=== PATIENT | female | born 1945 | race Caucasian/White ===

== ENCOUNTER 2019-03-24 16:55 | Emergency (ER) | payer OTHER ==
--- OUTSIDE RECORDS SUMMARY | 2019-03-24 18:20 | XMS REPORT ---
:1945 [facility] Address [address] [place] [address] Dr. Basilio [address] [place] [address] Care Team Providers Name Role Phone Unavailable Unavailable Unavailable Problems This patient has no known problems. Allergies, Adverse Reactions, Alerts This patient has no known allergies or adverse reactions. Medications This patient has no known medications.
[2019-03-24 18:30] LABS: Absolute Lymphocytes (CBC) 3.5 K/uL (0.7-4.9); Eosinophils % 2.6 % (0-4.4); Hematocrit 48.3 % (36.0-45.0); Lymphocytes % 46.2 % (15.3-44.8); MPV 8.8 fL (7.6-11.3); Monocytes % 10.5 % (3.3-12.3)
[2019-03-24 18:32] LABS: Protime INR 0.99
[2019-03-24] MEDS ORDERED: ALBUTEROL 2.5 MG/3 ML NEB SOL ONE (18:39)
[2019-03-24 18:56] LABS: ALT/SGPT 12 U/L (12-78); AST/SGOT 19 U/L (15-37); Albumin 4.1 g/dL (3.4-5.0); Alkaline Phosphatase 77 U/L (45-117); BUN Blood Urea Nitrogen 14 mg/dL (7-18); Bicarbonate 34 mmol/L (21-32); Bilirubin Direct 0.1 mg/dL (0-0.2); Bilirubin Total 0.5 mg/dL (0.2-1.0); Glucose Level 91 mg/dL (74-106); Magnesium 2.7 mg/dL (1.8-2.4); NT PRO-BNP 34 pg/mL (<125); Potassium 4.2 mmol/L (3.5-5.1); Protein, Total 7.6 g/dL (6.4-8.2); Sodium Level 140 mmol/L (136-145); Troponin (Emerg Dept Use Only) < 0.02 ng/mL (0.0-0.045)
--- NOTE | 2019-03-24 18:57 | RAD REPORT ---
EXAM DESCRIPTION: RAD - Chest Single View - 03/24/2019 6:51 pm CLINICAL HISTORY: COPD Chest pain. COMPARISON: Chest Single View dated 01/31/2016; CHEST PA AND LAT 2 VIEW dated 04/14/2015; CHEST PA AND LAT 2 VIEW dated 09/01/2013; CHEST SINGLE VIEW dated 01/08/2006 FINDINGS: Portable technique limits examination quality. The lungs are emphysematous but grossly clear. The heart is normal in size. No displaced fractures. IMPRESSION: No acute intrathoracic process suspected.
--- NOTE | 2019-03-24 19:44 | ER ---
Nurse's Notes [facility] Name: Lidia Wall Age: 73 yrs Sex: Female : 1945 Arrival Date: 03/24/2019 Time: 16:59 Bed 18 Private MD: Diagnosis: visit for abnormal lab (potassium) re-check;generalized weakness Presentation: 03/24 17:12 Presenting complaint: Patient states: SENT FROM PCP FOR K 6.4 ON LABS THIS AM. bp Transition of care: patient was not received from another setting of care. Onset of symptoms is unknown. Risk Assessment: Do you want to hurt yourself or someone else? Patient reports no desire to harm self or others. Initial Sepsis Screen: Does the patient meet any 2 criteria? No. Patient's initial sepsis screen is negative. Does the patient have a suspected source of infection? No. Patient's initial sepsis screen is negative. Care prior to arrival: None. 17:12 Method Of Arrival: Ambulatory bp 17:12 Acuity: EMILY 3 bp Triage Assessment: 18:13 General: Appears in no apparent distress. uncomfortable, Behavior is calm, cooperative, hj appropriate for age. Pain: Denies pain. EENT: No signs and/or symptoms were reported regarding the EENT system. Neuro: Level of Consciousness is awake, alert, obeys commands, Oriented to person, place, time, situation, Appropriate for age. Cardiovascular: Capillary refill < 3 seconds Patient's skin is warm and dry. Respiratory: Airway is patent Respiratory effort is even, unlabored, Respiratory pattern is regular, symmetrical. GI: No signs and/or symptoms were reported involving the gastrointestinal system. : No signs and/or symptoms were reported regarding the genitourinary system. Derm: No signs and/or symptoms reported regarding the dermatologic system. Musculoskeletal: No signs and/or symptoms reported regarding the musculoskeletal system. Historical: - Allergies: 17:17 NKDA; bp - Home Meds: 17:17 Plavix 75 mg Oral tab 1 tab once daily [Active]; Symbicort 160-4.5 mcg/actuation bp inhalation HFAA 2 puffs 2 times per day [Active]; rosuvastatin 10 mg oral tab 1 tab once daily [Active]; Albuterol Inhl [Active]; paroxetine HCl 25 mg oral Tb24 1 tab once daily [Active]; Microzide 12.5 mg oral cap 1 cap once daily [Active]; topiramate 50 mg oral CSpX 1 cap once daily [Active]; Lasix 40 mg Oral tab 1 tab 2 times per day [Active]; - PMHx: 17:17 COPD; CVA; Hyperlipidemia; Hypertension; bp - Immunization history:: Adult Immunizations up to date. - Social history:: Smoking status: Patient uses tobacco products, smokes one pack cigarettes per day. - Ebola Screening: : No symptoms or risks identified at this time. Screenin:13 Abuse screen: Denies threats or abuse. Denies injuries from another. Nutritional hj screening: No deficits noted. Tuberculosis screening: No symptoms or risk factors identified. Fall Risk None identified. Assessment: 18:20 General: Appears in no apparent distress. uncomfortable, Behavior is calm, cooperative, hj appropriate for age. Pain: Denies pain. Neuro: Level of Consciousness is awake, alert, obeys commands, Oriented to person, place, time, situation, Appropriate for age. Cardiovascular: Capillary refill < 3 seconds Patient's skin is warm and dry. Respiratory: Airway is patent Respiratory effort is even, unlabored, Respiratory pattern is regular, symmetrical. GI: No signs and/or symptoms were reported involving the gastrointestinal system. : No signs and/or symptoms were reported regarding the genitourinary system. EENT: No signs and/or symptoms were reported regarding the EENT system. Derm: No signs and/or symptoms reported regarding the dermatologic system. Musculoskeletal: No signs and/or symptoms reported regarding the musculoskeletal system. 19:15 Reassessment: Patient appears in no apparent distress at this time. Patient and/or cc3 family updated on plan of care and expected duration. Pain level reassessed. Patient is alert, oriented x 3, equal unlabored respirations, skin warm/dry/pink. Received this female patient from morning shift REAL Quinn with IV cannula gauge 20 at the right ACV saline locked. Patient denies pain at this time. 20:05 Reassessment: Patient appears in no apparent distress at this time. Patient and/or cc3 family updated on plan of care and expected duration. Pain level reassessed. Patient is alert, oriented x 3, equal unlabored respirations, skin warm/dry/pink. Dr. Palma discharged the patient home, no prescription given. IV cannula removed and patient left ER vitally stable and ambulatory with her daughter. Patient denies pain at this time. Patient states feeling better. Vital Signs: 17:17 BP 137 / 64; Pulse 93; Resp 18; Temp 97.8; Pulse Ox 93% ; Weight 61.23 kg; Height 5 ft. bp 8 in. (172.72 cm); 18:26 BP 122 / 79; Pulse 79; Resp 18; Pulse Ox 93% on R/A; hj 19:45 BP 114 / 76; Pulse 71; Resp 17 S; Temp 98.4(O); Pulse Ox 96% on R/A; cc3 17:17 Body Mass Index 20.53 (61.23 kg, 172.72 cm) bp ED Course: 16:59 Patient arrived in ED. mr 17:14 Triage completed. bp 17:17 Arm band placed on. bp 18:01 Justice Palma MD is Attending Physician. wa 18:09 Kai Rodrigues, REAL is Primary Nurse. hj 18:13 Patient has correct armband on for positive identification. Placed in gown. Bed in low hj position. Call light in reach. Side rails up X 1. Adult w/ patient. 18:20 Initial lab(s) drawn, by in, sent to lab. Inserted saline lock: 20 gauge in right hj antecubital area, using aseptic technique. Blood collected. 18:28 EKG done, by ED staff, reviewed by Justice Palma MD. 3 18:51 XRAY Chest (1 view) In Process Unspecified. EDVA 19:19 Lidia Lee is Primary Nurse. cc3 20:05 No provider procedures requiring assistance completed. IV discontinued, intact, cc3 bleeding controlled, No redness/swelling at site. Pressure dressing applied. Administered Medications: 18:20 Drug: Albuterol 2.5 mg Route: Inhalation; hj Outcome: 19:43 Discharge ordered by . wa 20:05 Discharged to home ambulatory, with family. cc3 20:05 Condition: stable 20:05 Discharge instructions given to patient, family, Instructed on discharge instructions, follow up and referral plans. Demonstrated understanding of instructions, follow-up care. 20:13 Patient left the ED. cc3 Signatures: Dispatcher [employer] [facility] Ronel Clifford mr Kai Rodrigues, RN Marie Escalera [facility] Justice Palma MD MD wa Peltier, Brian, RN RN bp Cordel, Charlene cc3 Corrections: (The following items were deleted from the chart) 21:40 20:05 Reassessment: Patient appears in no apparent distress at this time. Patient cc3 and/or family updated on plan of care and expected duration. Pain level reassessed. Patient is alert, oriented x 3, equal unlabored respirations, skin warm/dry/pink. Dr. Palma discharged the patient home, no prescription given. IV cannula removed and patient left ER vitally stable and ambulatory with her daughter. Patient denies pain at this time. cc3
--- NOTE | 2019-03-24 19:44 | EDPHYS ---
Physician Documentation [facility] Name: Lidia Wall Age: 73 yrs Sex: Female : 1945 Arrival Date: 03/24/2019 Time: 16:59 Bed 18 Private MD: ED Physician Justice Palma Historical: - Allergies: 03/24 17:17 NKDA; bp - Home Meds: 17:17 Plavix 75 mg Oral tab 1 tab once daily [Active]; Symbicort 160-4.5 mcg/actuation bp inhalation HFAA 2 puffs 2 times per day [Active]; rosuvastatin 10 mg oral tab 1 tab once daily [Active]; Albuterol Inhl [Active]; paroxetine HCl 25 mg oral Tb24 1 tab once daily [Active]; Microzide 12.5 mg oral cap 1 cap once daily [Active]; topiramate 50 mg oral CSpX 1 cap once daily [Active]; Lasix 40 mg Oral tab 1 tab 2 times per day [Active]; - PMHx: 17:17 COPD; CVA; Hyperlipidemia; Hypertension; bp - Immunization history:: Adult Immunizations up to date. - Social history:: Smoking status: Patient uses tobacco products, smokes one pack cigarettes per day. - Ebola Screening: : No symptoms or risks identified at this time. Vital Signs: 17:17 BP 137 / 64; Pulse 93; Resp 18; Temp 97.8; Pulse Ox 93% ; Weight 61.23 kg; Height 5 ft. bp 8 in. (172.72 cm); 18:26 BP 122 / 79; Pulse 79; Resp 18; Pulse Ox 93% on R/A; hj 19:45 BP 114 / 76; Pulse 71; Resp 17 S; Temp 98.4(O); Pulse Ox 96% on R/A; cc3 17:17 Body Mass Index 20.53 (61.23 kg, 172.72 cm) bp MDM: 18:01 Patient medically screened. 03/24 18:13 Order name: Basic Metabolic Panel 03/24 18:13 Order name: CBC with Diff; Complete Time: 19:19 03/24 18:13 Order name: LFT's; Complete Time: 19:19 03/24 18:13 Order name: Magnesium; Complete Time: 19:19 03/24 18:13 Order name: NT PRO-BNP; Complete Time: 19:19 in 03/24 18:13 Order name: PT-INR; Complete Time: 19:19 in 03/24 18:13 Order name: Troponin (emerg Dept Use Only); Complete Time: 19:19 in 03/24 18:13 Order name: XRAY Chest (1 view); Complete Time: 19:19 in 03/24 18:13 Order name: EKG; Complete Time: 18:16 in 03/24 18:13 Order name: Cardiac monitoring; Complete Time: 18:20 in 03/24 18:13 Order name: EKG - Nurse/Tech; Complete Time: 18:25 in 03/24 18:13 Order name: IV Saline Lock; Complete Time: 18: in 03/24 18:16 Order name: Basic Metabolic Panel; Complete Time: 19: [facility] 03/24 18:13 Order name: Labs collected and sent; Complete Time: 18:20 in 03/24 18:13 Order name: O2 Per Protocol; Complete Time: 18: in 03/24 18:13 Order name: O2 Sat Monitoring; Complete Time: 18:20 in Administered Medications: 18:20 Drug: Albuterol 2.5 mg Route: Inhalation; hj Disposition: 03/24/19 19:43 Discharged to Home. Impression: visit for abnormal lab (potassium) re-check, generalized weakness. - Condition is Stable. - Discharge Instructions: Weakness, [id number] - Medication Reconciliation Form, Thank You Letter, Antibiotic Education, Prescription Opioid Use form. - Follow up: Private Physician; When: 1 - 2 days; Reason: Recheck today's complaints. - Notes: your potassium is noted within normal limits today. please bring this lab to your doctors office for further evaluation Signatures: Dispatcher [facility] Kai Rodrigues RN RN hj Appiah, William, MD MD wa Peltier, Brian, RN RN Lidia Leach cc3 Corrections: (The following items were deleted from the chart) 20:13 19:43 03/24/2019 19:43 Discharged to Home. Impression: visit for abnormal lab cc3 (potassium) re-check; generalized weakness. Condition is Stable. Forms are Medication Reconciliation Form, Thank You Letter, Antibiotic Education, Prescription Opioid Use. Follow up: Private Physician; When: 1 - 2 days; Reason: Recheck today's complaints. wa
[2019-03-24 21:12] VITALS: TEMP 97.8; O2SAT 93
[2019-03-24 21:13] VITALS: BP 122/79
--- NOTE | 2019-03-24 22:20 | EKG ---
Test Date: 2019-03-24 Test Time: 18:28:34 Bulldogger: DEE MEASUREMENT RESULTS: Intervals: Rate: 73 CT: 162 QRSD: 88 QT: 430 QTc: 473 [place]: P: 76 CT: 162 QRS: 33 T: 42 INTERPRETIVE STATEMENTS: Normal sinus rhythm Biatrial enlargement Septal infarct, age undetermined Abnormal ECG Compared to ECG 03/03/2016 10:19:06 Atrial abnormality now present Myocardial infarct finding now present Sinus bradycardia no longer present Electronically Signed On 03-24-19 22:20:11 CDT by Bird Montoya
== END 2019-03-24 20:13 | disposition home or self-care (01) ==
LOC: ER 16:55
DX: E87.6 Hypokalemia (principal); R53.1 Weakness
CPT/HCPCS: 36415; 71045; 80048; 80076; 83735; 83880; 84484; 85025; 85610; 93005; 99284

== ENCOUNTER 2019-10-27 07:48 | Day surgery (SDC) | payer OTHER ==
--- OUTSIDE RECORDS SUMMARY | 2019-10-27 07:51 | XMS REPORT ---
:1945 Author Organization eClinicalWorks Care Team Providers Name Role Phone Loretta Kumar Provider Role Unavailable Allergies, Adverse Reactions, Alerts Substance Reaction Event Type N.K.D.A. Info Not Available Non Drug Allergy Problems Problem Type Condition Code Onset Dates Condition Status Problem Lumbago with sciatica, left side M54.42 Active Problem History of cerebrovascular accident I69.90 Active with current residual effects Problem Tobacco abuse counseling Z71.6 Active Problem Pure hypercholesterolemia E78.00 Active Problem Migraine, unspecified, not G43.901 Active intractable, with status migrainosus Problem Essential hypertension I10 Active Problem Peripheral vascular disease I73.9 Active Problem Depression with anxiety F41.8 Active Problem Hyperlipidemia E78.5 Active Problem COPD (chronic obstructive pulmonary J44.9 Active disease) Assessment Tobacco abuse counseling Z71.6 Active Assessment Pure hypercholesterolemia E78.00 Active Assessment Lesion of skin of cheek L98.9 Active Assessment Sebaceous cyst L72.3 Active Assessment Benign essential HTN I10 Active Assessment Depression with anxiety F41.8 Active Problem Other chronic pain G89.29 Active Assessment COPD (chronic obstructive pulmonary J44.9 Active disease) Problem Lumbago with sciatica, right side M54.41 Active Medications Medication Code Code Instructions Start End Status Dosage System Date Date ProAir HFA [facility] 10686529173 90MCG Active 2 puffs as Inhalation needed every 6 hrs as needed Simvastatin ND 87634049222 20 MG Orally Active 1 tablet Once a day in the evening PARoxetine HCl [facility] 47875952488 25 MG Orally Active 1 tablet ER Once a day in the morning Lisinopril ND 35865972572 20 MG Orally March Active 1 tablet Once a day 2017 Lasix [facility] 63972772423 40 MG Orally Active 1 tablet Once a day Trelegy Ellipta [facility] 24807983118 100-62.5-25 Active 1 puff MCG/INH Inhalation Once a day BuPROPion HCl [facility] [address]-36 150 MG Orally Active 1 tablet ER (XL) Twice a day in the morning Plavix [facility] 15298255548 75 MG Orally December Active 1 tablet Once a day 2017 Results No Known Results Summary Purpose eClinicalWorks Submission
--- OUTSIDE RECORDS SUMMARY | 2019-10-27 07:51 | XMS REPORT ---
:1945 Author Organization eClinicalWorks Care Team Providers Name Role Phone Loretta Kumar Provider Role Unavailable Allergies, Adverse Reactions, Alerts Substance Reaction Event Type N.K.D.A. Info Not Available Non Drug Allergy Problems Problem Type Condition Code Onset Dates Condition Status Problem History of cerebrovascular I69.90 Active accident with current residual effects Problem Peripheral vascular disease I73.9 Active Problem Depression with anxiety F41.8 Active Problem Puncture wound T14.8XXA Active Problem Essential hypertension I10 Active Problem Positive colorectal cancer R19.5 Active screening using Cologuard test Problem Hyperlipidemia E78.5 Active Problem COPD (chronic obstructive J44.9 Active pulmonary disease) Problem Pure hypercholesterolemia E78.00 Active Problem Migraine, unspecified, not G43.901 Active intractable, with status migrainosus Assessment Essential hypertension I10 Active Assessment Depression with anxiety F41.8 Active Assessment Positive colorectal cancer R19.5 Active screening using Cologuard test Problem Other chronic pain G89.29 Active Problem Lumbago with sciatica, right side M54.41 Active Assessment COPD (chronic obstructive J44.9 Active pulmonary disease) Problem Lumbago with sciatica, left side M54.42 Active Problem Tobacco abuse counseling Z71.6 Active Medications Medication Code Code Instructions Start End Status Dosage System Date Date Lisinopril [facility] 41789245253 20 MG Orally December Active 1 tablet Once a day 2017 PARoxetine HCl [facility] 50860327096 25 MG Orally Active 1 tablet ER Once a day in the morning BuPROPion HCl [facility] 05006050985 150 MG Orally Active 1 tablet ER (XL) Twice a day in the morning Simvastatin ND 65786633020 20 MG Orally Active 1 tablet Once a day in the evening Lasix ND 21574818025 40 MG Orally Active 1 tablet Once a day Trelegy Ellipta [facility] 45225021171 100-62.5-25 Active 1 puff MCG/INH Inhalation Once a day Plavix [facility] 64312445258 75 MG Orally December Active 1 tablet Once a day 2017 ProAir HFA [facility] 84145337798 90MCG Inhalation Active 2 puffs as every 6 hrs as needed needed Results No Known Results Summary Purpose eClinicalWorks Submission
--- OUTSIDE RECORDS SUMMARY | 2019-10-27 07:51 | XMS REPORT ---
:1945 Author Organization eClinicalWorks Care Team Providers Name Role Phone Loretta Kumar Provider Role Unavailable Allergies, Adverse Reactions, Alerts Substance Reaction Event Type N.K.D.A. Info Not Available Non Drug Allergy Problems Problem Type Condition Code Onset Dates Condition Status Problem Tobacco abuse counseling Z71.6 Active Problem Depression with anxiety F41.8 Active Problem History of cerebrovascular I69.90 Active accident with current residual effects Problem Essential hypertension I10 Active Problem Pure hypercholesterolemia E78.00 Active Problem Puncture wound T14.8XXA Active Problem COPD (chronic obstructive J44.9 Active pulmonary disease) Problem Peripheral vascular disease I73.9 Active Problem Migraine, unspecified, not G43.901 Active intractable, with status migrainosus Problem Hyperlipidemia E78.5 Active Problem Other chronic pain G89.29 Active Assessment Puncture wound T14.8XXA Active Problem Lumbago with sciatica, right side M54.41 Active Assessment Encounter for immunization Z23 Active Problem Lumbago with sciatica, left side M54.42 Active Medications Medication Code Code Instructions Start End Status Dosage System Date Date Lasix [facility] 78922999432 40 MG Orally Active 1 tablet Once a day BuPROPion HCl [facility] [address]-04 150 MG Orally Active 1 tablet ER (XL) Twice a day in the morning Plavix [facility] 69369629517 75 MG Orally December Active 1 tablet Once a day 2017 Simvastatin [facility] 28147586203 20 MG Orally Active 1 tablet Once a day in the evening PARoxetine HCl [facility] 19799091152 25 MG Orally Active 1 tablet ER Once a day in the morning Lisinopril [facility] 62796562051 20 MG Orally December Active 1 tablet Once a day 2017 ProAir HFA [facility] 45802998962 90MCG Active 2 puffs as Inhalation needed every 6 hrs as needed Trelegy Ellipta [facility] 66059791740 100-62.5-25 Active 1 puff MCG/INH Inhalation Once a day Results No Known Results Immunizations Vaccine Administration Date FLUZONE HIGH DOSE OVER 65 Sep 08, 2019 Prevnar 13 -Pneumonia Vaccine Sep 08, 2019 Td Sep 08, 2019 Summary Purpose eClinicalWorks Submission
--- OUTSIDE RECORDS SUMMARY | 2019-10-27 07:51 | XMS REPORT ---
:1945 Author Organization [facility] Address [address] [place] [address] Dr. Basilio [address] [place] [address] Care Team Providers Name Role Phone Unavailable Unavailable Unavailable Problems This patient has no known problems. Allergies, Adverse Reactions, Alerts This patient has no known allergies or adverse reactions. Medications This patient has no known medications.
[2019-10-27] MEDS ORDERED: Ringers Lactate 1,000 ML IV ONE (08:18)
[2019-10-27 08:32] VITALS: BP 143/62; TEMP 98.7; O2SAT 99
== END 2019-10-27 10:21 | disposition home or self-care (01) ==
LOC: OR 07:48
PROVIDERS: ATTEND Surgery
DX: R19.5 Other fecal abnormalities (principal); Z53.8 Procedure and treatment not carried out for other reasons; J44.9 Chronic obstructive pulmonary disease, unspecified; F17.200 Nicotine dependence, unspecified, uncomplicated; Z79.02 Long term (current) use of antithrombotics/antiplatelets; Z86.73 Personal history of transient ischemic attack (TIA), and cerebral infarction without residual deficits
CPT/HCPCS: J7120

== ENCOUNTER 2019-11-05 07:27 | Day surgery (SDC) | payer OTHER ==
--- OUTSIDE RECORDS SUMMARY | 2019-11-05 07:29 | XMS REPORT ---
:1945 Author [facility] Address [address] [place] [address] Dr. Basilio [address] [place] [address] Care Team Providers Name Role Phone Unavailable Unavailable Unavailable Problems This patient has no known problems. Allergies, Adverse Reactions, Alerts This patient has no known allergies or adverse reactions. Medications This patient has no known medications.
--- OUTSIDE RECORDS SUMMARY | 2019-11-05 07:29 | XMS REPORT ---
[...] Status Dosage System Date Date ProAir HFA [facility] 10559222620 90MCG Active 2 puffs as Inhalation needed every 6 hrs as needed Simvastatin ND 11960296295 20 MG Orally Active 1 tablet Once a day in the evening PARoxetine HCl [facility] 15240719030 25 MG Orally Active 1 tablet ER Once a day in the morning Lisinopril ND 75798272622 20 MG Orally March Active 1 tablet Once a day 2017 Lasix [facility] 72359889512 40 MG Orally Active 1 tablet Once a day Trelegy Ellipta [facility] 76393890077 100-62.5-25 Active 1 puff MCG/INH Inhalation Once a day BuPROPion HCl [facility] [address]-72 150 MG Orally Active 1 tablet ER (XL) Twice a day in the morning Plavix [facility] 71560666548 75 MG Orally December Active 1 tablet Once a day 2017 Results No Known Results Summary Purpose eClinicalWorks Submission
--- OUTSIDE RECORDS SUMMARY | 2019-11-05 07:29 | XMS REPORT ---
[...] End Status Dosage System Date Date Lasix [facility] 69532357898 40 MG Orally Active 1 tablet Once a day BuPROPion HCl [facility] [address]-06 150 MG Orally Active 1 tablet ER (XL) Twice a day in the morning Plavix [facility] 36395411894 75 MG Orally December Active 1 tablet Once a day [address] [facility] 25650040196 20 MG Orally Active 1 tablet Once a day in the evening PARoxetine HCl [facility] 65761805396 25 MG Orally Active 1 tablet ER Once a day in the morning Lisinopril [facility] 69320897557 20 MG Orally December Active 1 tablet Once a day 2017 ProAir HFA [facility] 26583031627 90MCG Active 2 puffs as Inhalation needed every 6 hrs as needed Trelegy Ellipta [facility] 43781898223 100-62.5-25 Active 1 puff MCG/INH Inhalation Once a day Results No Known Results Immunizations Vaccine Administration Date FLUZONE HIGH DOSE OVER 65 Sep 08, 2019 Prevnar 13 -Pneumonia Vaccine Sep 08, 2019 Td Sep 08, 2019 Summary Purpose eClinicalWorks Submission
--- OUTSIDE RECORDS SUMMARY | 2019-11-05 07:30 | XMS REPORT ---
[...] End Status Dosage System Date Date Lisinopril [facility] 46383816379 20 MG Orally December Active 1 tablet Once a day 2017 PARoxetine HCl [facility] 36214679263 25 MG Orally Active 1 tablet ER Once a day in the morning BuPROPion HCl [facility] 10901478893 150 MG Orally Active 1 tablet ER (XL) Twice a day in the morning Simvastatin ND 80305842392 20 MG Orally Active 1 tablet Once a day in the evening Lasix ND 72211422615 40 MG Orally Active 1 tablet Once a day Trelegy Ellipta [facility] 26742871092 100-62.5-25 Active 1 puff MCG/INH Inhalation Once a day Plavix [facility] 70876040780 75 MG Orally December Active 1 tablet Once a day 2017 ProAir HFA [facility] 56120931525 90MCG Inhalation Active 2 puffs as every 6 hrs as needed needed Results No Known Results Summary Purpose eClinicalWorks Submission
[2019-11-05] MEDS ORDERED: Ringers Lactate 1,000 ML IV ONE (07:47)
[2019-11-05] MEDS ORDERED: propofoL 200 MG/20 ML VIAL IV ONE (08:15)
[2019-11-05] MEDS ORDERED: LIDOCAINE 1% MPF 5 ML VIAL ONE (08:15)
[2019-11-05] MEDS ORDERED: EPINEPHRINE/PF 1 MG/ML AMP ONE (08:16)
[2019-11-05 08:53] VITALS: TEMP 98
--- NOTE | 2019-11-05 09:20 | ENDO RPT ---
[address], [address] COLONOSCOPY PROCEDURE REPORT EXAM DATE: 11/05/2019 PATIENT NAME: Lidia Wall MR #: [id number] BIRTHDATE: 1945 ATTENDING: Dario Velasquez DR STATUS: outpatient PUBLISHING EDITOR: Marybeth Vela RN and Quinn Bennett [facility] INDICATIONS: The patient is a 73 yr old Female here for a colonoscopy due to Positive Cologuard (Fecal FIT) Test PROCEDURE PERFORMED: Colonoscopy with biopsy - cold polypectomy and Colonoscopy with directed submucosal injection(s) any substance MEDICATIONS: Per Anesthesia. ESTIMATED BLOOD LOSS: None CONSENT: The patient understands the risks and benefits of the procedure and understands that these risks include, but are not limited to: sedation, allergic reaction, infection, perforation and/or bleeding. Alternative means of evaluation and treatment include, among others: physical exam, x-rays, and/or surgical intervention. The patient elects to proceed with this endoscopic procedure. DESCRIPTION OF PROCEDURE: During intra-op preparation period all mechanical medical equipment was checked for proper function. Hand hygiene and appropriate measures for infection prevention was taken. Procedure, possible complications, alternatives including, but not limited to possibility of bleeding, perforation, tear, infection, sepsis, need for surgery, need for blood transfusion, were explained to the patient. After the risks, benefits and alternatives of the procedure were thoroughly explained, Informed consent was verified, confirmed and timeout was successfully executed by the treatment team. The patient was placed in the left lateral position. A digital rectal exam was performed and revealed internal hemorrhoids. After appropriate level of anesthesia, the scope was passed. The Pentax EC-[id number] ([id number]) endoscope was introduced through the anus and advanced to the cecum, which was identified by both the appendix and ileocecal valve. The quality of the prep was poor. The instrument was then slowly withdrawn as the colon was fully examined. Scope withdrawal time was 15 minutes. COLON FINDINGS: Multiple small and medium sized polypoid shaped and smooth sessile polyps with mucous caps were found throughout the entire examined colon. The largest was in the LEFT colon, it was polypoid on a stalk, and was removed with hot snare and an additional margin was snared and removed as well. A polypectomy was performed using snare cautery on most of the polyps, with a cold snare and with cold forceps. The resection was complete, the polyp tissue was partially retrieved and sent to histology.All polyps were removed completely, howvever one polyp from the RIGHT colon which was small, and suctioned into the scope channel was not found in the trap. All other polyps were removed in entirety and sent for pathology. Retroflexed views revealed small hemorrhoids. The scope was then completely withdrawn from the patient and the procedure terminated. ADVERSE EVENTS: There were no complications. IMPRESSIONS: Multiple small medium sized sessile polyps were found throughout the entire examined colon; polypectomy was performed using snare cautery, with a cold snare and with cold forceps RECOMMENDATIONS: 1. await biopsy results 2. avoid NSAIDS for 2 weeks 3. fiber rich diet 4. follow-up: office 2 week(s) 5. Monitor for any evidence of rectal bleeding. 6. yearly hemoquant 7. hemorrhoidal hygiene 8. continue surveillance RECALL: Return in 1 year(s) for Colonoscopy, pending biopsy results. Dario Velasquez DR eSigned: Dario Velasquez DR 11/05/2019 9:20 AM cc: CPT CODES: ICD9 CODES: PATIENT NAME: Lidia Wall MR#: [id number]
[2019-11-05 09:56] VITALS: BP 118/73; O2SAT 98
== END 2019-11-05 09:53 | disposition home or self-care (01) ==
LOC: OR 07:27
PROVIDERS: ATTEND Surgery
PROC: 0DBF8ZX Excision of Right Large Intestine, Via Natural or Artificial Opening Endoscopic, Diagnostic (ICD-10-PCS; 2019-11-05)
PROC: 0DBP8ZX Excision of Rectum, Via Natural or Artificial Opening Endoscopic, Diagnostic (ICD-10-PCS; 2019-11-05)
PROC: 0DBG8ZX Excision of Left Large Intestine, Via Natural or Artificial Opening Endoscopic, Diagnostic (ICD-10-PCS; principal; 2019-11-05 08:30)
DX: D12.4 Benign neoplasm of descending colon (principal); D12.2 Benign neoplasm of ascending colon; K62.1 Rectal polyp; K64.8 Other hemorrhoids; J44.9 Chronic obstructive pulmonary disease, unspecified; I10 Essential (primary) hypertension; F17.200 Nicotine dependence, unspecified, uncomplicated
CPT/HCPCS: 88305; 45385; J2704; J0171; J7120

== ENCOUNTER 2019-11-24 09:16 | Day surgery (SDC) | payer OTHER ==
[2019-11-21 13:25] LABS: Absolute Lymphocytes (CBC) 2.2 K/uL (0.7-4.9); Basophils % 0.8 % (0-1.3); Hematocrit 49.6 % (36.0-45.0); Lymphocytes % 37.1 % (15.3-44.8); RBC Red Blood Cell Count 5.15 M/uL (3.86-4.86)
[2019-11-21 13:42] LABS: BUN Blood Urea Nitrogen 5 mg/dL (7-18); Bicarbonate 30 mmol/L (21-32); Glucose Level 86 mg/dL (74-106); Sodium Level 139 mmol/L (136-145)
--- OUTSIDE RECORDS SUMMARY | 2019-11-24 09:37 | XMS REPORT ---
[...] Status Dosage System Date Date ProAir HFA [facility] 45037893064 90MCG Active 2 puffs as Inhalation needed every 6 hrs as needed Simvastatin ND 43016386486 20 MG Orally Active 1 tablet Once a day in the evening PARoxetine HCl [facility] 01713106296 25 MG Orally Active 1 tablet ER Once a day in the morning Lisinopril ND 88797561833 20 MG Orally March Active 1 tablet Once a day 2017 Lasix [facility] 72954627147 40 MG Orally Active 1 tablet Once a day Trelegy Ellipta [facility] 18371509680 100-62.5-25 Active 1 puff MCG/INH Inhalation Once a day BuPROPion HCl [facility] [address]-54 150 MG Orally Active 1 tablet ER (XL) Twice a day in the morning Plavix [facility] 40735967346 75 MG Orally December Active 1 tablet Once a day 2017 Results No Known Results Summary Purpose eClinicalWorks Submission
--- OUTSIDE RECORDS SUMMARY | 2019-11-24 09:37 | XMS REPORT ---
:1945 [facility] Organization [facility] Address [address] [place] [address] [place] [id number] Care Team Providers Name Role Phone Unavailable Unavailable Unavailable Problems This patient has no known problems. Allergies, Adverse Reactions, Alerts This patient has no known allergies or adverse reactions. Medications This patient has no known medications.
--- OUTSIDE RECORDS SUMMARY | 2019-11-24 09:37 | XMS REPORT ---
[...] End Status Dosage System Date Date Lisinopril [facility] 20980821204 20 MG Orally December Active 1 tablet Once a day 2017 PARoxetine HCl [facility] 71808473040 25 MG Orally Active 1 tablet ER Once a day in the morning BuPROPion HCl [facility] 01265528243 150 MG Orally Active 1 tablet ER (XL) Twice a day in the morning Simvastatin ND 80716884777 20 MG Orally Active 1 tablet Once a day in the evening Lasix ND 74257708112 40 MG Orally Active 1 tablet Once a day Trelegy Ellipta [facility] 31091000277 100-62.5-25 Active 1 puff MCG/INH Inhalation Once a day Plavix [facility] 12618481037 75 MG Orally December Active 1 tablet Once a day 2017 ProAir HFA [facility] [place] 92532332046 90MCG Inhalation Active 2 puffs as every 6 hrs as needed needed Results No Known Results Summary Purpose eClinicalWorks Submission
--- OUTSIDE RECORDS SUMMARY | 2019-11-24 09:37 | XMS REPORT ---
[...] End Status Dosage System Date Date Lasix [facility] 26873983729 40 MG Orally Active 1 tablet Once a day BuPROPion HCl [facility] [address]-10 150 MG Orally Active 1 tablet ER (XL) Twice a day in the morning Plavix [facility] 01908640809 75 MG Orally December Active 1 tablet Once a day [address] [facility] 56649424704 20 MG Orally Active 1 tablet Once a day in the evening PARoxetine HCl [facility] 02811720309 25 MG Orally Active 1 tablet ER Once a day in the morning Lisinopril [facility] 28083496836 20 MG Orally December Active 1 tablet Once a day 2017 ProAir HFA [facility] 58763175098 90MCG Active 2 puffs as Inhalation needed every 6 hrs as needed Trelegy Ellipta [facility] 64135321764 100-62.5-25 Active 1 puff MCG/INH Inhalation Once a day Results No Known Results Immunizations Vaccine Administration Date FLUZONE HIGH DOSE OVER 65 Sep 08, 2019 Prevnar 13 -Pneumonia Vaccine Sep 08, 2019 Td Sep 08, 2019 Summary Purpose eClinicalWorks Submission
[2019-11-24] MEDS ORDERED: Ringers Lactate 1,000 ML IV ONE (09:38)
[2019-11-24] MEDS ORDERED: CEFAZOLIN/SWI 1gm 1 GM/10 ML SYR ONE (09:39)
[2019-11-24] MEDS ORDERED: propofoL 200 MG/20 ML VIAL IV ONE (10:52)
[2019-11-24] MEDS ORDERED: FENTANYL CITR 100 MCG/2 ML ONE (10:52)
[2019-11-24] MEDS ORDERED: MIDAZOLAM HCL 2 MG/2 ML INJ ONE (10:53)
[2019-11-24] MEDS ORDERED: LIDOCAINE 2% MPF 5 ML VIAL ONE (10:53)
[2019-11-24] MEDS ORDERED: ONDANSETRON 4 MG/2 ML VIAL ONE (10:53)
[2019-11-24] MEDS ORDERED: EPHEDRINE SULF 50 MG/ML VIAL ONE (11:08)
--- NOTE | 2019-11-24 11:52 | P.BOP ---
Preoperative diagnosis: four tender ulcerated back subq masses Postoperative diagnosis: same Primary procedure: Excisional biopsy of four ulcerated back subq masses Secondary procedure: 1. upper mid back, 2. Upper right lateral back Other procedure(s): 3. Mid back, 4. Left lower back Washer Carcass: Terri Bennett) Estimated blood loss: <10cc Specimen: masses Findings: as above Anesthesia: General Complications: None Transferred to: Recovery Room Condition: Good
[2019-11-24] MEDS: MORPHINE 4 MG/ML SYR ONE ×2 (12:22→12:29)
[2019-11-24 13:22] VITALS: BP 112/42; TEMP 96.8; O2SAT 94
[2019-11-24] MEDS ORDERED: CODEINE 30MG/APAP 300MG TAB ONE (13:31)
--- NOTE | 2019-11-25 00:50 | DS ---
Date of Discharge: 11/24/2019 Diagnosis: Four tender back subcutaneous masses. Disposition: Home. Activity: As tolerated. No heavy lifting. Followup: Follow up in my office in 1 week. Call for appointment at [phone]. Keep areas dry for 4 8 hours, then may shower. Medications: See orders. FARAZ/ZACK Voice ID: [id number] Report ID: [id number]
--- NOTE | 2019-11-25 00:56 | OP ---
Date of Procedure: 11/24/2019 Surgeon: Kai Jaffe MD Preoperative Diagnosis: Four tender ulcerated back subcutaneous masses. Postoperative Diagnosis: Four tender ulcerated back subcutaneous masses. Procedure: 1.Excisional biopsy of upper mid back sewer ulcerated subcutaneous mass. 2.Excisional biopsy of upper right lateral back, ulcerated back subcutaneous mass. 3.Excisional biopsy of 4 ulcerated back subcutaneous masses, midback. 4.Excisional biopsy of left lower back ulcerated back subcutaneous mass. Disposition: Home. Activity: As tolerated. No heavy lifting. Followup: Follow up in my office in 1 week. Call for appointment [phone]. Specimen: Masses. Anesthesia: General plus local. Indications: This is the case of a female, who comes to us with a few masses on the back, some of th em have some change in color, they have ulceration and she wants them excised. Initially, she saw 3, today she noticed another one that she wants excised since over the weekend, it gave her some troubl e. She wants that included, so we included in the consent. The locations as described above. Each 1 was done using same technique individually to avoid cross contamination. They were done using same technique, which consisted of wedge incision on the skin to include the ulceration, skin opened. Th is incision taken all the way down to subcutaneous tissue. The mass completely excised and then this was closed with a combination of 3-0 chromic subcutaneous, 3-0 chromic mid subcutaneous and then the skin with 3-0 nylon. Each procedure was done individually. Each procedure was closed after injecti ng local anesthetic irrigation and checking for hemostasis. Patient tolerated each procedure well. Patient was sent to recovery in stable condition. Sponge count and instrument counts were correct. FARAZ/ZACK Voice ID: [id number] Report ID: [id number]
== END 2019-11-24 13:55 | disposition home or self-care (01) ==
LOC: OR 09:16
PROVIDERS: ATTEND Surgery
PROC: 0JB70ZZ Excision of Back Subcutaneous Tissue and Fascia, Open Approach (ICD-10-PCS; 2019-11-24)
PROC: 0JB70ZZ Excision of Back Subcutaneous Tissue and Fascia, Open Approach (ICD-10-PCS; 2019-11-24)
PROC: 0JB70ZZ Excision of Back Subcutaneous Tissue and Fascia, Open Approach (ICD-10-PCS; 2019-11-24)
PROC: 0JB70ZZ Excision of Back Subcutaneous Tissue and Fascia, Open Approach (ICD-10-PCS; principal; 2019-11-24 10:30)
DX: L72.0 Epidermal cyst (principal); J44.9 Chronic obstructive pulmonary disease, unspecified; I11.0 Hypertensive heart disease with heart failure; I50.9 Heart failure, unspecified; Z79.02 Long term (current) use of antithrombotics/antiplatelets; F17.210 Nicotine dependence, cigarettes, uncomplicated; Z86.73 Personal history of transient ischemic attack (TIA), and cerebral infarction without residual deficits
CPT/HCPCS: 85025; 80048; 36415; 88304; 11403 ×3; 11404; J2704; J2250; J3010; J0690; J7120; J2405; 88305

== ENCOUNTER 2021-01-19 07:51 | Day surgery (SDC) | payer OTHER ==
[2021-01-19] MEDS ORDERED: Ringers Lactate 1,000 ML IV ONE (08:42)
[2021-01-19] MEDS ORDERED: LIDOCAINE 1% MPF 5 ML VIAL ONE (11:03)
[2021-01-19] MEDS ORDERED: propofoL 200 MG/20 ML VIAL IV ONE ×2 (11:03)
--- NOTE | 2021-01-19 11:52 | ENDO RPT ---
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 ESTIMATED BLOOD LOSS: None CONSENT: The patient understands the risks and benefits of the procedure and understands that these risks include, but are not limited to: sedation, allergic reaction, infection, perforation and/or bleeding. Alternative means of evaluation and treatment include, among others: physical exam, x-rays, and/or surgical intervention. The patient elects to proceed with this endoscopic procedure. DESCRIPTION OF PROCEDURE: During intra-op preparation period all mechanical medical equipment was checked for proper function. Hand hygiene and appropriate measures for infection prevention was taken. Procedure, possible complications, alternatives including, but not limited to possibility of bleeding, perforation, tear, infection, sepsis, need for surgery, need for blood transfusion, were explained to the patient. After the risks, benefits and alternatives of the procedure were thoroughly explained, Informed consent was verified, confirmed and timeout was successfully executed by the treatment team. The patient was placed in the left lateral position. A digital rectal exam was performed and revealed internal hemorrhoids. After appropriate level of anesthesia, the scope was passed. The EC-3890Li ([id number]) and EC-[id number] ([id number]) endoscope was introduced through the anus and advanced to the ascending colon. The quality of the prep was inadequate. The instrument was then slowly withdrawn as the colon was fully examined. Scope withdrawal time was 25 minutes. COLON FINDINGS: Redundant tortuous colon, inadequate prep. Retroflexed views revealed no abnormalities. The scope was then completely withdrawn from the patient and the procedure terminated. ADVERSE EVENTS: There were no complications. IMPRESSIONS: Redundant tortuous colon, inadequate prep RECOMMENDATIONS: 1. avoid NSAIDS for 2 weeks 2. follow-up: office 1 week(s) RECALL: Return in 1 week(s) for Colonoscopy. inadequate prep Dario Velasquez DR eSigned: Dario Velasquez DR 01/19/2021 11:51 AM cc: CPT CODES: ICD9 CODES:
[2021-01-19 13:55] VITALS: TEMP 97.6; O2SAT 100
[2021-01-19 13:58] VITALS: BP 126/66
== END 2021-01-19 12:29 | disposition home or self-care (01) ==
LOC: OR 07:51
PROVIDERS: ATTEND Surgery
PROC: 0DJD8ZZ Inspection of Lower Intestinal Tract, Via Natural or Artificial Opening Endoscopic (ICD-10-PCS; principal; 2021-01-19 10:15)
DX: Z12.11 Encounter for screening for malignant neoplasm of colon (principal); Z20.822 Contact with and (suspected) exposure to COVID-19
CPT/HCPCS: 45378; U0002; J2704 ×2; J7120

== ENCOUNTER 2021-02-01 08:55 | Day surgery (SDC) | payer OTHER ==
[2021-02-01] MEDS ORDERED: Ringers Lactate 1,000 ML IV ONE (09:32)
[2021-02-01] MEDS ORDERED: ALBUTEROL 2.5 MG/3 ML NEB SOL ONE (09:38)
[2021-02-01 10:06] LABS: BUN Blood Urea Nitrogen 5 mg/dL (7-18); Bicarbonate 29 mmol/L (21-32); Glucose Level 105 mg/dL (74-106); Potassium 3.5 mmol/L (3.5-5.1); Sodium Level 143 mmol/L (136-145)
[2021-02-01] MEDS ORDERED: NS 0.9% VIAL 10 ML ONE (11:03)
[2021-02-01] MEDS ORDERED: propofoL 200 MG/20 ML VIAL IV ONE ×2 (11:03→11:33)
[2021-02-01] MEDS ORDERED: LIDOCAINE 1% MPF 5 ML VIAL ONE (11:03)
[2021-02-01] MEDS ORDERED: Phenylephrine HCl 10 MG/ML 1 ML VIAL ONE (11:03)
--- NOTE | 2021-02-01 11:42 | ENDO RPT ---
[address], [address] COLONOSCOPY PROCEDURE REPORT EXAM DATE: 02/01/2021 PATIENT NAME: Lidia Wall MR #: [id number] BIRTHDATE: 1945 ATTENDING: Dario Velasquez DR STATUS: outpatient STENCIL CUTTER: Adriana Chakraborty and Mattie Ferrell RN INDICATIONS: The patient is a 75 yr old Female here for a colonoscopy due to colon cancer screening PROCEDURE PERFORMED: Colonoscopy with biopsy - cold polypectomy MEDICATIONS: Per Anesthesia. ESTIMATED BLOOD LOSS: None CONSENT: The patient understands the risks and benefits of the procedure and understands that these risks include, but are not limited to: sedation, allergic reaction, infection, perforation and/or bleeding. Alternative means of evaluation and treatment include, among others: physical exam, x-rays, and/or surgical intervention. The patient elects to proceed with this endoscopic procedure. DESCRIPTION OF PROCEDURE: During intra-op preparation period all mechanical medical equipment was checked for proper function. Hand hygiene and appropriate measures for infection prevention was taken. Procedure, possible complications, alternatives including, but not limited to possibility of bleeding, perforation, tear, infection, sepsis, need for surgery, need for blood transfusion, were explained to the patient. After the risks, benefits and alternatives of the procedure were thoroughly explained, Informed consent was verified, confirmed and timeout was successfully executed by the treatment team. The patient was placed in the left lateral position. A digital rectal exam was performed and revealed a palpable rectal mass and A digital rectal exam was performed and revealed internal hemorrhoids. After appropriate level of anesthesia, the scope was passed. The EC-3890Li ([id number]) endoscope was introduced through the anus and advanced to the cecum, which was identified by the ileocecal valve. The quality of the prep was poor. The colon was somewhat redundant and spastic. The instrument was then slowly withdrawn as the colon was fully examined. Scope withdrawal time was 15 minutes. COLON FINDINGS: Small internal hemorrhoids were found. Six smooth and polypoid shaped semi-pedunculated polyps ranging between 3-7mm in size were found in the right colon. A polypectomy was performed with a cold snare. The resection was complete, the polyp tissue was completely retrieved and sent to histology. A few smooth sessile polyps ranging between 3-5mm in size were found in the left colon. A polypectomy was performed with cold forceps. The resection was complete, the polyp tissue was completely retrieved and sent to histology. Multiple small polypoid shaped and smooth semi-pedunculated polyps were found in the rectosigmoid colon. A polypectomy was performed with cold forceps. The resection was complete, the polyp tissue was partially retrieved and sent to histology. A firm mass measuring 1 X 2cm in size was found in the rectum. A biopsy of the lesion was performed using cold forceps. Retroflexed views revealed no abnormalities. The scope was then completely withdrawn from the patient and the procedure terminated. ADVERSE EVENTS: There were no complications. IMPRESSIONS: 1. Small internal hemorrhoids 2. Six semi-pedunculated polyps ranging between 3-7mm in size were found in the right colon; polypectomy was performed with a cold snare 3. Few sessile polyps ranging between 3-5mm in size were found in the left colon; polypectomy was performed with cold forceps 4. Multiple small semi-pedunculated polyps were found in the rectosigmoid colon; polypectomy was performed with cold forceps 5. Mass measuring 1 X 2cm in size was found in the rectum; biopsy of the lesion was performed using cold forceps RECOMMENDATIONS: 1. await biopsy results 2. fiber rich diet 3. avoid NSAIDS for 2 weeks 4. follow-up: office 2 week(s) 5. Monitor for any evidence of rectal bleeding. 6. surgery - transanal excision of mass 7. hemorrhoidal hygiene 8. increase dietary water RECALL: Return in 1 year(s) for Colonoscopy, pending biopsy results. Pending Biopsy Dario Velasquez DR eSigned: Dario Velasquez DR 02/01/2021 11:42 AM cc: CPT CODES: ICD9 CODES: PATIENT NAME: Lidia Wall MR#: [id number]
[2021-02-01 12:52] VITALS: TEMP 97; O2SAT 100
[2021-02-01 12:54] VITALS: BP 129/55
--- NOTE | 2021-02-02 07:38 | EKG ---
Test Date: 2021-02-01 Test Time: 08:34:32 Shake Packer: CAMILA MEASUREMENT RESULTS: Intervals: Rate: 66 OH: 170 QRSD: 90 QT: 458 QTc: 480 Solomon: P: 72 OH: 170 QRS: 17 T: 46 INTERPRETIVE STATEMENTS: Normal sinus rhythm Normal ECG Compared to ECG 03/24/2019 18:28:34 Atrial abnormality no longer present Myocardial infarct finding no longer present Electronically Signed On 02-02-21 07:35:26 CDT by Raulito Laird
== END 2021-02-01 12:05 | disposition home or self-care (01) ==
LOC: PRE 08:55
PROVIDERS: ATTEND Surgery
PROC: 0DBG8ZX Excision of Left Large Intestine, Via Natural or Artificial Opening Endoscopic, Diagnostic (ICD-10-PCS; 2021-02-01)
PROC: 0DBP8ZX Excision of Rectum, Via Natural or Artificial Opening Endoscopic, Diagnostic (ICD-10-PCS; 2021-02-01)
PROC: 0DBN8ZX Excision of Sigmoid Colon, Via Natural or Artificial Opening Endoscopic, Diagnostic (ICD-10-PCS; 2021-02-01)
PROC: 0DBF8ZX Excision of Right Large Intestine, Via Natural or Artificial Opening Endoscopic, Diagnostic (ICD-10-PCS; principal; 2021-02-01 10:45)
DX: Z12.11 Encounter for screening for malignant neoplasm of colon (principal); K63.5 Polyp of colon; K64.8 Other hemorrhoids; D12.7 Benign neoplasm of rectosigmoid junction; D12.4 Benign neoplasm of descending colon; D12.2 Benign neoplasm of ascending colon; Z20.822 Contact with and (suspected) exposure to COVID-19
CPT/HCPCS: 93005; 80048; 36415; 88305; 45385; 45380; U0003; J2704 ×2; J2370; J7120

== ENCOUNTER → 2021-02-23 | Day surgery (SDC) | payer OTHER ==
[~2021-02-23] MED LIST: BUPIVACAINE 0.25% PF 30 ML VIAL ONE; CEFAZOLIN SODIUM 1 GM/VIAL ONE; FENTANYL CITR 100 MCG/2 ML ONE; GLYCOPYRROLATE 0.2 MG/ML SYR ONE; LIDOCAINE 2% MPF 5 ML VIAL ONE; MIDAZOLAM HCL 2 MG/2 ML INJ ONE; dexAMETHasone 10 MG/ML VIAL ONE; propofoL 200 MG/20 ML VIAL IV ONE
--- NOTE | 2021-02-23 16:36 | RAD REPORT ---
EXAM DESCRIPTION: US - Breast Core BX w/US Guidance - 02/23/2021 10:56 amComing back to later CLINICAL HISTORY: N63.10 COMPARISON: Mammogram and ultrasound studies Feb 09 2021 TECHNIQUE: The patient presents for ultrasound-guided biopsy of a previously detailed right breast m ass. The ultrasound-guided core biopsy procedure, risks and alternatives were discussed with the patient i n detail. After answering all questions, both oral and written consent were obtained. Time out proced ure was performed. The patient had no contraindicated allergy or medication history. Preliminary imaging identified the right breast mass within the left thin layer of tissue between ski n and implant. The right breast was prepped and draped in the usual sterile fashion. From an inferior approach, skin and deeper tissues were anesthetized with 1% lidocaine. Under direct sonographic visu alization a 17 gauge introducer delete select needle was advanced and placed at the margin of the mas s. An 18 gauge Bard biopsy needle was advanced through the introducer needle. There were a total of 5 core biopsies obtained under direct sonographic guidance. The mass did appear to have distortion in contour supporting transit of the biopsy needle through the small mass. At the conclusion of the procedure a localization clip was placed under sonographic guidance. Post biopsy imaging showed no hematoma or measurable bleeding within the breast. Hemostasis was obtai jared at the skin site with a sterile bandage placed. Post procedure care and precaution instructions were given to the patient. IMPRESSION: 1. Ultrasound-guided core biopsy was performed of the 8 mm right breast mass. All obtain ed material was given to pathology for histologic assessment. 2. Post biopsy localization clip was placed under ultrasound guidance.
== END ==
LOC: DS 09:58
PROVIDERS: ATTEND Nurse Practitioner Family
DX: N63.10 Unspecified lump in the right breast, unspecified quadrant (principal)
CPT/HCPCS: 19083; 88305

== ENCOUNTER 2021-02-25 08:41 | Day surgery (SDC) | payer OTHER ==
[2021-02-25] MEDS ORDERED: Ringers Lactate 1,000 ML IV ONE (09:09)
--- NOTE | 2021-02-25 10:13 | P.OP ---
Preoperative diagnosis: Anal Mass noted on colonoscopy Postoperative diagnosis: Anal Mass noted on colonoscopy Primary procedure: Exam under anesthesia Anesthesia: GETA Estimated blood loss: none Specimen: none Findings: no anal mass noted, mild inflammation to anus Complications: None Transferred to: Recovery Room Condition: Good
[2021-02-25] MEDS ORDERED: KETOROLAC 30 MG/ML INJ ONE (10:37)
[2021-02-25 12:37] VITALS: BP 139/74; TEMP 97.8; O2SAT 96
--- NOTE | 2021-02-25 20:26 | OP ---
Date of Procedure: 02/25/2021 Surgeon: Dario Velasquez MD, Preoperative Diagnosis: Anal mass noted on colonoscopy. Postoperative Diagnosis: Anal mass noted on colonoscopy. Procedure Performed: Exam under anesthesia. Anesthesia: General endotracheal. Estimated Blood Loss: None. Complications: None. Specimen: None. Findings: No anal mass noted. There was simple mild inflammatory change to the perianal mucosa. Complications: None. Disposition: The patient transferred to recovery room in good condition. Procedure In Detail: After informed consent was obtained, the patient was brought to the operating r oom, prepped and draped in the usual sterile fashion. The patient was placed in the lithotomy positi on. A digital rectal examination was performed. Only small internal hemorrhoids were palpated. At this point, I sequentially dilated the anus using progressively larger anoscopes and performed an ano scopy of the area. There was only mild inflammatory change to the 5 o'clock position where the previ ous anal mass was noted. I did not notice any anal masses at this point and went well beyond into e rectal mucosa without any evidence of anal mass at this point. As such, I suspect she probably del ivered this polyp at some point between the colonoscopy and today. As there was no evidence of a darryl yp at this area, I palpated the area and found no thickening, no concerning findings. The mucosa onl y had a mild inflammatory appearance. There was no adenomatous change obvious to the area. As such, I suspect this was a benign hamartomatous lesion. At this point, the area was irrigated and inspect ed one last time. No hemostatic maneuvers required. I discontinued the procedure at this point. Th e patient tolerated the procedure well without evidence of complication and transferred to PACU in go od condition. All counts were correct at the end of the case. VALENCIA/MODL Voice ID: [id number] Report ID: [id number]
== END 2021-02-25 11:38 | disposition home or self-care (01) ==
LOC: OR 08:41
PROVIDERS: ATTEND Surgery
PROC: 0DJD8ZZ Inspection of Lower Intestinal Tract, Via Natural or Artificial Opening Endoscopic (ICD-10-PCS; principal; 2021-02-25 10:00)
DX: K62.9 Disease of anus and rectum, unspecified (principal); K64.8 Other hemorrhoids; Z20.822 Contact with and (suspected) exposure to COVID-19
CPT/HCPCS: 46600; U0003; J7120

== ENCOUNTER 2021-03-25 06:50 | Day surgery (SDC) | payer OTHER ==
[2021-03-23 09:30] LABS: Absolute Lymphocytes (CBC) 2.1 K/uL (0.7-4.9); Hematocrit 44.2 % (36.0-45.0); Lymphocytes % 33.6 % (15.3-44.8); RBC Red Blood Cell Count 4.63 M/uL (3.86-4.86)
[2021-03-23 09:47] LABS: Potassium 5.3 mmol/L (3.5-5.1)
[2021-03-25] MEDS ORDERED: CEFAZOLIN/SWI 1gm 1 GM/10 ML SYR ONE (07:29)
[2021-03-25] MEDS ORDERED: Ringers Lactate 1,000 ML IV ONE (07:29)
[2021-03-25] MEDS ORDERED: ACETAMINOPHEN 500 MG TAB PO ONE (08:50)
[2021-03-25] MEDS ORDERED: CELECOXIB 100 MG CAPSULE PO ONE (08:50)
[2021-03-25] MEDS ORDERED: MIDAZOLAM HCL 2 MG/2 ML INJ ONE (09:03)
[2021-03-25] MEDS ORDERED: propofoL 200 MG/20 ML VIAL IV ONE (09:03)
[2021-03-25] MEDS ORDERED: LIDOCAINE 1% MPF 5 ML VIAL ONE (09:04)
[2021-03-25] MEDS ORDERED: FENTANYL CITR 100 MCG/2 ML ONE (09:04)
[2021-03-25] MEDS ORDERED: CELECOXIB 100 MG CAPSULE ONE (09:12)
[2021-03-25] MEDS ORDERED: ACETAMINOPHEN 500 MG TAB ONE (09:12)
[2021-03-25] MEDS ORDERED: BUPIVACAINE 0.25% PF 30 ML VIAL ONE (09:14)
--- NOTE | 2021-03-25 09:31 | RAD REPORT ---
EXAM DESCRIPTION: US - Brst,Preop NL Wire Init w/Guid - 03/25/2021 8:36 am CLINICAL HISTORY: NDL LOC Right breast mass. COMPARISON: Breast Core BX w/US Guidance dated 02/23/2021 FINDINGS: Preoperative diagnosis: Right breast mass. Post operative diagnosis: Same. Conscious Sedation: None Fluoroscopy time: None Contrast used: None Estimated blood loss: Minimal The right breast was prepped and draped in the usual sterile fashion. 1% lidocaine was infiltrated in to the subcutaneous tissues for local anesthesia. Real time ultrasound scanning of the right breast a bart of interest demonstrated 9 mm hypoechoic lesion. Under ultrasound guidance, a Kopan's hookwire wa s placed into lesion. There were no complications. IMPRESSION: Successful ultrasound-guided right preoperative breast wire localization.
[2021-03-25] MEDS ORDERED: dexAMETHasone 10 MG/ML VIAL ONE (09:41)
[2021-03-25] MEDS ORDERED: KETOROLAC 30 MG/ML INJ ONE (09:42)
[2021-03-25] MEDS ORDERED: NS 0.9% VIAL 10 ML ONE (09:47)
[2021-03-25] MEDS ORDERED: EPHEDRINE SULF 50 MG/ML VIAL ONE (09:47)
[2021-03-25] MEDS ORDERED: ONDANSETRON 4 MG/2 ML VIAL ONE (09:47)
--- NOTE | 2021-03-25 09:47 | P.OP ---
Preoperative diagnosis: RIGHT Breast Mass Postoperative diagnosis: RIGHT Breast Mass Primary procedure: Excision of RIGHT Breast Mass / Lumpectomy Anesthesia: GETA + Local Estimated blood loss: <2cc Specimen: RIGHT Breast mass Findings: needle localized breast mass Complications: None Transferred to: Recovery Room Condition: Good
--- NOTE | 2021-03-25 10:17 | RAD REPORT ---
EXAM DESCRIPTION: US - Surgical Specimen - 03/25/2021 9:46 am CLINICAL HISTORY: SPEC Surgical specimen ultrasound COMPARISON: Brst,Preop NL Wire Init w/Guid dated 03/25/2021 FINDINGS: Surgical specimen was retrieved and underwent ultrasound assessment. The 9 mm hypoechoic m ass and yr are both seen within the specimen.
[2021-03-25 10:37] VITALS: BP 113/58; TEMP 98; O2SAT 95
--- NOTE | 2021-03-25 21:02 | OP ---
Date of Procedure: 03/25/2021 Surgeon: Dario Velasquez MD, Preoperative Diagnosis: Right breast mass. Postoperative Diagnosis: Right breast mass. Procedure Performed: An excision of right breast mass/lumpectomy. Anesthesia: General endotracheal plus local with 0.25% Marcaine. Estimated Blood Loss: Less than 2 cc. Specimen: Right breast mass. Findings: Needle localized right breast mass verified by ultrasound after removal. Complication: None. Disposition: The patient was transferred to recovery room in good condition. Procedure In Detail: After informed consent was obtained, patient was brought to needle localization this morning with the radiology department and was sent over for surgery. Just prior to surgery, I examined the needle into the right breast mass prior to induction of anesthesia and found it to be wi thin the specimen as well. At this point, the patient was prepped and draped in the usual sterile fa shion. After adequate anesthesia was achieved, I made a linear incision overlying the area where the right breast mass was needle localized at this point after appropriately anesthetizing the skin with 0.25% Marcaine. The 15 blade was used to cut through the skin quite easily. Dissection continued d own circumferentially using a combination of electrocautery and blunt dissection circumferentially ar ound the mass taking a rim of normal tissue. This was then sent off on the back table after being re moved. Marking sutures were placed short superior long lateral and the specimen passed off for patho logic examination. At this point, the wound was copiously irrigated and the specimen was verified to be intact via the ultrasound department with a needle in place. At this point, I irrigated the inci aravind once again and closed the deep dermal plane using interrupted 3-0 Vicryl suture and the skin was closed with 4-0 Monocryl in a running fashion Dermabond placed over top. The patient tolerated the procedure without complication and transferred to PACU in good condition. All counts were correct at the end of the case. TK/MODL Voice ID: [id number] Report ID: [id number]
== END 2021-03-25 11:05 | disposition home or self-care (01) ==
LOC: OR 06:50
PROVIDERS: ATTEND Surgery
PROC: 0HBT0ZX Excision of Right Breast, Open Approach, Diagnostic (ICD-10-PCS; 2021-03-25)
PROC: 0HBT0ZZ Excision of Right Breast, Open Approach (ICD-10-PCS; principal; 2021-03-25 09:30)
DX: N63.10 Unspecified lump in the right breast, unspecified quadrant (principal); K52.9 Noninfective gastroenteritis and colitis, unspecified; F17.200 Nicotine dependence, unspecified, uncomplicated
CPT/HCPCS: 85025; 80048; 36415; 88305; 76098; 19285; 19301; J2704; J3010; J1100; J0690; J7120; J2405; J2250

== ENCOUNTER 2022-01-03 06:30 | Day surgery (SDC) | payer OTHER ==
--- NOTE | 2021-12-30 10:32 | RAD REPORT ---
EXAM DESCRIPTION: Elissa Cardenas And Juan J (2 Views)12/30/2021 10:12 am CLINICAL HISTORY: Preop/hypertension COMPARISON: 2019 FINDINGS: The lungs are hyperaerated. Breast implants. Neurostimulator device is in place The lungs appear clear of acute infiltrate. The heart is normal size Cement has been placed into vertebral fractures IMPRESSION: COPD without visualization of an acute abnormality
[2021-12-30 11:03] LABS: Absolute Lymphocytes (CBC) 1.8 K/uL (0.7-4.9); Hematocrit 43.3 % (36.0-45.0); Lymphocytes % 33.5 % (15.3-44.8); RBC Red Blood Cell Count 4.64 M/uL (3.86-4.86)
[2021-12-30 11:08] LABS: Protime INR 1.02
[2021-12-30 11:22] LABS: Potassium 4.4 mmol/L (3.5-5.1)
[2022-01-03] MEDS ORDERED: HEPA 1000U/500MLS 2,000 UNIT/1,000 ML BAG IV ONE (06:33)
[2022-01-03] MEDS ORDERED: LIDOCAINE 1% 20 ML MDV ONE (06:33)
[2022-01-03] MEDS ORDERED: NA CHLORIDE 0.9% 500 ML ONE (06:42)
[2022-01-03] MEDS ORDERED: FENTANYL CITR 100 MCG/2 ML ONE (07:05)
[2022-01-03] MEDS ORDERED: MIDAZOLAM HCL 2 MG/2 ML INJ ONE ×2 (07:05→07:25)
[2022-01-03] MEDS ORDERED: ATROPINE SULF 1 MG/10 ML SYR IV ONE (07:06)
[2022-01-03] MEDS ORDERED: HEPARIN 5000 UNIT/ML 1 ML VIAL ONE (07:25)
[2022-01-03 09:11] VITALS: O2SAT 98
[2022-01-03 09:43] VITALS: BP 164/59
--- NOTE | 2022-01-03 19:13 | OP ---
Surgeon: Raulito Laird MD Driver: Ms. Lanny Lee. Admitted as an outpatient today for abdominal angiogram with runoff. Procedure In Detail: The patient was brought in as an outpatient to the microbiology laboratory manager. She is 76, has a history of right SFA stent claudication, abnormal arterial Doppler. In the microbiology laboratory manager, she was prepped and draped in the routine sterile fashion. Given Versed and fentanyl for sedation. A 6-Divehi carrington th introduced in the left common femoral artery using the Seldinger technique and 10 cc Xylocaine. A pigtail catheter was advanced above the renals. Abdominal angiogram with runoff showed a normal jefferson al, normal aorta, normal common iliac, normal common femoral artery. The SFA on the left was right. SFA on the right had a patent stent. She had diffuse disease below the knee bilaterally. There wer e no complications. Blood Loss: 5 mL. Anesthesia: Total conscious sedation was 30 minutes. Postoperative Diagnosis: Mild to moderate peripheral arterial disease, mostly below the knee, patent stent in the right SFA. Plan: Plan is for medical therapy. ELBERT/ZACK Voice ID: [id number] Report ID: [id number]
== END 2022-01-03 09:55 | disposition home or self-care (01) ==
LOC: CCL 06:30
DX: I70.213 Atherosclerosis of native arteries of extremities with intermittent claudication, bilateral legs (principal); I65.22 Occlusion and stenosis of left carotid artery; I10 Essential (primary) hypertension; E78.2 Mixed hyperlipidemia; I47.2 Ventricular tachycardia; J44.1 Chronic obstructive pulmonary disease with (acute) exacerbation; F41.1 Generalized anxiety disorder; G43.909 Migraine, unspecified, not intractable, without status migrainosus; Z95.820 Peripheral vascular angioplasty status with implants and grafts; Z87.891 Personal history of nicotine dependence; Z20.822 Contact with and (suspected) exposure to COVID-19
CPT/HCPCS: 93005; 85025; 80048; 36415; 85610; 85730; 71046; 36200; 75630; U0003; C1893; J2250 ×2; J3010; J7040; J1644

== ENCOUNTER 2022-09-01 10:45 | Emergency (ER) | payer OTHER ==
--- OUTSIDE RECORDS SUMMARY | 2022-09-01 10:50 | XMS REPORT | Continuity of Care Document ---
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 mg Lasix 40 mg No 1{table QD Lasix 40 t} mg ProAir HFA ProAir HFA No ProAir HFA 108 (90 108 (90 108 (90 Base) Base) Base) MCG/ACT MCG/ACT MCG/ACT Trelegy Trelegy 2021- No 1{puff} QD Trelegy Ellipta Ellipta 06-19 Ellipta 100-62.5-25 100-62.5-25 00:00 100-62.5-2 MCG/INH MCG/INH :00 5 MCG/INH Trelegy Trelegy 2021- No 1{puff} QD Trelegy Ellipta Ellipta 06-19 Ellipta 100-62.5-25 100-62.5-25 00:00 100-62.5-2 MCG/INH MCG/INH :00 5 MCG/INH Trelegy Trelegy 2- No 1{puff} QD Trelegy Ellipta Ellipta 06-19 Ellipta 100-62.5-25 100-62.5-25 00:00 100-62.5-2 MCG/INH MCG/INH :00 5 MCG/INH Trelegy Trelegy 2021- No 1{puff} QD Trelegy Ellipta Ellipta 06-19 Ellipta 100-62.5-25 100-62.5-25 00:00 100-62.5-2 MCG/INH MCG/INH :00 5 MCG/INH Trelegy Trelegy 2- No 1{puff} QD Trelegy Ellipta Ellipta 06-19 Ellipta 100-62.5-25 100-62.5-25 00:00 100-62.5-2 MCG/INH MCG/INH :00 5 MCG/INH Trelegy Trelegy 2021- No 1{puff} QD Trelegy Ellipta Ellipta 05-04 Ellipta 100-62.5-25 100-62.5-25 00:00 100-62.5-2 MCG/INH MCG/INH :00 5 MCG/INH Immunizations Ordered Immunization Filled Immunization Date Status Commen ts Source Name Name FLUZONE HIGH DOSE FLUZONE HIGH DOSE 2021-06-29 [facility] 09:[facility] FLUZONE HIGH DOSE FLUZONE HIGH DOSE 2021-06-29 [facility]pleted [facility] OVER 65 09:42:00 - [facility] FLUZONE HIGH DOSE FLUZONE HIGH DOSE 2021-06-29 [facility]pleted [facility] OVER 65 09:42:00 - [facility] FLUZONE HIGH DOSE FLUZONE HIGH DOSE 2021-06-29 [facility]pleted [facility] OVER 65 09:42:00 - [facility] FLUZONE HIGH DOSE FLUZONE HIGH DOSE 2021-06-29 [facility]pleted [facility] OVER [facility] OVER 65 09:42:00 - [facility] FLUZONE HIGH DOSE FLUZONE HIGH DOSE 2021-06-29 [facility]pleted [facility] OVER [facility] OVER 65 09:42:00 - [facility] FLUZONE HIGH DOSE FLUZONE HIGH DOSE 2021-06-29 [facility]pleted [facility] OVER [facility] OVER 65 09:42:00 - [facility] FLUZONE HIGH DOSE FLUZONE HIGH DOSE 2021-06-29 [facility]pleted [facility] OVER [facility] OVER 65 09:42:00 - [facility] FLUZONE HIGH DOSE FLUZONE HIGH DOSE 2021-06-29 Completed [facility] OVER [facility] OVER 65 09:42:00 - [facility] FLUZONE HIGH DOSE FLUZONE HIGH DOSE 2021-06-29 [facility]pleted [facility] OVER [facility] OVER 65 09:42:00 - [facility] FLUZONE HIGH DOSE FLUZONE HIGH DOSE 2021-06-29 Completed [facility] OVER [facility] OVER 65 09:42:00 - [facility] FLUZONE HIGH DOSE FLUZONE HIGH DOSE 2021-06-29 [facility]pleted [facility] OVER [facility] OVER 65 09:42:00 - [facility] FLUZONE HIGH DOSE FLUZONE HIGH DOSE 2021-06-29 [facility]pleted [facility] OVER [facility] OVER 65 09:42:00 - [facility] FLUZONE HIGH DOSE FLUZONE HIGH DOSE 2021-06-29 [facility]pleted [facility] OVER [facility] OVER 65 09:42:00 - [facility] COVID-19 Vaccine COVID-19 Vaccine 2020-12-23 [facility] 11:01:00 - [facility] COVID-19 Vaccine COVID-19 Vaccine 2020-12-23 [facility] 11:01:00 [facility] COVID-19 Vaccine COVID-19 Vaccine 2020-12-23 [facility] 11:01: [facility] COVID-19 Vaccine COVID-19 Vaccine 2020-12-23 [facility] 11:01:00 - [facility] COVID-19 Vaccine COVID-19 Vaccine 2020-12-23 [facility] ([place] 11:01:00 [facility] COVID-19 Vaccine COVID-19 Vaccine 2020-12-23 [facility] ([place] 11:01:00 - [facility] COVID-19 Vaccine COVID-19 Vaccine 2020-12-23 [facility] 11:01:00 [facility] COVID-19 Vaccine COVID-19 Vaccine 2020-12-23 [facility] 11:01:00 [facility] COVID-19 Vaccine COVID-19 Vaccine 2020-12-23 [facility] ([place] 11:01:00 [facility] COVID-19 Vaccine COVID-19 Vaccine 2020-12-23 [facility] ([place] 11:01:00 [facility] COVID-19 Vaccine COVID-19 Vaccine 2020-12-23 [facility] ([place] 11:01: [facility] COVID-19 Vaccine COVID-19 Vaccine 2020-12-23 [facility] ([place] 11:01:00 - [facility] COVID-19 Vaccine COVID-19 Vaccine 2020-12-23 [facility] ([place] 11:01:00 - [facility] COVID-19 Vaccine COVID-19 Vaccine 2020-12-23 [facility] ([place] 11:01:00 - [facility] COVID-19 Vaccine COVID-19 Vaccine 2020-12-23 [facility] 11:01:00 - [facility] FLUZONE HIGH DOSE FLUZONE HIGH DOSE 2020-06-30 [facility]pleted [facility] OVER 65 OVER 65 19:14:00 [facility] FLUZONE HIGH DOSE FLUZONE HIGH DOSE 2020-06-30 [facility]pleted [facility] OVER 65 OVER 65 19:14:00 [facility] FLUZONE HIGH DOSE FLUZONE HIGH DOSE 2020-06-30 [facility]pleted [facility] OVER 65 OVER 65 19:14:00 - [facility] FLUZONE HIGH DOSE FLUZONE HIGH DOSE 2020-06-30 [facility]pleted [facility] OVER 65 OVER 65 19:14:00 [facility] FLUZONE HIGH DOSE FLUZONE HIGH DOSE 2020-06-30 [facility]pleted [facility] OVER [facility] OVER 65 19:14:00 [facility] FLUZONE HIGH DOSE FLUZONE HIGH DOSE 2020-06-30 [facility]pleted [facility] OVER [facility] OVER 65 19:14:00 - [facility] FLUZONE HIGH DOSE FLUZONE HIGH DOSE 2020-06-30 [facility]pleted [facility] OVER 65 OVER 65 19:14:00 - [facility] FLUZONE HIGH DOSE FLUZONE HIGH DOSE 2020-06-30 [facility]pleted [facility] OVER 65 OVER 65 19:14:00 [facility] FLUZONE HIGH DOSE FLUZONE HIGH DOSE 2020-06-30 [facility]pleted [facility] OVER 65 19:14:00 [facility] FLUZONE HIGH DOSE FLUZONE HIGH DOSE 2020-06-30 [facility]pleted [facility] OVER 65 OVER 65 19:14:00 [facility] FLUZONE HIGH DOSE FLUZONE HIGH DOSE 2020-06-30 [facility]pleted [facility] OVER 65 OVER 65 19:14:00 - [facility] FLUZONE HIGH DOSE FLUZONE HIGH DOSE 2020-06-30 [facility]pleted [facility] OVER 65 OVER 65 19:14:00 - [facility] FLUZONE HIGH DOSE FLUZONE HIGH DOSE 2020-06-30 [facility]pleted [facility] OVER 65 OVER 65 19:14:00 [facility] FLUZONE HIGH DOSE FLUZONE HIGH DOSE 2020-06-30 [facility]pleted [facility] OVER 65 OVER 65 19:14:00 - [facility] FLUZONE HIGH DOSE FLUZONE HIGH DOSE 2020-06-30 [facility]pleted [facility] OVER 65 OVER 65 19:14:00 [facility] Td Td 2019-09-08 [facility]pleted [facility] 11:28:00 - [facility] Prevnar 13 Prevnar 13 2019-09-08 [facility]pleted [facility] -Pneumonia Vaccine -Pneumonia Vaccine 11:28:00 - [facility] Td Td 2019-09-08 [facility]pleted [facility] 11:28:00 - [facility] Prevnar 13 Prevnar 13 2019-09-08 [facility]pleted [facility] -Pneumonia Vaccine -Pneumonia Vaccine 11:28:00 - [facility] Td Td 2019-09-08 [facility]pleted [facility] 11:28:00 - [facility] Prevnar 13 Prevnar 13 2019-09-08 [facility]pleted [facility] -Pneumonia Vaccine -Pneumonia Vaccine 11:28:00 - [facility] Td Td 2019-09-08 [facility] 11:28:00 - [facility] Prevnar 13 Prevnar 13 2019-09-08 [facility]pleted [facility] -Pneumonia Vaccine -Pneumonia Vaccine 11:28:00 - [facility] Td Td 2019-09-08 [facility] 11:28:00 - [facility] Prevnar 13 Prevnar 13 2019-09-08 [facility]pleted [facility] -Pneumonia Vaccine -Pneumonia Vaccine 11:28:00 - [facility] Td Td 2019-09-08 [facility] 11:28:00 - [facility] Prevnar 13 Prevnar 13 2019-09-08 [facility]pleted [facility] -Pneumonia Vaccine -Pneumonia Vaccine 11:28:00 - [facility] Td Td 2019-09-08 [facility] 11:28:00 - [facility] Prevnar 13 Prevnar 13 2019-09-08 [facility]pleted [facility] -Pneumonia Vaccine -Pneumonia Vaccine 11:28:00 - [facility] Td Td 2019-09-08 [facility] 11:28:00 - [facility] Prevnar 13 Prevnar 13 2019-09-08 [facility]pleted [facility] -Pneumonia Vaccine -Pneumonia Vaccine 11:28:00 - [facility] Td Td 2019-09-08 [facility] 11:28:00 [facility] Prevnar 13 Prevnar 13 2019-09-08 [facility] -Pneumonia Vaccine -Pneumonia Vaccine 11:28:00 - [facility] Td Td 2019-09-08 [facility] 11:28:00 - [facility] Prevnar 13 Prevnar 13 2019-09-08 [facility]pleted [facility] -Pneumonia Vaccine -Pneumonia Vaccine 11:28:00 [facility] Td Td 2019-09-08 [facility] 11:28:00 - [facility] Prevnar 13 Prevnar 13 2019-09-08 [facility]pleted [facility] -Pneumonia Vaccine -Pneumonia Vaccine 11:28:00 - [facility] Td Td 2019-09-08 [facility] 11:28:00 - [facility] Prevnar 13 Prevnar 13 2019-09-08 [facility]pleted [facility] -Pneumonia Vaccine -Pneumonia Vaccine 11:28:00 - [facility] Td Td 2019-09-08 [facility] 11:28:00 - [facility] Prevnar 13 Prevnar 13 2019-09-08 [facility]pleted [facility] -Pneumonia Vaccine -Pneumonia Vaccine 11:28:00 - [facility] Td Td 2019-09-08 [facility] 11:28:00 - [facility] Prevnar 13 Prevnar 13 2019-09-08 [facility]pleted [facility] -Pneumonia Vaccine -Pneumonia Vaccine 11:28:00 [facility] Td Td 2019-09-08 [facility] 11:28:00 [facility] Prevnar 13 Prevnar 13 2019-09-08 [facility]pleted [facility] -Pneumonia Vaccine -Pneumonia Vaccine 11:28:00 [facility] FLUZONE HIGH DOSE FLUZONE HIGH DOSE 2019-09-08 Completed [facility] OVER 65 OVER 65 11:08:00 [facility] FLUZONE HIGH DOSE FLUZONE HIGH DOSE 2019-09-08 Completed [facility] OVER 65 OVER 65 11:08:00 - [facility] FLUZONE HIGH DOSE FLUZONE HIGH DOSE 2019-09-08 Completed [facility] OVER 65 OVER 65 11:08:00 - [facility] FLUZONE HIGH DOSE FLUZONE HIGH DOSE 2019-09-08 Completed [facility] OVER 65 OVER 65 11:08:00 - [facility] FLUZONE HIGH DOSE FLUZONE HIGH DOSE 2019-09-08 Completed [facility] OVER 65 OVER 65 11:08:00 - [facility] FLUZONE HIGH DOSE FLUZONE HIGH DOSE 2019-09-08 Completed [facility] OVER 65 OVER 65 11:08:00 - [facility] FLUZONE HIGH DOSE FLUZONE HIGH DOSE 2019-09-08 Completed [facility] OVER 65 OVER 65 11:08:00 - [facility] FLUZONE HIGH DOSE FLUZONE HIGH DOSE 2019-09-08 Completed [facility] OVER 65 OVER 65 11:08:00 - [facility] FLUZONE HIGH DOSE FLUZONE HIGH DOSE 2019-09-08 Completed [facility] OVER 65 OVER 65 11:08:00 - [facility] FLUZONE HIGH DOSE FLUZONE HIGH DOSE 2019-09-08 Completed [facility] OVER 65 OVER 65 11:08:00 - [facility] FLUZONE HIGH DOSE FLUZONE HIGH DOSE 2019-09-08 Completed [facility] OVER 65 OVER 65 11:08:00 - [facility] FLUZONE HIGH DOSE FLUZONE HIGH DOSE 2019-09-08 Completed [facility] OVER 65 OVER 65 11:08:00 - [facility] FLUZONE HIGH DOSE FLUZONE HIGH DOSE 2019-09-08 Completed [facility] OVER 65 OVER 65 11:08:00 - [facility] FLUZONE HIGH DOSE FLUZONE HIGH DOSE 2019-09-08 Completed [facility] OVER 65 OVER 65 11:08:00 - [facility] FLUZONE HIGH DOSE FLUZONE HIGH DOSE 2019-09-08 Completed [facility] OVER 65 OVER 65 11:08:00 - [facility] FLUZONE HIGH DOSE FLUZONE HIGH DOSE 2019-09-08 Completed [facility] OVER 65 OVER 65 00:00:00 - [facility] Prevnar 13 Prevnar 13 2019-09-08 Completed [facility] -Pneumonia Vaccine -Pneumonia Vaccine 00:00:00 [facility] Td Td 2019-09-08 [facility] 00:00:00 [facility] Pneumovax (PPSV23) Pneumovax (PPSV23) 2016-02-07 Completed [facility] 11:39:00 - [facility] Pneumovax (PPSV23) Pneumovax (PPSV23) 2016-02-07 [facility]pleted [facility] 11:39:00 [facility] Pneumovax (PPSV23) Pneumovax (PPSV23) 2016-02-07 [facility]pleted [facility] 11:39:00 [facility] Pneumovax (PPSV23) Pneumovax (PPSV23) 2016-02-07 [facility]pleted [facility] 11:39:00 - [facility] Pneumovax (PPSV23) Pneumovax (PPSV23) 2016-02-07 [facility]pleted [facility] 11:39:00 - [facility] Pneumovax (PPSV23) Pneumovax (PPSV23) 2016-02-07 [facility]pleted [facility] 11:39:00 [facility] Pneumovax (PPSV23) Pneumovax (PPSV23) 2016-02-07 [facility]pleted [facility] 11:39:00 - [facility] Pneumovax (PPSV23) Pneumovax (PPSV23) 2016-02-07 [facility]pleted [facility] 11:39:00 - [facility] Pneumovax (PPSV23) Pneumovax (PPSV23) 2016-02-07 [facility]pleted [facility] 11:39:00 [facility] Pneumovax (PPSV23) Pneumovax (PPSV23) 2016-02-07 [facility]pleted [facility] 11:39:00 [facility] Pneumovax (PPSV23) Pneumovax (PPSV23) 2016-02-07 [facility]pleted [facility] 11:39:00 [facility] Pneumovax (PPSV23) Pneumovax (PPSV23) 2016-02-07 [facility]pleted [facility] 11:39:00 [facility] Pneumovax (PPSV23) Pneumovax (PPSV23) 2016-02-07 [facility]pleted [facility] 11:39:00 - [facility] Pneumovax (PPSV23) Pneumovax (PPSV23) 2016-02-07 [facility]pleted [facility] 11:39:00 [facility] Pneumovax (PPSV23) Pneumovax (PPSV23) 2016-02-07 [facility]pleted [facility] 11:39:00 [facility] Vital Signs Vital Name Observation Time Observation Value Comments Source height 2022-05-09 11:40:00 66 [in_i] [facility] weight 2022-05-09 11:40:00 148.8 [lb_av] [facility] temperature 2022-05-09 11:40:00 97.8 [degF] [facility] bmi 2022-05-09 11:40:00 24.01 kg/m2 [facility] oximetry 2022-05-09 11:40:00 94 % [facility] respiratory rate 2022-05-09 11:40:00 16 /min [facility] blood pressure 2022-05-09 11:40:00 136 mm[Hg] [facility] systolic [facility] blood pressure 2022-05-09 11:40:00 72 mm[Hg] [facility] diastolic [facility] height 2022-04-17 08:20:00 66 [in_i] [facility] weight 2022-04-17 08:20:00 145 [lb_av] [facility] temperature 2022-04-17 08:20:00 97.8 [degF] [facility] bmi 2022-04-17 08:20:00 23.4 kg/m2 [facility] oximetry 2022-04-17 08:20:00 96 % [facility] respiratory rate 2022-04-17 08:20:00 18 /min [facility] blood pressure 2022-04-17 08:20:00 138 mm[Hg] [facility] - systolic [facility] blood pressure 2022-04-17 08:20:00 88 mm[Hg] [facility] - diastolic [facility] height 2022-04-03 10:00:00 66.5 [in_i] [facility] weight 2022-04-03 10:00:00 144.2 [lb_av] [facility] temperature 2022-04-03 10:00:00 97.4 [degF] [facility] bmi 2022-04-03 10:00:00 22.92 kg/m2 [facility] oximetry 2022-04-03 10:00:00 95 % [facility] respiratory rate 2022-04-03 10:00:00 18 /min [facility] blood pressure 2022-04-03 10:00:00 139 mm[Hg] [facility] - systolic [facility] blood pressure 2022-04-03 10:00:00 77 mm[Hg] [facility] - diastolic [facility] height 2022-03-24 10:20:00 66.5 [in_i] [facility] weight 2022-03-24 10:20:00 143.6 [lb_av] Common [facility] temperature 2022-03-24 10:20:00 97.3 [degF] [facility] bmi 2022-03-24 10:20:00 22.83 kg/m2 [facility] oximetry 2022-03-24 10:20:00 99 % [facility] respiratory rate 2022-03-24 10:20:00 18 /min [facility] blood pressure 2022-03-24 10:20:00 136 mm[Hg] [facility] - systolic [facility] blood pressure 2022-03-24 10:20:00 64 mm[Hg] [facility] height 2021-12-06 10:40:00 66.5 [in_i] [facility] weight 2021-12-06 10:40:00 139 [lb_av] [facility] temperature 2021-12-06 10:40:00 98.0 [degF] [facility] bmi 2021-12-06 10:40:00 22.1 kg/m2 [facility] oximetry 2021-12-06 10:40:00 94 % [facility] respiratory rate 2021-12-06 10:40:00 18 /min [facility] blood pressure 2021-12-06 10:40:00 136 mm[Hg] [facility] - systolic [facility] blood pressure 2021-12-06 10:40:00 88 mm[Hg] [facility] - diastolic [facility] height 2021-10-05 08:00:00 66.5 [in_i] [facility] 2021-10-05 08:00:00 141.0 [lb_av] [facility] temperature 2021-10-05 08:00:00 97.0 [degF] [facility] bmi 2021-10-05 08:00:00 22.41 kg/m2 [facility] oximetry 2021-10-05 08:00:00 90 % [facility] 2021-10-05 08:00:00 18 /min [facility] blood pressure 2021-10-05 08:00:00 110 mm[Hg] [facility] - systolic [facility] blood pressure 2021-10-05 08:00:00 68 mm[Hg] [facility] - diastolic [facility] height 2021-09-27 09:40:00 66.5 [in_i] [facility] weight 2021-09-27 09:40:00 141 [lb_av] [facility] temperature 2021-09-27 09:40:00 97.2 [degF] [facility] bmi 2021-09-27 09:40:00 22.41 kg/m2 [facility] oximetry 2021-09-27 09:40:00 95 % [facility] respiratory rate 2021-09-27 09:40:00 20 /min [facility] blood pressure 2021-09-27 09:40:00 132 mm[Hg] [facility] - systolic [facility] blood pressure 2021-09-27 09:40:00 86 mm[Hg] [facility] diastolic [facility] Systolic blood 2021-07-04 18:48:00 142 mm[Hg] [facility] Diastolic blood 2021-07-04 18:48:00 68 mm[Hg] [facility] Heart rate 2021-07-04 18:48:00 98 /min [facility] Body height 2021-07-04 18:48:00 172.7 cm [facility] Body weight 2021-07-04 18:48:00 65.772 kg [facility] BMI 2021-07-04 18:48:00 22.05 kg/m2 [facility] height 2021-06-29 08:40:00 66.5 [in_i] [facility] weight 2021-06-29 08:40:00 142 [lb_av] [facility] temperature 2021-06-29 08:40:00 98.4 [degF] [facility] bmi 2021-06-29 08:40:00 22.57 kg/m2 [facility] oximetry 2021-06-29 08:40:00 96 % [facility] respiratory rate 2021-06-29 08:40:00 20 /min [facility] blood pressure 2021-06-29 08:40:00 130 mm[Hg] [facility] - systolic [facility] blood pressure 2021-06-29 08:40:00 82 mm[Hg] [facility] - diastolic [facility] Procedures This patient has no known procedures. Encounters Start End Encounter Admission Attending Care Care Encounter Source Date/Time Date/Time Type Type Clinicians Facility Department ID 2022-04-13 Outpatient Stacy, STDOMINGOLC STLMLC [id number] Common 08:34:00 Loretta [facility] 2022-03-30 Outpatient Stacy, STDOMINGOLC STLMLC [id number] Common 08:14:01 Loretta [facility] 2021-11-02 Outpatient Telf[place], STDOMINGOLC STLMLC [id number] Common 14:26:11 Loretta [address] [facility] 2021-11-02 Outpatient [place], STLMLC STLMLC [id number] Common 13:50:55 Loretta [address] [facility] 2021-11-02 Outpatient [place], STDOMINGOLC STLMLC [id number] Common 12:42:21 Loretta [address] [facility] 2021-11-02 Outpatient [place], STLMLC STLMLC [id number] Common 12:41:41 Loretta [address] [facility] 2021-11-02 Outpatient [place], STLMLC STLMLC [id number] Common 12:15:05 Loretta [address] [facility] 2021-11-02 Outpatient [place], STDOMINGOLC STLMLC [id number] Common 10:59:19 Loretta [address] [facility] 2022-05-11 2022-05-11 (TEL) STLMLC STLMLC [id number] [facility] 00:00:00 00:00:00 [facility] 2022-05-09 2022-05-09 OFFICE STLC STLC [id number] [facility] 00:00:00 00:00:00 VISIT EST Spir it PT LEVEL 3 [facility] 2022-04-17 2022-04-17 OFFICE STLMLC STLMLC [id number] [facility]mon 00:00:00 00:00:00 VISIT [facility] PT LEVEL 3 [facility] 2022-04-03 2022-04-03 OFFICE STLMLC STLMLC [id number] [facility] 00:00:00 00:00:00 VISIT [facility] PT LEVEL 3 [facility] 2022-03-24 2022-03-24 OFFICE STLMLC STLMLC [id number] [facility] 00:00:00 00:00:00 VISIT EST Spir it PT LEVEL 3 [facility] 2022-02-03 2022-02-03 (TEL) STLMLC STLMLC [id number] [facility] 00:00:00 00:00:00 [facility] 2022-02-02 2022-02-02 (TEL) STLMLC STLMLC [id number] [facility] 00:00:00 00:00:00 [facility] 2022-01-09 2022-01-09 (TEL) STLMLC STLMLC [id number] [facility] 00:00:00 00:00:00 [facility] 2022-01-05 2022-01-05 (TEL) STLMLC STLMLC [id number] [facility] 00:00:00 00:00:00 [facility] 2021-12-06 2021-12-06 OFFICE STLMLC STLMLC [id number] [facility] 00:00:00 00:00:00 VISIT EST Spir it PT LEVEL 3 [facility] 2021-10-18 2021-10-18 (TEL) STLMLC STLMLC [id number] [facility] 00:00:00 00:00:00 [facility] 2021-10-05 2021-10-05 SUB ANNUAL STLMLC STLMLC [id number] Common 00:00:00 00:00:00 MCR [facility] VISIT [facility] 2021-09-27 2021-09-27 OFFICE STLMLC STLMLC [id number] Co mmon 00:00:00 00:00:00 VISIT [facility] ESTAB PT - CHI LEVEL 4 [facility] 2021-07-04 2021-07-04 [facility] [id number] [facility] 14:00:00 14:00:00 KATIE [facility] 2021-07-04 2021-07-04 Office LeonaRUST [id number] Univers 13:45:30 13:58:15 Visit [facility] [id number] [facility] [place] [id number] Serafin as Denis?Blea [phone] Me dical janine [address] [facility] 2021-06-29 2021-06-29 [facility] [id number] [facility]mon 00:00:00 00:00:00 VISIT David [place] PT - CHI LEVEL 4 [facility] 2021-06-23 2021-06-23 [facility] [id number] Univers 09:43:49 23:59:00 [facility]counter [facility] [id number] [facility] [place] [id number] Serafin as Denis?Blea [phone] Ar dical janine 808 [facility] Office [facility] 2021-06-23 2021-06-23 [facility] [id number] Univers 09:43:48 23:59:00 [facility]counter [facility] [id number] [facility] of [place] [id number] Serafin as Denis?Blea [id number] Me dical veenaey [address] [facility] 2021-06-23 2021-06[facility]23 [facility] [id number] Univers 09:28:00 10:30:45 Care Parminder, [facility] [id number] [facility]y of [place] [id number] Serafin as Denis?Blea [phone] Me dical janine [address] [facility] 2021-06-23 2021-06-23 Outpatient R [facility] [id number] Univers 09:20:00 09:20:00 ity of [facility] 2021-06-23 2021-06-23 Orders Doctor RICARDO [id number] Univers 00:00:00 00:00:00 Only Unassigned, ZINA [id number] [facility] [id number] Serafin as [id number] [address] 2021-05-27 2021-05-27 (TEL) STLMLC STLMLC [id number] Co mmon 00:00:00 00:00:00 [facility] 2021-03-30 2021-03-30 Outpatient STLMLC STLMLC [id number] Common 00:00:00 00:00:00 [facility] 2021-03-29 2021-03-29 Outpatient STLMLC STLMLC [id number] Common 00:00:00 00:00:00 [facility] 2021-03-09 2021-03-09 Outpatient STLMLC STLMLC [id number] Common 00:00:00 00:00:00 [facility] 2021-02-10 2021-02-10 Outpatient STLMLC STLMLC [id number] Common 00:00:00 00:00:00 [facility] 2021-01-20 2021-01-20 Outpatient STLMLC STLMLC [id number] Common 00:00:00 00:00:00 [facility] 2020-12-28 2020-12-28 Outpatient STLMLC STLMLC [id number] Common 00:00:00 00:00:00 [facility] 2020-12-23 2020-12-23 Outpatient STLMLC STLMLC [id number] Common 00:00:00 00:00:00 [facility] 2020-11-04 2020-11-04 Outpatient STLMLC STLMLC [id number] Common 00:00:00 00:00:00 [facility] 2020-10-11 2020-10-11 Outpatient STLMLC STLMLC [id number] Common 00:00:00 00:00:00 [facility] 2020-09-29 2020-09-29 Outpatient STLMLC STLMLC [id number] Common 00:00:00 00:00:00 [facility] 2020-08-12 2020-08-12 Outpatient STLMLC STLMLC [id number] Common 00:00:00 00:00:00 [facility] 2020-06-29 2020-06-29 Outpatient STLMLC STLMLC [id number] Common 00:00:00 00:00:00 [facility] 2020-06-15 2020-06-15 [facility] [id number] Common 10:20:00 10:20:00 [facility] [address] [facility] 2020-06-15 2020-06-15 [facility] [id number] Common 09:40:00 09:40:00 [facility] [address] [facility] 2020-04-29 2020-04-29 Outpatient Yoly WILDER [facility] [id number] Univers 09:45:00 09:45:00 [facility] 2020-04-22 2020-04-22 Outpatient Yoly WILDER [facility] [id number] Univers 08:30:00 08:30:00 [facility] 2020-04-12 2020-04-12 [facility] [id number] Common 08:40:00 08:40:00 t [facility] [address] [facility] 2020-01-15 2020-01-15 [facility] [id number] Common 10:00:00 10:00:00 [facility] [address] [facility] 2019-10-16 2019-10-16 [facility] [id number] Common 08:00:00 08:00:00 t [facility] [address] [facility] 2019-09-08 2019-09-08 [facility] [id number] Common 10:40:00 10:40:00 t [facility] 2019-07-01 2019-07-01 Outpatient Rox Valadez [id number] Common 09:00:00 09:00:00 t [facility] Results This patient has no known results.
[2022-09-01] MEDS ORDERED: HYDROCODONE/APAP 7.5/325 MG TAB ONE (12:27)
--- NOTE | 2022-09-01 13:02 | RAD REPORT ---
EXAM DESCRIPTION: RAD - Knee Left 3 View - 09/01/2022 12:42 pm CLINICAL HISTORY: Left knee pain FINDINGS: No fracture or dislocation is seen. The bones are osteoporotic. Small joint effusion If the patient continues to have symptoms to suggest an occult fracture/ligamentous or meniscal injur y then MRI would be recommended.
--- NOTE | 2022-09-01 13:30 | ER ---
Nurse's Notes [facility] Name: Lidia Wall Age: 76 yrs Sex: Female : 1945 Arrival Date: 09/01/2022 Time: 10:51 Bed DIS5 Private MD: Diagnosis: Contusion of left knee;Effusion of joint Presentation: 09/01 12:19 Chief complaint: tripped over the dog and landed directly on left knee 2 days ago, c/o hb sever left knee pain. Unable to bear weight. Denies other injuries. Coronavirus screen: At this time, the client does not indicate any symptoms associated with coronavirus-19. Ebola Screen: No symptoms or risks identified at this time. Initial Sepsis Screen: Does the patient meet any 2 criteria? No. Patient's initial sepsis screen is negative. Does the patient have a suspected source of infection? No. Patient's initial sepsis screen is negative. Risk Assessment: Do you want to hurt yourself or someone else? Patient reports no desire to harm self or others. Onset of symptoms was August 30, 2022. 12:19 Method Of Arrival: Wheelchair hb 12:19 Acuity: EMILY 4 hb Historical: - Allergies: 12:22 NKDA; hb - PMHx: 12:22 COPD; CVA; Hyperlipidemia; Hypertension; hb - Immunization history:: Adult Immunizations up to date. - Social history:: Smoking status: Patient reports the use of cigarette tobacco products. Vital Signs: 12:19 BP 145 / 76; Pulse 67; Resp 20; Temp 98(TE); Pulse Ox 98% on R/A; Weight 65.77 kg; hb Height 5 ft. 8 in. (172.72 cm); Pain 10/10; 12:19 Body Mass Index 22.05 (65.77 kg, 172.72 cm) hb ED Course: 10:51 Patient arrived in ED. [email or web address] 11:00 Tanja Pryor FNP-C is PHCP. snw 11:00 Brennon Phillips MD is Attending Physician. snw 12:22 Triage completed. hb 12:23 Arm band placed on. hb 12:43 Knee Left 3 View XRAY In Process Unspecified. EDMS 14:59 Knee immobilizer applied on left knee. mm9 Administered Medications: 12:28 Drug: [place] (HYDROcodone-acetaminophen) (7.5 mg-325 mg) 1 tabs Route: PO; hb Outcome: 13:30 Discharge ordered by MD. elizondo 15:08 Patient left the ED. hb Signatures: Dispatcher [employer] EDTanja Houston FNP-C RAZOR SHARPENER-Csnw Brittanie Arnold RN RN Sushma Abdi6 Elissa Jaffe mm9 Corrections: (The following items were deleted from the chart) 12:23 12:19 Pulse Ox 98% RA; Temp 98F Temporal; 65.77 kg; Height 5 ft. 8 in.; BMI: 22.0; Pain hb 10/10; hb 12:23 12:19 Social history: Smoking status: Patient denies any tobacco usage or history of. hbhb
--- NOTE | 2022-09-01 13:30 | EDPHYS ---
Physician Documentation [facility] Name: Lidia Wall Age: 76 yrs Sex: Female : 1945 Arrival Date: 09/01/2022 Time: 10:51 Bed DIS5 Private MD: ED Physician Brennon Phillips HPI: 09/01 12:28 This 76 yrs old Female presents to ER via Wheelchair with complaints of Fall Injury, snw Knee Pain. 12:28 Details of fall: The patient fell from an upright position, while walking. Onset: The snw symptoms/episode began/occurred suddenly, 2 day(s) ago, and became persistent. Associated injuries: The patient sustained left knee, contusion, decreased range of motion, painful injury, swelling. Severity of symptoms: At their worst the symptoms were moderate, in the emergency department the symptoms are unchanged. The patient has not experienced similar symptoms in the past. It is unknown whether or not the patient has recently seen a physician. pt tripped onto dog, no loc, no injury except to left knee. Historical: - Allergies: 12:22 NKDA; hb - PMHx: 12:22 COPD; CVA; Hyperlipidemia; Hypertension; hb - Immunization history:: Adult Immunizations up to date. - Social history:: Smoking status: Patient reports the use of cigarette tobacco products. ROS: 12:27 Constitutional: Negative for fever, chills, and weight loss, Eyes: Negative for injury, snw pain, redness, and discharge, ENT: Negative for injury, pain, and discharge, Neck: Negative for injury, pain, and swelling, Cardiovascular: Negative for chest pain, palpitations, and edema, Respiratory: Negative for shortness of breath, cough, wheezing, and pleuritic chest pain, Abdomen/GI: Negative for abdominal pain, nausea, vomiting, diarrhea, and constipation, Back: Negative for injury and pain, : Negative for injury, bleeding, discharge, and swelling, Skin: Negative for injury, rash, and discoloration, Neuro: Negative for headache, weakness, numbness, tingling, and seizure, Psych: Negative for depression, anxiety, suicide ideation, homicidal ideation, and hallucinations. 12:27 MS/extremity: Positive for injury or acute deformity, decreased range of motion, pain, swelling, tenderness, of the left knee. Exam: 12:25 Constitutional: This is a well developed, well nourished patient who is awake, alert, snw and in no acute distress. Head/Face: Normocephalic, atraumatic. Eyes: Pupils equal round and reactive to light, extra-ocular motions intact. Lids and lashes normal. Conjunctiva and sclera are non-icteric and not injected. Cornea within normal limits. Periorbital areas with no swelling, redness, or edema. ENT: Nares patent. No nasal discharge, no septal abnormalities noted. Tympanic membranes are normal and external auditory canals are clear. Oropharynx with no redness, swelling, or masses, exudates, or evidence of obstruction, uvula midline. Mucous membranes moist. Neck: Trachea midline, no thyromegaly or masses palpated, and no cervical lymphadenopathy. Supple, full range of motion without nuchal rigidity, or vertebral point tenderness. No Meningismus. Chest/axilla: Normal chest wall appearance and motion. Nontender with no deformity. No lesions are appreciated. Cardiovascular: Regular rate and rhythm with a normal S1 and S2. No gallops, murmurs, or rubs. Normal PMI, no JVD. No pulse deficits. 12:25 Abdomen/GI: Soft, non-tender, with normal bowel sounds. No distension or tympany. No guarding or rebound. No evidence of tenderness throughout. Back: No spinal tenderness. No costovertebral tenderness. Full range of motion. 12:25 Respiratory: the patient does not display signs of respiratory distress, Respirations: normal, Breath sounds: rhonchi, that are moderate, are heard diffusely. 12:25 Musculoskeletal/extremity: ROM: no acute changes, Circulation is intact in all extremities. Sensation intact. Joints: the left knee displays effusion, pain at rest, painful range of motion, swelling, tenderness, s/p fall 2 days ago. 12:25 Skin: Appearance: Color: dusky, injury, contusion(s), that are deep, of the left knee, edema, warmth, PAD, chronic wound to left lower leg, covered, no changes. Vital Signs: 12:19 BP 145 / 76; Pulse 67; Resp 20; Temp 98(TE); Pulse Ox 98% on R/A; Weight 65.77 kg; hb Height 5 ft. 8 in. (172.72 cm); Pain 10/10; 12:19 Body Mass Index 22.05 (65.77 kg, 172.72 cm) hb MDM: 12:21 Patient medically screened. snw 13:41 Data reviewed: vital signs, nurses notes. Data interpreted: Pulse oximetry: on room air snw is 98 %. Interpretation: normal. Counseling: I had a detailed discussion with the patient and/or guardian regarding: the historical points, exam findings, and any diagnostic results supporting the discharge/admit diagnosis, the presence of at least one elevated blood pressure reading (>120/80) during this emergency department visit, radiology results, the need for outpatient follow up, to return to the emergency department if symptoms worsen or persist or if there are any questions or concerns that arise at home. Special discussion: I have referred the patient to see his PCP for further evaluation of high blood pressure. Based on the history and exam findings, there is no indication for further emergent testing or inpatient evaluation. I discussed with the patient/guardian the need to see the orthopedic surgeon for further evaluation of the symptoms. I discussed with the patient/guardian the need to see the primary care provider for further evaluation of the symptoms. 09/01 12:25 Order name: Knee Left 3 View XRAY; Complete Time: 13:19 snw 09/01 13:20 Order name: Knee Immobilizer; Complete Time: 14:59 snw Administered Medications: 12:28 Drug: [place] (HYDROcodone-acetaminophen) (7.5 mg-325 mg) 1 tabs Route: PO; hb Disposition Summary: 09/01/22 13:30 Discharge Ordered Location: Home snw Condition: Stable snw Diagnosis - Contusion of left knee snw - Effusion of joint snw Followup: snw - With: Emergency Department - When: As needed - Reason: Worsening of condition Followup: snw - With: Private Physician - When: 2 - 3 days - Reason: Recheck today's complaints, Continuance of care, Re-evaluation by your physician Discharge Instructions: - Discharge Summary Sheet snw - Knee Effusion snw - How to Use a Knee Immobilizer snw - Acute Knee Pain, Adult snw Forms: - Medication Reconciliation Form snw - Thank You Letter snw - Antibiotic Education snw - Prescription Opioid Use snw Prescriptions: - Tramadol 50 mg Oral Tablet - take 1 tablet by ORAL route every 8 hours as needed; 12 tablet; Refills: 0, snw Product Selection Permitted Signatures: Dispatcher [employer] EDTanja Houston, FICTION WRITER-C FICTION WRITER-Csnw Brittanie Arnold, RN RN hb Corrections: (The following items were deleted from the chart) 12:23 12:19 Social history: Smoking status: Patient denies any tobacco usage or history of. hbhb 12:28 12:25 Skin: Appearance: Color: dusky, injury, contusion(s), that are deep, of the left snw knee, edema, warmth, PAD, snw
[2022-09-01 15:39] VITALS: BP 145/76; TEMP 98; O2SAT 98
== END 2022-09-01 15:08 | disposition home or self-care (01) ==
LOC: ER 10:45
DX: M25.462 Effusion, left knee (principal); I10 Essential (primary) hypertension; Z72.0 Tobacco use
CPT/HCPCS: 99283

== ENCOUNTER 2023-11-12 11:18 | Observation (INO) | payer OTHER ==
--- OUTSIDE RECORDS SUMMARY | 2023-11-12 11:25 | XMS REPORT | Continuity of Care Document ---
Author Name Unknown Address [address] [facility] [address] [place] [address] [facility] thconnect Address [address] [facility] [address] [place] [address] Support Name Relationship Address Phone Heather Mendez Child Unknown [phone] Jaycob Roy Personal Relationship [address] [place] [phone] Jaycob Roy Personal Relationship [address] [place] [phone] Care Team Providers Care Fur Stretcher Name Role Phone Pcp, Patient Does Not Have A Primary Care Physic casimiro Loretta Kumar Attending Clinician Unavailable Doctor Unassigned, [place] Attending Clinician U DONNA Gaytan Attending Clinician Unavailable Donna Feldman Attending Clinician [phone] Katie Delgadillo MD Attending Clinician [phone] KATIE DELGADILLO Attending Clinician UnavailMelissa Rojas Attending Clinician [phone] Nicole Salazar Attending Clinician [phone] Payers Payer Name Policy Type Policy Number Effective Date Expirati on Date Source FOR LIFE C1 [id number] 2004 00:00:00 [facility] MEDICARE NOV[place] [id number] 2012 00:00:00 [facility] FOR LIFE C1 [id number] 2004 00:00:00 [facility] MEDICARE NOV[place]AS MB [id number] 2012 00:00:00 [facility] FOR LIFE [id number] 2016 00:00:00 Problems Condition Name Condition Details Condition Category Status Onset Date Resolution Date Last Treatment Date Treating Clinician Comments Source No known active problems No known active problems Disease [facility] [id number] Non-healin g wound of left lower extremity Problem [facility] [id number] Pain in left lower leg Problem [facility] [id number] Internal derangemen t of left knee Problem [facility] [id number] Lumbago with sciatica, right side Problem [facility] [id number] Other chronic pain Problem [facility] [id number] Tobacco abuse counseling Problem [facility] [id number] Lumbago with sciatica, left side Problem [facility] Mixed anxiety and depressive disorder Depression with anxiety Problem [facility] 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 Problem [facility] Hyperlipid emia Hyperlipid emia Problem [facility] Status migrainosu s Migraine, unspecifie d, not intractabl e, with status migrainosu s Problem [facility] [id number] Intermitte nt urinary incontinen ce Problem [facility] [id number] Pure hyperchole sterolemia Problem [facility] History of breast implant History of breast implant Problem [facility] COPD - Chronic obstructiv e pulmonary disease COPD (chronic obstructiv e pulmonary disease) Problem [facility] [id number] Mixed stress and urge urinary incontinen ce Problem [facility] Peripheral vascular disease Peripheral vascular disease Problem [facility] [id number] Essential hypertensi on Problem [facility] [id number] Positive colorectal cancer screening using Cologuard test Problem Common [facility] [id number] Strain of right ring finger, initial encounter Problem [facility] [id number] Trigger finger, right ring finger Problem [facility] [id number] Irregular heart beat Problem [facility] Allergies, Adverse Reactions, Alerts Allergy Name Allergy Type Status Severity Reaction(s) Onset Date Inactive Date Treating Clinician Comments Source NO KNOWN ALLERGIE S Drug Class Active [facility] Social History Social Habit Start Date Stop Date Quantity Comments Source History SDOH Alcohol Frequency [facility] History SDOH [facility] SDOH Alcohol Binge [facility] Gender identity [facility] Sexual orientation U [facility] Sex Assigned At [facility] Exposure to SARS-CoV-2 (event) 2022-10-02 00:00:00 2022-10-12 08:31:00 Not sure [facility] Alcohol intake 2022-10-12 00:00:00 2022-10-12 00:00:00 0 /d [facility] Cigarettes smoked current (pack per day) - Reported 2022-09-27 00:00:00 2022-09-27 00:00:00 [facility] Tobacco use and exposure 2022-09-27 00:00:00 2022-09-27 00:00:00 Former smokeless tobacco user [facility] History of Social function 2022-09-27 00:00:00 2022-09-27 00:00:00 [facility] Alcohol Comment 2017-09-28 00:00:00 2017-09-28 00:00:00 Social Drinker - Approx. 5-6 beers weekly [facility] History of tobacco use 2016-01-29 00:00:00 User of smokeless tobacco [facility] Smoking Status Start Date Stop Date Source Smokes tobacco daily 2022-09-27 00:00:00 [facility] Medications Ordered Medication Name Filled Medication Name Start Date Stop Date Current Medication? Ordering Clinician Indication Dosage Frequency Signature (SIG) Comments Components Source Rosuvastati n Calcium 20 MG Rosuvastati n Calcium 20 MG 1-15 00:00: 00 No 1{table t} QD Rosuvastat in Calcium 20 MG Rosuvastati n Calcium 20 MG Rosuvastati n Calcium 20 MG 4-0 1-15 00:00: 00 No 1{table t} QD Rosuvastat in Calcium 20 MG Mupirocin 2 % Mupirocin 2 % 2021-0 04-03 00:00: 00 05-03 00:00 :00 No 1{appli cation_ to_affe cted_ar ea} BID Mupirocin 2 % Mupirocin 2 % Mupirocin 2 % 2021-0 04-03 00:00: 00 05-03 00:00 :00 No 1{appli cation_ to_affe cted_ar ea} BID Mupirocin 2 % Amoxicillin -Pot Clavulanate 875-125 MG Amoxicillin -Pot Clavulanate 875-125 MG 2-0 6-17 00:00: 00 No 1{table t} BID Amoxicilli n-Pot Clavulanat e 875-125 MG Amoxicillin -Pot Clavulanate 875-125 MG Amoxicillin -Pot Clavulanate 875-125 MG 2-0 6-17 00:00: 00 No 1{table t} BID Amoxicilli n-Pot Clavulanat e 875-125 MG Amoxicillin -Pot Clavulanate 875-125 MG Amoxicillin -Pot Clavulanate 875-125 MG 2-0 6-17 00:00: 00 No 1{table t} BID Amoxicilli n-Pot Clavulanat e 875-125 MG Oxybutynin Chloride 5 MG Oxybutynin Chloride 5 MG 1-0 8-20 00:00: 00 05-22 00:00 :00 No 1{table t} BID Oxybutynin Chloride 5 MG Oxybutynin Chloride 5 MG Oxybutynin Chloride 5 MG 1-0 8-20 00:00: 00 05-22 00:00 :00 No 1{table t} BID Oxybutynin Chloride 5 MG Oxybutynin Chloride 5 MG Oxybutynin Chloride 5 MG 1-0 8-20 00:00: 00 05-22 00:00 :00 No 1{table t} BID Oxybutynin Chloride 5 MG Oxybutynin Chloride 5 MG Oxybutynin Chloride 5 MG 1-0 8-20 00:00: 00 05-22 00:00 :00 No 1{table t} BID Oxybutynin Chloride 5 MG Oxybutynin Chloride 5 MG Oxybutynin Chloride 5 MG 1-0 8-20 00:00: 00 15 00:00 :00 No 1{table t} BID Oxybutynin Chloride 5 MG Oxybutynin Chloride 5 MG Oxybutynin Chloride 5 MG 1-0 8-20 00:00: 00 15 00:00 :00 No 1{table t} BID Oxybutynin Chloride 5 MG Oxybutynin Chloride 5 MG Oxybutynin Chloride 5 MG 1-0 8-20 00:00: 00 05-22 00:00 :00 No 1{table t} BID Oxybutynin Chloride 5 MG Oxybutynin Chloride 5 MG Oxybutynin Chloride 5 MG 1-0 8-20 00:00: 00 05-22 00:00 :00 No 1{table t} BID Oxybutynin Chloride 5 MG Oxybutynin Chloride 5 MG Oxybutynin Chloride 5 MG 1-0 8-20 00:00: 00 05-22 00:00 :00 No 1{table t} BID Oxybutynin Chloride 5 MG Oxybutynin Chloride 5 MG Oxybutynin Chloride 5 MG 1-0 8-20 00:00: 00 05-22 00:00 :00 No 1{table t} BID Oxybutynin Chloride 5 MG Oxybutynin Chloride 5 MG Oxybutynin Chloride 5 MG 1-0 8-20 00:00: 00 15 00:00 :00 No 1{table t} BID Oxybutynin Chloride 5 MG Oxybutynin Chloride 5 MG Oxybutynin Chloride 5 MG 1-0 8-20 00:00: 00 15 00:00 :00 No 1{table t} BID Oxybutynin Chloride 5 MG Oxybutynin Chloride 5 MG Oxybutynin Chloride 5 MG 1-0 8-20 00:00: 00 05-22 00:00 :00 No 1{table t} BID Oxybutynin Chloride 5 MG methylPREDN ISolone (MEDROL, [place],) 4 mg tablets 0 -16 00:00: 00 Yes [id number] 84mg Take 21 tablets by mouth SEE-INSTRU CTIONS. follow package directions [facility] methylPREDN ISolone (MEDROL, [place],) 4 mg tablets 0 -16 00:00: 00 Yes [id number] 84mg Take 21 tablets by mouth SEE-INSTRU CTIONS. follow package directions [facility] methylPREDN ISolone (MEDROL, [place],) 4 mg tablets 0 -16 00:00: 00 Yes [id number] 84mg Take 21 tablets by mouth SEE-INSTRU CTIONS. follow package directions [facility] methylPREDN ISolone (MEDROL, [place],) 4 mg tablets 0 -16 00:00: 00 Yes [id number] 84mg Take 21 tablets by mouth SEE-INSTRU CTIONS. follow package directions [facility] methylPREDN ISolone (MEDROL, [place],) 4 mg tablets 0 -16 00:00: 00 Yes [id number] 84mg Take 21 tablets by mouth SEE-INSTRU CTIONS. follow package directions [facility] methylPREDN ISolone (MEDROL, [place],) 4 mg tablets 0 -16 00:00: 00 Yes [id number] 84mg Take 21 tablets by mouth SEE-INSTRU CTIONS. follow package directions [facility] methylPREDN ISolone (MEDROL, [place],) 4 mg tablets 0 -16 00:00: 00 Yes [id number] 84mg Take 21 tablets by mouth SEE-INSTRU CTIONS. follow package directions [facility] methylPREDN ISolone (MEDROL, [place],) 4 mg tablets 0 -16 00:00: 00 Yes [id number] 84mg Take 21 tablets by mouth SEE-INSTRU CTIONS. follow package directions [facility] methylPREDN ISolone (MEDROL, [place],) 4 mg tablets 0 7-16 00:00: 00 Yes [id number] 84mg Take 21 tablets by mouth SEE-INSTRU CTIONS. follow package directions [facility] TRELEGY ELLIPTA 100-62.5-25 mcg DsDv 2020-0 04-14 00:00: 00 Yes [facility] simvastatin 20 mg tablet 2020-0 04-14 00:00: 00 Yes [facility] TRELEGY ELLIPTA 100-62.5-25 mcg DsDv 2020-0 04-14 00:00: 00 Yes [facility] simvastatin 20 mg tablet 2020-0 04-14 00:00: 00 Yes [facility] TRELEGY ELLIPTA 100-62.5-25 mcg DsDv 2020-0 04-14 00:00: 00 Yes [facility] simvastatin 20 mg tablet 2020-0 08 00:00: 00 Yes [facility] TRELEGY ELLIPTA 100-62.5-25 mcg DsDv 2020-0 04-14 00:00: 00 Yes [facility] simvastatin 20 mg tablet 2020-0 04-14 00:00: 00 Yes [facility] TRELEGY ELLIPTA 100-62.5-25 mcg DsDv 2020-0 04-14 00:00: 00 Yes [facility] simvastatin 20 mg tablet 2019-0 04-14 00:00: 00 Yes [facility] TRELEGY ELLIPTA 100-62.5-25 mcg DsDv 2020-0 04-14 00:00: 00 Yes [facility] simvastatin 20 mg tablet 2020-0 04-14 00:00: 00 Yes [facility] TRELEGY ELLIPTA 100-62.5-25 mcg DsDv 2020-0 04-14 00:00: 00 Yes [facility] simvastatin 20 mg tablet 2020-0 08 00:00: 00 Yes [facility] TRELEGY ELLIPTA 100-62.5-25 mcg DsDv 2020-0 04-14 00:00: 00 Yes [facility] simvastatin 20 mg tablet 2020-0 04-14 00:00: 00 Yes [facility] TRELEGY ELLIPTA 100-62.5-25 mcg DsDv 2020-0 04-14 00:00: 00 Yes [facility] simvastatin 20 mg tablet 08 00:00: 00 Yes [facility] hydroCHLORO thiazide (MICROZIDE) 12.5 mg capsule 04-02 14:24: 40 Yes 12.5mg Take 12.5 mg by mouth daily. [facility] topiramate 50 mg tablet 04-02 14:24: 40 Yes 50mg Take 50 mg by mouth 2 (two) times daily. [facility] lisinopril 20 mg tablet 04-02 14:24: 40 Yes 20mg Take 20 mg by mouth daily. [facility] albuterol 0.63 mg/3 mL nebulizer solution 04-02 14:24: 40 Yes 1{ampul e} Use 1 Ampule as directed every 6 (six) hours as needed for Wheezing. [facility] hydroCHLORO thiazide (MICROZIDE) 12.5 mg capsule 04-02 14:24: 40 Yes 12.5mg Take 12.5 mg by mouth daily. [facility] topiramate 50 mg tablet 04-02 14:24: 40 Yes 50mg Take 50 mg by mouth 2 (two) times daily. [facility] lisinopril 20 mg tablet 04-02 14:24: 40 Yes 20mg Take 20 mg by mouth daily. [facility] albuterol 0.63 mg/3 mL nebulizer solution 04-02 14:24: 40 Yes 1{ampul e} Use 1 Ampule as directed every 6 (six) hours as needed for Wheezing. [facility] hydroCHLORO thiazide (MICROZIDE) 12.5 mg capsule 04-02 14:24: 40 Yes 12.5mg Take 12.5 mg by mouth daily. [facility] topiramate 50 mg tablet 04-02 14:24: 40 Yes 50mg Take 50 mg by mouth 2 (two) times daily. [facility] lisinopril 20 mg tablet 04-02 14:24: 40 Yes 20mg Take 20 mg by mouth daily. [facility] albuterol 0.63 mg/3 mL nebulizer solution 04-02 14:24: 40 Yes 1{ampul e} Use 1 Ampule as directed every 6 (six) hours as needed for Wheezing. [facility] hydroCHLORO thiazide (MICROZIDE) 12.5 mg capsule 04-02 14:24: 40 Yes 12.5mg Take 12.5 mg by mouth daily. [facility] topiramate 50 mg tablet 04-02 14:24: 40 Yes 50mg Take 50 mg by mouth 2 (two) times daily. [facility] lisinopril 20 mg tablet 04-02 14:24: 40 Yes 20mg Take 20 mg by mouth daily. [facility] albuterol 0.63 mg/3 mL nebulizer solution 04-02 14:24: 40 Yes 1{ampul e} Use 1 Ampule as directed every 6 (six) hours as needed for Wheezing. [facility] hydroCHLORO thiazide (MICROZIDE) 12.5 mg capsule 04-02 14:24: 40 Yes 12.5mg Take 12.5 mg by mouth daily. [facility] topiramate 50 mg tablet 04-02 14:24: 40 Yes 50mg Take 50 mg by mouth 2 (two) times daily. [facility] lisinopril 20 mg tablet 04-02 14:24: 40 Yes 20mg Take 20 mg by mouth daily. [facility] albuterol 0.63 mg/3 mL nebulizer solution 04-02 14:24: 40 Yes 1{ampul e} Use 1 Ampule as directed every 6 (six) hours as needed for Wheezing. [facility] hydroCHLORO thiazide (MICROZIDE) 12.5 mg capsule 04-02 14:24: 40 Yes 12.5mg Take 12.5 mg by mouth daily. [facility] topiramate 50 mg tablet 04-02 14:24: 40 Yes 50mg Take 50 mg by mouth 2 (two) times daily. [facility] lisinopril 20 mg tablet 04-02 14:24: 40 Yes 20mg Take 20 mg by mouth daily. [facility] albuterol 0.63 mg/3 mL nebulizer solution 04-02 14:24: 40 Yes 1{ampul e} Use 1 Ampule as directed every 6 (six) hours as needed for Wheezing. [facility] hydroCHLORO thiazide (MICROZIDE) 12.5 mg capsule 04-02 14:24: 40 Yes 12.5mg Take 12.5 mg by mouth daily. [facility] topiramate 50 mg tablet 04-02 14:24: 40 Yes 50mg Take 50 mg by mouth 2 (two) times daily. [facility] lisinopril 20 mg tablet 04-02 14:24: 40 Yes 20mg Take 20 mg by mouth daily. [facility] albuterol 0.63 mg/3 mL nebulizer solution 04-02 14:24: 40 Yes 1{ampul e} Use 1 Ampule as directed every 6 (six) hours as needed for Wheezing. [facility] hydroCHLORO thiazide (MICROZIDE) 12.5 mg capsule 04-02 14:24: 40 Yes 12.5mg Take 12.5 mg by mouth daily. [facility] topiramate 50 mg tablet 04-02 14:24: 40 Yes 50mg Take 50 mg by mouth 2 (two) times daily. [facility] lisinopril 20 mg tablet 04-02 14:24: 40 Yes 20mg Take 20 mg by mouth daily. [facility] albuterol 0.63 mg/3 mL nebulizer solution 04-02 14:24: 40 Yes 1{ampul e} Use 1 Ampule as directed every 6 (six) hours as needed for Wheezing. [facility] hydroCHLORO thiazide (MICROZIDE) 12.5 mg capsule 04-02 14:24: 40 Yes 12.5mg Take 12.5 mg by mouth daily. [facility] topiramate 50 mg tablet 04-02 14:24: 40 Yes 50mg Take 50 mg by mouth 2 (two) times daily. [facility] lisinopril 20 mg tablet 04-02 14:24: 40 Yes 20mg Take 20 mg by mouth daily. [facility] albuterol 0.63 mg/3 mL nebulizer solution 04-02 14:24: 40 Yes 1{ampul e} Use 1 Ampule as directed every 6 (six) hours as needed for Wheezing. [facility] Lisinopril Lisinopril 01-03 00:00: 00 Yes Loretta Kumar 1 tablet [facility] Lisinopril 20 MG Lisinopril 20 MG 01-03 00:00: 00 No 1{table t} QD Lisinopril 20 MG Lisinopril 20 MG Lisinopril 20 MG 01-03 00:00: 00 No 1{table t} QD Lisinopril 20 MG Lisinopril 20 MG Lisinopril 20 MG 01-03 00:00: 00 No 1{table t} QD Lisinopril 20 MG Lisinopril 20 MG Lisinopril 20 MG 01-03 00:00: 00 No 1{table t} QD Lisinopril 20 MG Lisinopril 20 MG Lisinopril 20 MG 01-03 00:00: 00 No 1{table t} QD Lisinopril 20 MG Lisinopril 20 MG Lisinopril 20 MG 01-03 00:00: 00 No 1{table t} QD Lisinopril 20 MG Lisinopril 20 MG Lisinopril 20 MG 01-03 00:00: 00 No 1{table t} QD Lisinopril 20 MG Lisinopril 20 MG Lisinopril 20 MG 01-03 00:00: 00 No 1{table t} QD Lisinopril 20 MG Lisinopril 20 MG Lisinopril 20 MG 01-03 00:00: 00 No 1{table t} QD Lisinopril 20 MG Lisinopril 20 MG Lisinopril 20 MG 01-03 00:00: 00 No 1{table t} QD Lisinopril 20 MG Lisinopril 20 MG Lisinopril 20 MG 01-03 00:00: 00 No 1{table t} QD Lisinopril 20 MG Lisinopril 20 MG Lisinopril 20 MG 01-03 00:00: 00 No 1{table t} QD Lisinopril 20 MG Lisinopril 20 MG Lisinopril 20 MG 01-03 00:00: 00 No 1{table t} QD Lisinopril 20 MG Plavix Plavix 12-20 00:00: 00 Yes Loretta Kumar 1 tablet [facility] Plavix 75 MG Plavix 75 MG 12-20 00:00: 00 No 1{table t} QD Plavix 75 MG Plavix 75 MG Plavix 75 MG 12-20 00:00: 00 No 1{table t} QD Plavix 75 MG Plavix 75 MG Plavix 75 MG 12-20 00:00: 00 No 1{table t} QD Plavix 75 MG Plavix 75 MG Plavix 75 MG 12-20 00:00: 00 No 1{table t} QD Plavix 75 MG Plavix 75 MG Plavix 75 MG 12-20 00:00: 00 No 1{table t} QD Plavix 75 MG Plavix 75 MG Plavix 75 MG 12-20 00:00: 00 No 1{table t} QD Plavix 75 MG Plavix 75 MG Plavix 75 MG 12-20 00:00: 00 No 1{table t} QD Plavix 75 MG Plavix 75 MG Plavix 75 MG 12-20 00:00: 00 No 1{table t} QD Plavix 75 MG Plavix 75 MG Plavix 75 MG 12-20 00:00: 00 No 1{table t} QD Plavix 75 MG Plavix 75 MG Plavix 75 MG 12-20 00:00: 00 No 1{table t} QD Plavix 75 MG Plavix 75 MG Plavix 75 MG 12-20 00:00: 00 No 1{table t} QD Plavix 75 MG Plavix 75 MG Plavix 75 MG 12-20 00:00: 00 No 1{table t} QD Plavix 75 MG Plavix 75 MG Plavix 75 MG 3-15 00:00: 00 No 1{table t} QD Plavix 75 MG CRESTOR 10 mg tablet 05-31 00:00: 00 Yes 10mg Take 10 mg by mouth at bedtime. [facility] CRESTOR 10 mg tablet 05-31 00:00: 00 Yes 10mg Take 10 mg by mouth at bedtime. [facility] CRESTOR 10 mg tablet 05-31 00:00: 00 Yes 10mg Take 10 mg by mouth at bedtime. [facility] CRESTOR 10 mg tablet 05-31 00:00: 00 Yes 10mg Take 10 mg by mouth at bedtime. [facility] CRESTOR 10 mg tablet 05-31 00:00: 00 Yes 10mg Take 10 mg by mouth at bedtime. [facility] CRESTOR 10 mg tablet 05-31 00:00: 00 Yes 10mg Take 10 mg by mouth at bedtime. [facility] CRESTOR 10 mg tablet 05-31 00:00: 00 Yes 10mg Take 10 mg by mouth at bedtime. [facility] CRESTOR 10 mg tablet 05-31 00:00: 00 Yes 10mg Take 10 mg by mouth at bedtime. [facility] CRESTOR 10 mg tablet 05-31 00:00: 00 Yes 10mg Take 10 mg by mouth at bedtime. [facility] paroxetine CR (PAXIL CR) 25 mg 24 hr tablet 04-29 00:00: 00 Yes 25mg Take 25 mg by mouth daily. [facility] clopidogrel (PLAVIX) 75 mg tablet 04-29 00:00: 00 Yes 75mg Take 75 mg by mouth daily. [facility] SYMBICORT 160-4.5 mcg/actuati on inhaler 04-29 00:00: 00 Yes 2{puff} Inhale 2 Puffs daily. [facility] paroxetine CR (PAXIL CR) 25 mg 24 hr tablet 04-29 00:00: 00 Yes 25mg Take 25 mg by mouth daily. [facility] clopidogrel (PLAVIX) 75 mg tablet 04-29 00:00: 00 Yes 75mg Take 75 mg by mouth daily. [facility] SYMBICORT 160-4.5 mcg/actuati on inhaler 04-29 00:00: 00 Yes 2{puff} Inhale 2 Puffs daily. [facility] paroxetine CR (PAXIL CR) 25 mg 24 hr tablet 04-29 00:00: 00 Yes 25mg Take 25 mg by mouth daily. [facility] clopidogrel (PLAVIX) 75 mg tablet 04-29 00:00: 00 Yes 75mg Take 75 mg by mouth daily. [facility] SYMBICORT 160-4.5 mcg/actuati on inhaler 04-29 00:00: 00 Yes 2{puff} Inhale 2 Puffs daily. [facility] paroxetine CR (PAXIL CR) 25 mg 24 hr tablet 04-29 00:00: 00 Yes 25mg Take 25 mg by mouth daily. [facility] clopidogrel (PLAVIX) 75 mg tablet 04-29 00:00: 00 Yes 75mg Take 75 mg by mouth daily. [facility] SYMBICORT 160-4.5 mcg/actuati on inhaler 04-29 00:00: 00 Yes 2{puff} Inhale 2 Puffs daily. [facility] paroxetine CR (PAXIL CR) 25 mg 24 hr tablet 04-29 00:00: 00 Yes 25mg Take 25 mg by mouth daily. [facility] clopidogrel (PLAVIX) 75 mg tablet 04-29 00:00: 00 Yes 75mg Take 75 mg by mouth daily. [facility] SYMBICORT 160-4.5 mcg/actuati on inhaler 04-29 00:00: 00 Yes 2{puff} Inhale 2 Puffs daily. [facility] paroxetine CR (PAXIL CR) 25 mg 24 hr tablet 04-29 00:00: 00 Yes 25mg Take 25 mg by mouth daily. [facility] clopidogrel (PLAVIX) 75 mg tablet 04-29 00:00: 00 Yes 75mg Take 75 mg by mouth daily. [facility] SYMBICORT 160-4.5 mcg/actuati on inhaler 04-29 00:00: 00 Yes 2{puff} Inhale 2 Puffs daily. [facility] paroxetine CR (PAXIL CR) 25 mg 24 hr tablet 04-29 00:00: 00 Yes 25mg Take 25 mg by mouth daily. [facility] clopidogrel (PLAVIX) 75 mg tablet 04-29 00:00: 00 Yes 75mg Take 75 mg by mouth daily. [facility] SYMBICORT 160-4.5 mcg/actuati on inhaler 04-29 00:00: 00 Yes 2{puff} Inhale 2 Puffs daily. [facility] paroxetine CR (PAXIL CR) 25 mg 24 hr tablet 04-29 00:00: 00 Yes 25mg Take 25 mg by mouth daily. [facility] clopidogrel (PLAVIX) 75 mg tablet 04-29 00:00: 00 Yes 75mg Take 75 mg by mouth daily. [facility] SYMBICORT 160-4.5 mcg/actuati on inhaler 04-29 00:00: 00 Yes 2{puff} Inhale 2 Puffs daily. [facility] paroxetine CR (PAXIL CR) 25 mg 24 hr tablet 04-29 00:00: 00 Yes 25mg Take 25 mg by mouth daily. [facility] clopidogrel (PLAVIX) 75 mg tablet 04-29 00:00: 00 Yes 75mg Take 75 mg by mouth daily. [facility] SYMBICORT 160-4.5 mcg/actuati on inhaler 04-29 00:00: 00 Yes 2{puff} Inhale 2 Puffs daily. [facility] ProAir HFA ProAir HFA Yes Loretta Fillmore 2 puffs as needed [facility] Simvastatin Simvastatin Yes Loretta Fillmore 1 tablet in the evening [facility] PARoxetine HCl ER PARoxetine HCl ER Yes Loretta Fillmore 1 tablet in the morning [facility] Lasix Lasix Yes Loretta Fillmore 1 tablet [facility] Trelegy Ellipta Trelegy Ellipta Yes Loretta Fillmore 1 puff [facility] BuPROPion HCl ER (XL) BuPROPion HCl ER (XL) Yes Loretta Fillmore 1 tab [facility] Fluticasone Propionate Fluticasone Propionate Yes Loretta Fillmore 1 spray in each nostril [facility] PARoxetine HCl ER 25 MG PARoxetine HCl ER 25 MG No PARoxetine HCl ER 25 MG Simvastatin 20 mg Simvastatin 20 mg No 1{table t_in e_eveni ng} QD Simvastati n 20 mg ProAir HFA 90MCG ProAir HFA 90MCG No 2{puffs _as_nee ded} ProAir HFA 90MCG Trelegy Ellipta 100-62.5-25 MCG/INH Trelegy Ellipta 100-62.5-25 MCG/INH No 1{puff} QD Trelegy Ellipta 100-62.5-2 5 MCG/INH Vitamin C Vitamin C No Vitamin C Lasix 40 mg Lasix 40 mg No 1{table t} QD Lasix 40 mg Fluticasone Propionate 50 MCG/ACT Fluticasone Propionate 50 MCG/ACT No 1{spray _in_eac h_nostr il} QD Fluticason e Propionate 50 MCG/ACT PARoxetine HCl ER 25 MG PARoxetine HCl ER 25 MG No PARoxetine HCl ER 25 MG Lasix 40 mg Lasix 40 mg No 1{table t} QD Lasix 40 mg Metoprolol Tartrate 50 MG Metoprolol Tartrate 50 MG No 1{table t_with_ food} BID Metoprolol Tartrate 50 MG Vitamin C Vitamin C No Vitamin C ProAir HFA 90MCG ProAir HFA 90MCG No 2{puffs _as_nee ded} ProAir HFA 90MCG Simvastatin 20 mg Simvastatin 20 mg No 1{table t_in_ e_eveni ng} QD Simvastati n 20 mg Fluticasone Propionate 50 MCG/ACT Fluticasone Propionate 50 MCG/ACT No 1{spray _in_eac h_nostr il} QD Fluticason e Propionate 50 MCG/ACT buPROPion HCl ER (XL) 150 MG buPROPion HCl ER (XL) 150 MG No buPROPion HCl ER (XL) 150 MG ProAir HFA 108 (90 Base) MCG/ACT ProAir HFA 108 (90 Base) MCG/ACT No ProAir HFA 108 (90 Base) MCG/ACT Simvastatin 20 mg Simvastatin 20 mg No 1{table t_in_th e_eveni ng} QD Simvastati n 20 mg Fluticasone Propionate 50 MCG/ACT Fluticasone Propionate 50 MCG/ACT No 1{spray _in_eac h_nostr il} QD Fluticason e Propionate 50 MCG/ACT PARoxetine HCl ER 25 MG PARoxetine HCl ER 25 MG No PARoxetine HCl ER 25 MG ProAir HFA 90MCG ProAir HFA 90MCG No 2{puffs _as_nee ded} ProAir HFA 90MCG Vitamin C Vitamin C No Vitamin C Lasix 40 mg Lasix 40 mg No 1{table t} QD Lasix 40 mg Metoprolol Tartrate 50 MG Metoprolol Tartrate 50 MG No 1{table t_with_ food} BID Metoprolol Tartrate 50 MG ProAir HFA 108 (90 Base) MCG/ACT ProAir HFA 108 (90 Base) MCG/ACT No ProAir HFA 108 (90 Base) MCG/ACT buPROPion HCl ER (XL) 150 MG buPROPion HCl ER (XL) 150 MG No buPROPion HCl ER (XL) 150 MG Simvastatin 20 mg Simvastatin 20 mg No 1{table t_in e_eveni ng} QD Simvastati n 20 mg Fluticasone Propionate 50 MCG/ACT Fluticasone Propionate 50 MCG/ACT No 1{spray _in_eac h_nostr il} QD Fluticason e Propionate 50 MCG/ACT PARoxetine HCl ER 25 MG PARoxetine HCl ER 25 MG No PARoxetine HCl ER 25 MG ProAir HFA 90MCG ProAir HFA 90MCG No 2{puffs _as_nee ded} ProAir HFA 90MCG Vitamin C Vitamin C No Vitamin C buPROPion HCl ER (XL) 150 MG buPROPion HCl ER (XL) 150 MG No buPROPion HCl ER (XL) 150 MG Lasix 40 mg Lasix 40 mg No 1{table t} QD Lasix 40 mg ProAir HFA 108 (90 Base) MCG/ACT ProAir HFA 108 (90 Base) MCG/ACT No ProAir HFA 108 (90 Base) MCG/ACT Metoprolol Tartrate 50 MG Metoprolol Tartrate 50 MG No 1{table t_with_ food} BID Metoprolol Tartrate 50 MG Metoprolol Tartrate 50 MG Metoprolol Tartrate 50 MG No 1{table t_with_ food} BID Metoprolol Tartrate 50 MG Simvastatin 20 mg Simvastatin 20 mg No 1{table t_in e_eveni ng} QD Simvastati n 20 mg buPROPion HCl ER (XL) 150 MG buPROPion HCl ER (XL) 150 MG No buPROPion HCl ER (XL) 150 MG Vitamin C Vitamin C No Vitamin C ProAir HFA 108 (90 Base) MCG/ACT ProAir HFA 108 (90 Base) MCG/ACT No ProAir HFA 108 (90 Base) MCG/ACT Fluticasone Propionate 50 MCG/ACT Fluticasone Propionate 50 MCG/ACT No 1{spray _in_eac h_nostr il} QD Fluticason e Propionate 50 MCG/ACT PARoxetine HCl ER 25 MG PARoxetine HCl ER 25 MG No PARoxetine HCl ER 25 MG ProAir HFA 90MCG ProAir HFA 90MCG No 2{puffs _as_nee ded} ProAir HFA 90MCG Lasix 40 mg Lasix 40 mg No 1{table t} QD Lasix 40 mg Metoprolol Tartrate 50 MG Metoprolol Tartrate 50 MG No 1{table t_with_ food} BID Metoprolol Tartrate 50 MG Simvastatin 20 mg Simvastatin 20 mg No 1{table t_in e_eveni ng} QD Simvastati n 20 mg buPROPion HCl ER (XL) 150 MG buPROPion HCl ER (XL) 150 MG No buPROPion HCl ER (XL) 150 MG Vitamin C Vitamin C No Vitamin C ProAir HFA 108 (90 Base) MCG/ACT ProAir HFA 108 (90 Base) MCG/ACT No ProAir HFA 108 (90 Base) MCG/ACT Fluticasone Propionate 50 MCG/ACT Fluticasone Propionate 50 MCG/ACT No 1{spray _in_eac h_nostr il} QD Fluticason e Propionate 50 MCG/ACT PARoxetine HCl ER 25 MG PARoxetine HCl ER 25 MG No PARoxetine HCl ER 25 MG ProAir HFA 90MCG ProAir HFA 90MCG No 2{puffs _as_nee ded} ProAir HFA 90MCG Lasix 40 mg Lasix 40 mg No 1{table t} QD Lasix 40 mg buPROPion HCl ER (XL) 150 MG buPROPion HCl ER (XL) 150 MG No buPROPion HCl ER (XL) 150 MG Vitamin C Vitamin C No Vitamin C ProAir HFA 108 (90 Base) MCG/ACT ProAir HFA 108 (90 Base) MCG/ACT No ProAir HFA 108 (90 Base) MCG/ACT Fluticasone Propionate 50 MCG/ACT Fluticasone Propionate 50 MCG/ACT No 1{spray _in_eac h_nostr il} QD Fluticason e Propionate 50 MCG/ACT Metoprolol Tartrate 50 MG Metoprolol Tartrate 50 MG No 1{table t_with_ food} BID Metoprolol Tartrate 50 MG PARoxetine HCl ER 25 MG PARoxetine HCl ER 25 MG No PARoxetine HCl ER 25 MG ProAir HFA 90MCG ProAir HFA 90MCG No 2{puffs _as_nee ded} ProAir HFA 90MCG Lasix 40 mg Lasix 40 mg No 1{table t} QD Lasix 40 mg Simvastatin 20 mg Simvastatin 20 mg No 1{table t_in_ e_eveni ng} QD Simvastati n 20 mg Simvastatin 20 mg Simvastatin 20 mg No 1{table t_in_ e_eveni ng} QD Simvastati n 20 mg buPROPion HCl ER (XL) 150 MG buPROPion HCl ER (XL) 150 MG No buPROPion HCl ER (XL) 150 MG Vitamin C Vitamin C No Vitamin C ProAir HFA 108 (90 Base) MCG/ACT ProAir HFA 108 (90 Base) MCG/ACT No ProAir HFA 108 (90 Base) MCG/ACT Metoprolol Tartrate 50 MG Metoprolol Tartrate 50 MG No 1{table t_with_ food} BID Metoprolol Tartrate 50 MG PARoxetine HCl ER 25 MG PARoxetine HCl ER 25 MG No PARoxetine HCl ER 25 MG ProAir HFA 90MCG ProAir HFA 90MCG No 2{puffs _as_nee ded} ProAir HFA 90MCG Fluticasone Propionate 50 MCG/ACT Fluticasone Propionate 50 MCG/ACT No 1{spray _in_eac h_nostr il} QD Fluticason e Propionate 50 MCG/ACT Lasix 40 mg Lasix 40 mg No 1{table t} QD Lasix 40 mg Trelegy Ellipta 100-62.5-25 MCG/INH Trelegy Ellipta 100-62.5-25 MCG/INH No 1{puff} QD Trelegy Ellipta 100-62.5-2 5 MCG/INH Simvastatin 20 mg Simvastatin 20 mg No 1{table t_in e_eveni ng} QD Simvastati n 20 mg buPROPion HCl ER (XL) 150 MG buPROPion HCl ER (XL) 150 MG No buPROPion HCl ER (XL) 150 MG Vitamin C Vitamin C No Vitamin C ProAir HFA 108 (90 Base) MCG/ACT ProAir HFA 108 (90 Base) MCG/ACT No ProAir HFA 108 (90 Base) MCG/ACT Metoprolol Tartrate 50 MG Metoprolol Tartrate 50 MG No 1{table t_with_ food} BID Metoprolol Tartrate 50 MG PARoxetine HCl ER 25 MG PARoxetine HCl ER 25 MG No PARoxetine HCl ER 25 MG ProAir HFA 90MCG ProAir HFA 90MCG No 2{puffs _as_nee ded} ProAir HFA 90MCG Fluticasone Propionate 50 MCG/ACT Fluticasone Propionate 50 MCG/ACT No 1{spray _in_eac h_nostr il} QD Fluticason e Propionate 50 MCG/ACT Lasix 40 mg Lasix 40 mg No 1{table t} QD Lasix 40 mg Trelegy Ellipta 100-62.5-25 MCG/INH Trelegy Ellipta 100-62.5-25 MCG/INH No 1{puff} QD Trelegy Ellipta 100-62.5-2 5 MCG/INH Metoprolol Tartrate 50 MG Metoprolol Tartrate 50 MG No 1{table t_with_ food} BID Metoprolol Tartrate 50 MG Simvastatin 20 mg Simvastatin 20 mg No 1{table t_in e_eveni ng} QD Simvastati n 20 mg Vitamin C Vitamin C No Vitamin C PARoxetine HCl ER 25 MG PARoxetine HCl ER 25 MG No PARoxetine HCl ER 25 MG Lasix 40 mg Lasix 40 mg No 1{table t} QD Lasix 40 mg buPROPion HCl ER (XL) 150 MG buPROPion HCl ER (XL) 150 MG No buPROPion HCl ER (XL) 150 MG Fluticasone Propionate 50 MCG/ACT Fluticasone Propionate 50 MCG/ACT No 1{spray _in_eac h_nostr il} QD Fluticason e Propionate 50 MCG/ACT Trelegy Ellipta 100-62.5-25 MCG/INH Trelegy Ellipta 100-62.5-25 MCG/INH No 1{puff} QD Trelegy Ellipta 100-62.5-2 5 MCG/INH ProAir HFA 108 (90 Base) MCG/ACT ProAir HFA 108 (90 Base) MCG/ACT No ProAir HFA 108 (90 Base) MCG/ACT ProAir HFA 90MCG ProAir HFA 90MCG No 2{puffs _as_nee ded} ProAir HFA 90MCG Lasix 40 mg Lasix 40 mg No 1{table t} QD Lasix 40 mg PARoxetine HCl ER 25 MG PARoxetine HCl ER 25 MG No PARoxetine HCl ER 25 MG Simvastatin 20 mg Simvastatin 20 mg No 1{table t_in_ e_eveni ng} QD Simvastati n 20 mg Metoprolol Tartrate 50 MG Metoprolol Tartrate 50 MG No 1{table t_with_ food} BID Metoprolol Tartrate 50 MG Vitamin C Vitamin C No Vitamin C ProAir HFA 108 (90 Base) MCG/ACT ProAir HFA 108 (90 Base) MCG/ACT No ProAir HFA 108 (90 Base) MCG/ACT Fluticasone Propionate 50 MCG/ACT Fluticasone Propionate 50 MCG/ACT No 1{spray _in_eac h_nostr il} QD Fluticason e Propionate 50 MCG/ACT Trelegy Ellipta 100-62.5-25 MCG/INH Trelegy Ellipta 100-62.5-25 MCG/INH No 1{puff} QD Trelegy Ellipta 100-62.5-2 5 MCG/INH buPROPion HCl ER (XL) 150 MG buPROPion HCl ER (XL) 150 MG No buPROPion HCl ER (XL) 150 MG ProAir HFA 90MCG ProAir HFA 90MCG No 2{puffs _as_nee ded} ProAir HFA 90MCG Metoprolol Tartrate 50 MG Metoprolol Tartrate 50 MG No 1{table t_with_ food} BID Metoprolol Tartrate 50 MG Vitamin C Vitamin C No Vitamin C Lasix 40 mg Lasix 40 mg No 1{table t} QD Lasix 40 mg ProAir HFA 108 (90 Base) MCG/ACT ProAir HFA 108 (90 Base) MCG/ACT No ProAir HFA 108 (90 Base) MCG/ACT Simvastatin 20 mg Simvastatin 20 mg No 1{table t_in_ e_eveni ng} QD Simvastati n 20 mg buPROPion HCl ER (XL) 150 MG buPROPion HCl ER (XL) 150 MG No buPROPion HCl ER (XL) 150 MG ProAir HFA 90MCG ProAir HFA 90MCG No 2{puffs _as_nee ded} ProAir HFA 90MCG Fluticasone Propionate 50 MCG/ACT Fluticasone Propionate 50 MCG/ACT No 1{spray _in_eac h_nostr il} QD Fluticason e Propionate 50 MCG/ACT Trelegy Ellipta 100-62.5-25 MCG/INH Trelegy Ellipta 100-62.5-25 MCG/INH No 1{puff} QD Trelegy Ellipta 100-62.5-2 5 MCG/INH PARoxetine HCl ER 25 MG PARoxetine HCl ER 25 MG No PARoxetine HCl ER 25 MG ProAir HFA 90MCG ProAir HFA 90MCG No 2{puffs _as_nee ded} ProAir HFA 90MCG Clopidogrel Bisulfate 75 mg Clopidogrel Bisulfate 75 mg No Clopidogre l Bisulfate 75 mg PARoxetine HCl ER 25 MG PARoxetine HCl ER 25 MG No PARoxetine HCl ER 25 MG Oxybutynin Chloride 5 MG Oxybutynin Chloride 5 MG No 1{table t} BID Oxybutynin Chloride 5 MG Simvastatin 20 mg Simvastatin 20 mg No 1{table t_in_ e_eveni ng} QD Simvastati n 20 mg Lisinopril 20 mg Lisinopril 20 mg No Lisinopril 20 mg Trelegy Ellipta 100-62.5-25 MCG/INH Trelegy Ellipta 100-62.5-25 MCG/INH No Trelegy Ellipta 100-62.5-2 5 MCG/INH buPROPion HCl ER (XL) 150 MG buPROPion HCl ER (XL) 150 MG No buPROPion HCl ER (XL) 150 MG Metoprolol Tartrate 50 MG Metoprolol Tartrate 50 MG No 1{table t_with_ food} BID Metoprolol Tartrate 50 MG Fluticasone Propionate 50 MCG/ACT Fluticasone Propionate 50 MCG/ACT No 1{spray _in_eac h_nostr il} QD Fluticason e Propionate 50 MCG/ACT ProAir HFA 108 (90 Base) MCG/ACT ProAir HFA 108 (90 Base) MCG/ACT No ProAir HFA 108 (90 Base) MCG/ACT Vitamin C Vitamin C No Vitamin C Lasix 40 mg Lasix 40 mg No 1{table t} QD Lasix 40 mg ProAir HFA 90MCG ProAir HFA 90MCG No 2{puffs _as_nee ded} ProAir HFA 90MCG Clopidogrel Bisulfate 75 mg Clopidogrel Bisulfate 75 mg No Clopidogre l Bisulfate 75 mg PARoxetine HCl ER 25 MG PARoxetine HCl ER 25 MG No PARoxetine HCl ER 25 MG Oxybutynin Chloride 5 MG Oxybutynin Chloride 5 MG No 1{table t} BID Oxybutynin Chloride 5 MG Simvastatin 20 mg Simvastatin 20 mg No 1{table t_in_th e_eveni ng} QD Simvastati n 20 mg Lisinopril 20 mg Lisinopril 20 mg No Lisinopril 20 mg Trelegy Ellipta 100-62.5-25 MCG/INH Trelegy Ellipta 100-62.5-25 MCG/INH No Trelegy Ellipta 100-62.5-2 5 MCG/INH buPROPion HCl ER (XL) 150 MG buPROPion HCl ER (XL) 150 MG No buPROPion HCl ER (XL) 150 MG Metoprolol Tartrate 50 MG Metoprolol Tartrate 50 MG No 1{table t_with_ food} BID Metoprolol Tartrate 50 MG Fluticasone Propionate 50 MCG/ACT Fluticasone Propionate 50 MCG/ACT No 1{spray _in_eac h_nostr il} QD Fluticason e Propionate 50 MCG/ACT ProAir HFA 108 (90 Base) MCG/ACT ProAir HFA 108 (90 Base) MCG/ACT No ProAir HFA 108 (90 Base) MCG/ACT Vitamin C Vitamin C No Vitamin C Lasix 40 mg Lasix 40 mg No 1{table t} QD Lasix 40 mg Trelegy Ellipta 100-62.5-25 MCG/INH Trelegy Ellipta 100-62.5-25 MCG/INH No Trelegy Ellipta 100-62.5-2 5 MCG/INH Metoprolol Tartrate 50 MG Metoprolol Tartrate 50 MG No 1{table t_with_ food} BID Metoprolol Tartrate 50 MG ProAir HFA 90MCG ProAir HFA 90MCG No 2{puffs _as_nee ded} ProAir HFA 90MCG Lasix 40 mg Lasix 40 mg No 1{table t} QD Lasix 40 mg buPROPion HCl ER (XL) 150 MG buPROPion HCl ER (XL) 150 MG No buPROPion HCl ER (XL) 150 MG Lisinopril 20 mg Lisinopril 20 mg No Lisinopril 20 mg PARoxetine HCl ER 25 MG PARoxetine HCl ER 25 MG No PARoxetine HCl ER 25 MG Vitamin C Vitamin C No Vitamin C Clopidogrel Bisulfate 75 mg Clopidogrel Bisulfate 75 mg No Clopidogre l Bisulfate 75 mg Oxybutynin Chloride 5 MG Oxybutynin Chloride 5 MG No 1{table t} BID Oxybutynin Chloride 5 MG ProAir HFA 108 (90 Base) MCG/ACT ProAir HFA 108 (90 Base) MCG/ACT No ProAir HFA 108 (90 Base) MCG/ACT Fluticasone Propionate 50 MCG/ACT Fluticasone Propionate 50 MCG/ACT No 1{spray _in_eac h_nostr il} QD Fluticason e Propionate 50 MCG/ACT Simvastatin 20 mg Simvastatin 20 mg No 1{table t_in_th e_eveni ng} QD Simvastati n 20 mg Trelegy Ellipta 100-62.5-25 MCG/INH Trelegy Ellipta 100-62.5-25 MCG/INH No Trelegy Ellipta 100-62.5-2 5 MCG/INH Metoprolol Tartrate 50 MG Metoprolol Tartrate 50 MG No 1{table t_with_ food} BID Metoprolol Tartrate 50 MG ProAir HFA 90MCG ProAir HFA 90MCG No 2{puffs _as_nee ded} ProAir HFA 90MCG Lasix 40 mg Lasix 40 mg No 1{table t} QD Lasix 40 mg buPROPion HCl ER (XL) 150 MG buPROPion HCl ER (XL) 150 MG No buPROPion HCl ER (XL) 150 MG Lisinopril 20 mg Lisinopril 20 mg No Lisinopril 20 mg PARoxetine HCl ER 25 MG PARoxetine HCl ER 25 MG No PARoxetine HCl ER 25 MG Vitamin C Vitamin C No Vitamin C Clopidogrel Bisulfate 75 mg Clopidogrel Bisulfate 75 mg No Clopidogre l Bisulfate 75 mg Oxybutynin Chloride 5 MG Oxybutynin Chloride 5 MG No 1{table t} BID Oxybutynin Chloride 5 MG ProAir HFA 108 (90 Base) MCG/ACT ProAir HFA 108 (90 Base) MCG/ACT No ProAir HFA 108 (90 Base) MCG/ACT Fluticasone Propionate 50 MCG/ACT Fluticasone Propionate 50 MCG/ACT No 1{spray _in_eac h_nostr il} QD Fluticason e Propionate 50 MCG/ACT Simvastatin 20 mg Simvastatin 20 mg No 1{table t_in_th e_eveni ng} QD Simvastati n 20 mg Trelegy Ellipta 100-62.5-25 MCG/INH Trelegy Ellipta 100-62.5-25 MCG/INH No Trelegy Ellipta 100-62.5-2 5 MCG/INH Metoprolol Tartrate 50 MG Metoprolol Tartrate 50 MG No 1{table t_with_ food} BID Metoprolol Tartrate 50 MG ProAir HFA 90MCG ProAir HFA 90MCG No 2{puffs _as_nee ded} ProAir HFA 90MCG Lasix 40 mg Lasix 40 mg No 1{table t} QD Lasix 40 mg buPROPion HCl ER (XL) 150 MG buPROPion HCl ER (XL) 150 MG No buPROPion HCl ER (XL) 150 MG Lisinopril 20 mg Lisinopril 20 mg No Lisinopril 20 mg PARoxetine HCl ER 25 MG PARoxetine HCl ER 25 MG No PARoxetine HCl ER 25 MG Vitamin C Vitamin C No Vitamin C Clopidogrel Bisulfate 75 mg Clopidogrel Bisulfate 75 mg No Clopidogre l Bisulfate 75 mg Oxybutynin Chloride 5 MG Oxybutynin Chloride 5 MG No 1{table t} BID Oxybutynin Chloride 5 MG ProAir HFA 108 (90 Base) MCG/ACT ProAir HFA 108 (90 Base) MCG/ACT No ProAir HFA 108 (90 Base) MCG/ACT Fluticasone Propionate 50 MCG/ACT Fluticasone Propionate 50 MCG/ACT No 1{spray _in_eac h_nostr il} QD Fluticason e Propionate 50 MCG/ACT Simvastatin 20 mg Simvastatin 20 mg No 1{table t_in e_eveni ng} QD Simvastati n 20 mg Trelegy Ellipta 100-62.5-25 MCG/INH Trelegy Ellipta 100-62.5-25 MCG/INH No Trelegy Ellipta 100-62.5-2 5 MCG/INH Metoprolol Tartrate 50 MG Metoprolol Tartrate 50 MG No 1{table t_with_ food} BID Metoprolol Tartrate 50 MG ProAir HFA 90MCG ProAir HFA 90MCG No 2{puffs _as_nee ded} ProAir HFA 90MCG Lasix 40 mg Lasix 40 mg No 1{table t} QD Lasix 40 mg buPROPion HCl ER (XL) 150 MG buPROPion HCl ER (XL) 150 MG No buPROPion HCl ER (XL) 150 MG Lisinopril 20 mg Lisinopril 20 mg No Lisinopril 20 mg PARoxetine HCl ER 25 MG PARoxetine HCl ER 25 MG No PARoxetine HCl ER 25 MG Vitamin C Vitamin C No Vitamin C Clopidogrel Bisulfate 75 mg Clopidogrel Bisulfate 75 mg No Clopidogre l Bisulfate 75 mg Oxybutynin Chloride 5 MG Oxybutynin Chloride 5 MG No 1{table t} BID Oxybutynin Chloride 5 MG ProAir HFA 108 (90 Base) MCG/ACT ProAir HFA 108 (90 Base) MCG/ACT No ProAir HFA 108 (90 Base) MCG/ACT Fluticasone Propionate 50 MCG/ACT Fluticasone Propionate 50 MCG/ACT No 1{spray _in_eac h_nostr il} QD Fluticason e Propionate 50 MCG/ACT Simvastatin 20 mg Simvastatin 20 mg No 1{table t_in_th e_eveni ng} QD Simvastati n 20 mg Trelegy Ellipta 100-62.5-25 MCG/INH Trelegy Ellipta 100-62.5-25 MCG/INH No QD Trelegy Ellipta 100-62.5-2 5 MCG/INH ProAir HFA 108 (90 Base) MCG/ACT ProAir HFA 108 (90 Base) MCG/ACT No ProAir HFA 108 (90 Base) MCG/ACT Oxybutynin Chloride 5 MG Oxybutynin Chloride 5 MG No 1{table t} BID Oxybutynin Chloride 5 MG Fluticasone Propionate 50 MCG/ACT Fluticasone Propionate 50 MCG/ACT No 1{spray _in_eac h_nostr il} QD Fluticason e Propionate 50 MCG/ACT PARoxetine HCl ER 25 MG PARoxetine HCl ER 25 MG No QD PARoxetine HCl ER 25 MG Clopidogrel Bisulfate 75 mg Clopidogrel Bisulfate 75 mg No QD Clopidogre l Bisulfate 75 mg buPROPion HCl ER (XL) 150 MG buPROPion HCl ER (XL) 150 MG No buPROPion HCl ER (XL) 150 MG Simvastatin 20 mg Simvastatin 20 mg No 1{table t_in_ e_eveni ng} QD Simvastati n 20 mg ProAir HFA 90MCG ProAir HFA 90MCG No 2{puffs _as_nee ded} ProAir HFA 90MCG Lasix 40 mg Lasix 40 mg No 1{table t} QD Lasix 40 mg Metoprolol Tartrate 50 MG Metoprolol Tartrate 50 MG No 1{table t_with_ food} BID Metoprolol Tartrate 50 MG Lisinopril 20 mg Lisinopril 20 mg No Lisinopril 20 mg Vitamin C Vitamin C No Vitamin C Trelegy Ellipta 100-62.5-25 MCG/INH Trelegy Ellipta 100-62.5-25 MCG/INH No QD Trelegy Ellipta 100-62.5-2 5 MCG/INH ProAir HFA 108 (90 Base) MCG/ACT ProAir HFA 108 (90 Base) MCG/ACT No ProAir HFA 108 (90 Base) MCG/ACT Oxybutynin Chloride 5 MG Oxybutynin Chloride 5 MG No 1{table t} BID Oxybutynin Chloride 5 MG Fluticasone Propionate 50 MCG/ACT Fluticasone Propionate 50 MCG/ACT No 1{spray _in_eac h_nostr il} QD Fluticason e Propionate 50 MCG/ACT PARoxetine HCl ER 25 MG PARoxetine HCl ER 25 MG No QD PARoxetine HCl ER 25 MG Clopidogrel Bisulfate 75 mg Clopidogrel Bisulfate 75 mg No QD Clopidogre l Bisulfate 75 mg buPROPion HCl ER (XL) 150 MG buPROPion HCl ER (XL) 150 MG No buPROPion HCl ER (XL) 150 MG Simvastatin 20 mg Simvastatin 20 mg No 1{table t_in e_eveni ng} QD Simvastati n 20 mg ProAir HFA 90MCG ProAir HFA 90MCG No 2{puffs _as_nee ded} ProAir HFA 90MCG Lasix 40 mg Lasix 40 mg No 1{table t} QD Lasix 40 mg Metoprolol Tartrate 50 MG Metoprolol Tartrate 50 MG No 1{table t_with_ food} BID Metoprolol Tartrate 50 MG Lisinopril 20 mg Lisinopril 20 mg No Lisinopril 20 mg Vitamin C Vitamin C No Vitamin C Clopidogrel Bisulfate 75 mg Clopidogrel Bisulfate 75 mg No QD Clopidogre l Bisulfate 75 mg Fluticasone Propionate 50 MCG/ACT Fluticasone Propionate 50 MCG/ACT No 1{spray _in_eac h_nostr il} QD Fluticason e Propionate 50 MCG/ACT ProAir HFA 108 (90 Base) MCG/ACT ProAir HFA 108 (90 Base) MCG/ACT No ProAir HFA 108 (90 Base) MCG/ACT Trelegy Ellipta 100-62.5-25 MCG/INH Trelegy Ellipta 100-62.5-25 MCG/INH No QD Trelegy Ellipta 100-62.5-2 5 MCG/INH Simvastatin 20 mg Simvastatin 20 mg No 1{table t_in e_eveni ng} QD Simvastati n 20 mg oxyBUTYnin Chloride 5 MG oxyBUTYnin Chloride 5 MG No 1{table t} BID oxyBUTYnin Chloride 5 MG PARoxetine HCl ER 25 MG PARoxetine HCl ER 25 MG No QD PARoxetine HCl ER 25 MG Vitamin C Vitamin C No Vitamin C ProAir HFA 90MCG ProAir HFA 90MCG No 2{puffs _as_nee ded} ProAir HFA 90MCG Lisinopril 20 mg Lisinopril 20 mg No Lisinopril 20 mg Metoprolol Tartrate 50 MG Metoprolol Tartrate 50 MG No 1{table t_with_ food} BID Metoprolol Tartrate 50 MG buPROPion HCl ER (XL) 300 MG buPROPion HCl ER (XL) 300 MG No QD buPROPion HCl ER (XL) 300 MG Lasix 40 mg Lasix 40 mg No 1{table t} QD Lasix 40 mg Clopidogrel Bisulfate 75 mg Clopidogrel Bisulfate 75 mg No QD Clopidogre l Bisulfate 75 mg Lasix 40 mg Lasix 40 mg No 1{table t} QD Lasix 40 mg Fluticasone Propionate 50 MCG/ACT Fluticasone Propionate 50 MCG/ACT No 1{spray _in_eac h_nostr il} QD Fluticason e Propionate 50 MCG/ACT Vitamin C Vitamin C No Vitamin C ProAir HFA 108 (90 Base) MCG/ACT ProAir HFA 108 (90 Base) MCG/ACT No ProAir HFA 108 (90 Base) MCG/ACT Trelegy Ellipta 100-62.5-25 MCG/INH Trelegy Ellipta 100-62.5-25 MCG/INH No QD Trelegy Ellipta 100-62.5-2 5 MCG/INH buPROPion HCl ER (XL) 300 MG buPROPion HCl ER (XL) 300 MG No QD buPROPion HCl ER (XL) 300 MG Lisinopril 20 mg Lisinopril 20 mg No Lisinopril 20 mg ProAir HFA 90MCG ProAir HFA 90MCG No 2{puffs _as_nee ded} ProAir HFA 90MCG PARoxetine HCl ER 25 MG PARoxetine HCl ER 25 MG No QD PARoxetine HCl ER 25 MG Metoprolol Tartrate 50 MG Metoprolol Tartrate 50 MG No 1{table t_with_ food} BID Metoprolol Tartrate 50 MG Simvastatin 20 mg Simvastatin 20 mg No 1{table t_in_ e_eveni ng} QD Simvastati n 20 mg oxyBUTYnin Chloride 5 MG oxyBUTYnin Chloride 5 MG No 1{table t} BID oxyBUTYnin Chloride 5 MG Simvastatin 20 mg Simvastatin 20 mg No 1{table t_in_ e_eveni ng} QD Simvastati n 20 mg buPROPion HCl ER (XL) 300 MG buPROPion HCl ER (XL) 300 MG No QD buPROPion HCl ER (XL) 300 MG Lisinopril 20 mg Lisinopril 20 mg No Lisinopril 20 mg Fluticasone Propionate 50 MCG/ACT Fluticasone Propionate 50 MCG/ACT No 1{spray _in_eac h_nostr il} QD Fluticason e Propionate 50 MCG/ACT oxyBUTYnin Chloride 5 MG oxyBUTYnin Chloride 5 MG No 1{table t} BID oxyBUTYnin Chloride 5 MG Trelegy Ellipta 100-62.5-25 MCG/INH Trelegy Ellipta 100-62.5-25 MCG/INH No QD Trelegy Ellipta 100-62.5-2 5 MCG/INH PARoxetine HCl ER 25 MG PARoxetine HCl ER 25 MG No QD PARoxetine HCl ER 25 MG Clopidogrel Bisulfate 75 mg Clopidogrel Bisulfate 75 mg No QD Clopidogre l Bisulfate 75 mg Metoprolol Tartrate 50 MG Metoprolol Tartrate 50 MG No 1{table t_with_ food} BID Metoprolol Tartrate 50 MG ProAir HFA 90MCG ProAir HFA 90MCG No 2{puffs _as_nee ded} ProAir HFA 90MCG Lasix 40 mg Lasix 40 mg No 1{table t} QD Lasix 40 mg Vitamin C Vitamin C No Vitamin C Simvastatin 20 mg Simvastatin 20 mg No 1{table t_in_ e_eveni ng} QD Simvastati n 20 mg buPROPion HCl ER (XL) 300 MG buPROPion HCl ER (XL) 300 MG No QD buPROPion HCl ER (XL) 300 MG Lisinopril 20 mg Lisinopril 20 mg No Lisinopril 20 mg Fluticasone Propionate 50 MCG/ACT Fluticasone Propionate 50 MCG/ACT No 1{spray _in_eac h_nostr il} QD Fluticason e Propionate 50 MCG/ACT oxyBUTYnin Chloride 5 MG oxyBUTYnin Chloride 5 MG No 1{table t} BID oxyBUTYnin Chloride 5 MG Trelegy Ellipta 100-62.5-25 MCG/INH Trelegy Ellipta 100-62.5-25 MCG/INH No QD Trelegy Ellipta 100-62.5-2 5 MCG/INH PARoxetine HCl ER 25 MG PARoxetine HCl ER 25 MG No QD PARoxetine HCl ER 25 MG Clopidogrel Bisulfate 75 mg Clopidogrel Bisulfate 75 mg No QD Clopidogre l Bisulfate 75 mg Metoprolol Tartrate 50 MG Metoprolol Tartrate 50 MG No 1{table t_with_ food} BID Metoprolol Tartrate 50 MG ProAir HFA 90MCG ProAir HFA 90MCG No 2{puffs _as_nee ded} ProAir HFA 90MCG Lasix 40 mg Lasix 40 mg No 1{table t} QD Lasix 40 mg Vitamin C Vitamin C No Vitamin C ProAir HFA 90MCG ProAir HFA 90MCG No 2{puffs _as_nee ded} ProAir HFA 90MCG Fluticasone Propionate 50 MCG/ACT Fluticasone Propionate 50 MCG/ACT No 1{spray _in_eac h_nostr il} QD Fluticason e Propionate 50 MCG/ACT Vitamin C Vitamin C No Vitamin C ProAir HFA 108 (90 Base) MCG/ACT ProAir HFA 108 (90 Base) MCG/ACT No ProAir HFA 108 (90 Base) MCG/ACT PARoxetine HCl ER 25 MG PARoxetine HCl ER 25 MG No PARoxetine HCl ER 25 MG Oxybutynin Chloride 5 MG Oxybutynin Chloride 5 MG No Oxybutynin Chloride 5 MG Simvastatin 20 mg Simvastatin 20 mg No 1{table t_in_ e_eveni ng} QD Simvastati n 20 mg Trelegy Ellipta 100-62.5-25 MCG/INH Trelegy Ellipta 100-62.5-25 MCG/INH No 1{puff} QD Trelegy Ellipta 100-62.5-2 5 MCG/INH Lasix 40 mg Lasix 40 mg No 1{table t} QD Lasix 40 mg ProAir HFA 108 (90 Base) MCG/ACT ProAir HFA 108 (90 Base) MCG/ACT No ProAir HFA 108 (90 Base) MCG/ACT Trelegy Ellipta 100-62.5-25 MCG/INH Trelegy Ellipta 100-62.5-25 MCG/INH 03-26 00:00 :00 No 1{puff} QD Trelegy Ellipta 100-62.5-2 5 MCG/INH Trelegy Ellipta 100-62.5-25 MCG/INH Trelegy Ellipta 100-62.5-25 MCG/INH 03-26 00:00 :00 No 1{puff} QD Trelegy Ellipta 100-62.5-2 5 MCG/INH Trelegy Ellipta 100-62.5-25 MCG/INH Trelegy Ellipta 100-62.5-25 MCG/INH 03-26 00:00 :00 No 1{puff} QD Trelegy Ellipta 100-62.5-2 5 MCG/INH Trelegy Ellipta 100-62.5-25 MCG/INH Trelegy Ellipta 100-62.5-25 MCG/INH 03-26 00:00 :00 No 1{puff} QD Trelegy Ellipta 100-62.5-2 5 MCG/INH Trelegy Ellipta 100-62.5-25 MCG/INH Trelegy Ellipta 100-62.5-25 MCG/INH 03-26 00:00 :00 No 1{puff} QD Trelegy Ellipta 100-62.5-2 5 MCG/INH Trelegy Ellipta 100-62.5-25 MCG/INH Trelegy Ellipta 100-62.5-25 MCG/INH 02-08 00:00 :00 No 1{puff} QD Trelegy Ellipta 100-62.5-2 5 MCG/INH Immunizations Ordered Immunization Name Filled Immunization Name Date Status Comments Source FLUZONE HIGH DOSE OVER 65 FLUZONE HIGH DOSE OVER 65 2022-10-11 08:52:00 Completed [facility] FLUZONE HIGH DOSE OVER 65 FLUZONE HIGH DOSE OVER 65 2022-10-11 08:52:00 Completed [facility] FLUZONE HIGH DOSE OVER 65 FLUZONE HIGH DOSE OVER 65 2021-06-29 09:42:00 Completed [facility] FLUZONE HIGH DOSE OVER 65 FLUZONE HIGH DOSE OVER 65 2021-06-29 09:42:00 Completed [facility] FLUZONE HIGH DOSE OVER 65 FLUZONE HIGH DOSE OVER 65 2021-06-29 09:42:00 Completed [facility] FLUZONE HIGH DOSE OVER 65 FLUZONE HIGH DOSE OVER 65 2021-06-29 09:42:00 Completed [facility] FLUZONE HIGH DOSE OVER 65 FLUZONE HIGH DOSE OVER 65 2021-06-29 09:42:00 Completed [facility] FLUZONE HIGH DOSE OVER 65 FLUZONE HIGH DOSE OVER 65 2021-06-29 09:42:00 Completed [facility] FLUZONE HIGH DOSE OVER 65 FLUZONE HIGH DOSE OVER 65 2021-06-29 09:42:00 Completed [facility] FLUZONE HIGH DOSE OVER 65 FLUZONE HIGH DOSE OVER 65 2021-06-29 09:42:00 Completed [facility] FLUZONE HIGH DOSE OVER 65 FLUZONE HIGH DOSE OVER 65 2021-06-29 09:42:00 Completed [facility] FLUZONE HIGH DOSE OVER 65 FLUZONE HIGH DOSE OVER 65 2021-06-29 09:42:00 Completed [facility] FLUZONE HIGH DOSE OVER 65 FLUZONE HIGH DOSE OVER 65 2021-06-29 09:42:00 Completed [facility] FLUZONE HIGH DOSE OVER 65 FLUZONE HIGH DOSE OVER 65 2021-06-29 09:42:00 Completed [facility] FLUZONE HIGH DOSE OVER 65 FLUZONE HIGH DOSE OVER 65 2021-06-29 09:42:00 Completed [facility] FLUZONE HIGH DOSE OVER 65 FLUZONE HIGH DOSE OVER 65 2021-06-29 09:42:00 Completed [facility] FLUZONE HIGH DOSE OVER 65 FLUZONE HIGH DOSE OVER 65 2021-06-29 09:42:00 Completed [facility] FLUZONE HIGH DOSE OVER 65 FLUZONE HIGH DOSE OVER 65 2021-06-29 09:42:00 Completed [facility] FLUZONE HIGH DOSE OVER 65 FLUZONE HIGH DOSE OVER 65 2021-06-29 09:42:00 Completed [facility] FLUZONE HIGH DOSE OVER 65 FLUZONE HIGH DOSE OVER 65 2021-06-29 09:42:00 Completed [facility] FLUZONE HIGH DOSE OVER 65 FLUZONE HIGH DOSE OVER 65 2021-06-29 09:42:00 Completed [facility] FLUZONE HIGH DOSE OVER 65 FLUZONE HIGH DOSE OVER 65 2021-06-29 09:42:00 Completed [facility] COVID-19 Vaccine (Irma) COVID-19 Vaccine (Irma) 2020-12-23 11:01:00 Completed [facility] COVID-19 Vaccine (Irma) COVID-19 Vaccine (Irma) 2020-12-23 11:01:00 Completed [facility] COVID-19 Vaccine (Irma) COVID-19 Vaccine (Irma) 2020-12-23 11:01:00 Completed [facility] COVID-19 Vaccine (Irma) COVID-19 Vaccine (Irma) 2020-12-23 11:01:00 Completed [facility] COVID-19 Vaccine (Irma) COVID-19 Vaccine (Irma) 2020-12-23 11:01:00 Completed [facility] COVID-19 Vaccine (Irma) COVID-19 Vaccine (Iram) 2020-12-23 11:01:00 Completed [facility] COVID-19 Vaccine (Irma) COVID-19 Vaccine (Irma) 2020-12-23 11:01:00 Completed [facility] COVID-19 Vaccine (Irma) COVID-19 Vaccine (Irma) 2020-12-23 11:01:00 Completed [facility] COVID-19 Vaccine (Irma) COVID-19 Vaccine (Irma) 2020-12-23 11:01:00 Completed [facility] COVID-19 Vaccine (Irma) COVID-19 Vaccine (Irma) 2020-12-23 11:01:00 Completed [facility] COVID-19 Vaccine (Irma) COVID-19 Vaccine (Irma) 2020-12-23 11:01:00 Completed [facility] COVID-19 Vaccine (Irma) COVID-19 Vaccine (Irma) 2020-12-23 11:01:00 Completed [facility] COVID-19 Vaccine (Irma) COVID-19 Vaccine (Irma) 2020-12-23 11:01:00 Completed [facility] COVID-19 Vaccine (Irma) COVID-19 Vaccine (Irma) 2020-12-23 11:01:00 Completed [facility] COVID-19 Vaccine (Irma) COVID-19 Vaccine (Irma) 2020-12-23 11:01:00 Completed [facility] COVID-19 Vaccine (Irma) COVID-19 Vaccine (Irma) 2020-12-23 11:01:00 Completed [facility] COVID-19 Vaccine (Irma) COVID-19 Vaccine (Irma) 2020-12-23 11:01:00 Completed [facility] COVID-19 Vaccine (Irma) COVID-19 Vaccine (Irma) 2020-12-23 11:01:00 Completed [facility] COVID-19 Vaccine (Irma) COVID-19 Vaccine (Irma) 2020-12-23 11:01:00 Completed [facility] COVID-19 Vaccine (Irma) COVID-19 Vaccine (Irma) 2020-12-23 11:01:00 Completed [facility] COVID-19 Vaccine (Irma) COVID-19 Vaccine (Irma) 2020-12-23 11:01:00 Completed [facility] FLUZONE HIGH DOSE OVER 65 FLUZONE HIGH DOSE OVER 65 2020-06-30 19:14:00 Completed [facility] FLUZONE HIGH DOSE OVER 65 FLUZONE HIGH DOSE OVER 65 2020-06-30 19:14:00 Completed [facility] FLUZONE HIGH DOSE OVER 65 FLUZONE HIGH DOSE OVER 65 2020-06-30 19:14:00 Completed [facility] FLUZONE HIGH DOSE OVER 65 FLUZONE HIGH DOSE OVER 65 2020-06-30 19:14:00 Completed [facility] FLUZONE HIGH DOSE OVER 65 FLUZONE HIGH DOSE OVER 65 2020-06-30 19:14:00 Completed [facility] FLUZONE HIGH DOSE OVER 65 FLUZONE HIGH DOSE OVER 65 2020-06-30 19:14:00 Completed [facility] FLUZONE HIGH DOSE OVER 65 FLUZONE HIGH DOSE OVER 65 2020-06-30 19:14:00 Completed [facility] FLUZONE HIGH DOSE OVER 65 FLUZONE HIGH DOSE OVER 65 2020-06-30 19:14:00 Completed [facility] FLUZONE HIGH DOSE OVER 65 FLUZONE HIGH DOSE OVER 65 2020-06-30 19:14:00 Completed [facility] FLUZONE HIGH DOSE OVER 65 FLUZONE HIGH DOSE OVER 65 2020-06-30 19:14:00 Completed [facility] FLUZONE HIGH DOSE OVER 65 FLUZONE HIGH DOSE OVER 65 2020-06-30 19:14:00 Completed [facility] FLUZONE HIGH DOSE OVER 65 FLUZONE HIGH DOSE OVER 65 2020-06-30 19:14:00 Completed [facility] FLUZONE HIGH DOSE OVER 65 FLUZONE HIGH DOSE OVER 65 2020-06-30 19:14:00 Completed [facility] FLUZONE HIGH DOSE OVER 65 FLUZONE HIGH DOSE OVER 65 2020-06-30 19:14:00 Completed [facility] FLUZONE HIGH DOSE OVER 65 FLUZONE HIGH DOSE OVER 65 2020-06-30 19:14:00 Completed [facility] FLUZONE HIGH DOSE OVER 65 FLUZONE HIGH DOSE OVER 65 2020-06-30 19:14:00 Completed [facility] FLUZONE HIGH DOSE OVER 65 FLUZONE HIGH DOSE OVER 65 2020-06-30 19:14:00 Completed [facility] FLUZONE HIGH DOSE OVER 65 FLUZONE HIGH DOSE OVER 65 2020-06-30 19:14:00 Completed [facility] FLUZONE HIGH DOSE OVER 65 FLUZONE HIGH DOSE OVER 65 2020-06-30 19:14:00 Completed [facility] FLUZONE HIGH DOSE OVER 65 FLUZONE HIGH DOSE OVER 65 2020-06-30 19:14:00 Completed [facility] FLUZONE HIGH DOSE OVER 65 FLUZONE HIGH DOSE OVER 65 2020-06-30 19:14:00 Completed [facility] Td Td 2019-09-08 11:28:00 Completed [facility] Prevnar 13 -Pneumonia Vaccine Prevnar 13 -Pneumonia Vaccine 2019-09-08 11:28:00 Completed [facility] Td Td 2019-09-08 11:28:00 Completed [facility] Prevnar 13 -Pneumonia Vaccine Prevnar 13 -Pneumonia Vaccine 2019-09-08 11:28:00 Completed [facility] Td Td 2019-09-08 11:28:00 Completed [facility] Prevnar 13 -Pneumonia Vaccine Prevnar 13 -Pneumonia Vaccine 2019-09-08 11:28:00 Completed [facility] Td Td 2019-09-08 11:28:00 Completed [facility] Prevnar 13 -Pneumonia Vaccine Prevnar 13 -Pneumonia Vaccine 2019-09-08 11:28:00 Completed [facility] Td Td 2019-09-08 11:28:00 Completed [facility] Prevnar 13 -Pneumonia Vaccine Prevnar 13 -Pneumonia Vaccine 2019-09-08 11:28:00 Completed [facility] Td Td 2019-09-08 11:28:00 Completed [facility] Prevnar 13 -Pneumonia Vaccine Prevnar 13 -Pneumonia Vaccine 2019-09-08 11:28:00 Completed [facility] Td Td 2019-09-08 11:28:00 Completed [facility] Prevnar 13 -Pneumonia Vaccine Prevnar 13 -Pneumonia Vaccine 2019-09-08 11:28:00 Completed [facility] Td Td 2019-09-08 11:28:00 Completed [facility] Prevnar 13 -Pneumonia Vaccine Prevnar 13 -Pneumonia Vaccine 2019-09-08 11:28:00 Completed [facility] Td Td 2019-09-08 11:28:00 Completed [facility] Prevnar 13 -Pneumonia Vaccine Prevnar 13 -Pneumonia Vaccine 2019-09-08 11:28:00 Completed [facility] Td Td 2019-09-08 11:28:00 Completed [facility] Prevnar 13 -Pneumonia Vaccine Prevnar 13 -Pneumonia Vaccine 2019-09-08 11:28:00 Completed [facility] Td Td 2019-09-08 11:28:00 Completed [facility] Prevnar 13 -Pneumonia Vaccine Prevnar 13 -Pneumonia Vaccine 2019-09-08 11:28:00 Completed [facility] Td Td 2019-09-08 11:28:00 Completed [facility] Prevnar 13 -Pneumonia Vaccine Prevnar 13 -Pneumonia Vaccine 2019-09-08 11:28:00 Completed [facility] Td Td 2019-09-08 11:28:00 Completed [facility] Prevnar 13 -Pneumonia Vaccine Prevnar 13 -Pneumonia Vaccine 2019-09-08 11:28:00 Completed [facility] Td Td 2019-09-08 11:28:00 Completed [facility] Prevnar 13 -Pneumonia Vaccine Prevnar 13 -Pneumonia Vaccine 2019-09-08 11:28:00 Completed [facility] Td Td 2019-09-08 11:28:00 Completed [facility] Prevnar 13 -Pneumonia Vaccine Prevnar 13 -Pneumonia Vaccine 2019-09-08 11:28:00 Completed [facility] Td Td 2019-09-08 11:28:00 Completed [facility] Prevnar 13 -Pneumonia Vaccine Prevnar 13 -Pneumonia Vaccine 2019-09-08 11:28:00 Completed [facility] Td Td 2019-09-08 11:28:00 Completed [facility] Prevnar 13 -Pneumonia Vaccine Prevnar 13 -Pneumonia Vaccine 2019-09-08 11:28:00 Completed [facility] Td Td 2019-09-08 11:28:00 Completed [facility] Prevnar 13 -Pneumonia Vaccine Prevnar 13 -Pneumonia Vaccine 2019-09-08 11:28:00 Completed [facility] Td Td 2019-09-08 11:28:00 Completed [facility] Prevnar 13 -Pneumonia Vaccine Prevnar 13 -Pneumonia Vaccine 2019-09-08 11:28:00 Completed [facility] Td Td 2019-09-08 11:28:00 Completed [facility] Prevnar 13 -Pneumonia Vaccine Prevnar 13 -Pneumonia Vaccine 2019-09-08 11:28:00 Completed [facility] Td Td 2019-09-08 11:28:00 Completed [facility] Prevnar 13 -Pneumonia Vaccine Prevnar 13 -Pneumonia Vaccine 2019-09-08 11:28:00 Completed [facility] FLUZONE HIGH DOSE OVER 65 FLUZONE HIGH DOSE OVER 65 2019-09-08 11:08:00 Completed [facility] FLUZONE HIGH DOSE OVER 65 FLUZONE HIGH DOSE OVER 65 2019-09-08 11:08:00 Completed [facility] FLUZONE HIGH DOSE OVER 65 FLUZONE HIGH DOSE OVER 65 2019-09-08 11:08:00 Completed [facility] FLUZONE HIGH DOSE OVER 65 FLUZONE HIGH DOSE OVER 65 2019-09-08 11:08:00 Completed [facility] FLUZONE HIGH DOSE OVER 65 FLUZONE HIGH DOSE OVER 65 2019-09-08 11:08:00 Completed [facility] FLUZONE HIGH DOSE OVER 65 FLUZONE HIGH DOSE OVER 65 2019-09-08 11:08:00 Completed [facility] FLUZONE HIGH DOSE OVER 65 FLUZONE HIGH DOSE OVER 65 2019-09-08 11:08:00 Completed [facility] FLUZONE HIGH DOSE OVER 65 FLUZONE HIGH DOSE OVER 65 2019-09-08 11:08:00 Completed [facility] FLUZONE HIGH DOSE OVER 65 FLUZONE HIGH DOSE OVER 65 2019-09-08 11:08:00 Completed [facility] FLUZONE HIGH DOSE OVER 65 FLUZONE HIGH DOSE OVER 65 2019-09-08 11:08:00 Completed [facility] FLUZONE HIGH DOSE OVER 65 FLUZONE HIGH DOSE OVER 65 2019-09-08 11:08:00 Completed [facility] FLUZONE HIGH DOSE OVER 65 FLUZONE HIGH DOSE OVER 65 2019-09-08 11:08:00 Completed [facility] FLUZONE HIGH DOSE OVER 65 FLUZONE HIGH DOSE OVER 65 2019-09-08 11:08:00 Completed [facility] FLUZONE HIGH DOSE OVER 65 FLUZONE HIGH DOSE OVER 65 2019-09-08 11:08:00 Completed [facility] FLUZONE HIGH DOSE OVER 65 FLUZONE HIGH DOSE OVER 65 2019-09-08 11:08:00 Completed [facility] FLUZONE HIGH DOSE OVER 65 FLUZONE HIGH DOSE OVER 65 2019-09-08 11:08:00 Completed [facility] FLUZONE HIGH DOSE OVER 65 FLUZONE HIGH DOSE OVER 65 2019-09-08 11:08:00 Completed [facility] FLUZONE HIGH DOSE OVER 65 FLUZONE HIGH DOSE OVER 65 2019-09-08 11:08:00 Completed [facility] FLUZONE HIGH DOSE OVER 65 FLUZONE HIGH DOSE OVER 65 2019-09-08 11:08:00 Completed [facility] FLUZONE HIGH DOSE OVER 65 FLUZONE HIGH DOSE OVER 65 2019-09-08 11:08:00 Completed [facility] FLUZONE HIGH DOSE OVER 65 FLUZONE HIGH DOSE OVER 65 2019-09-08 11:08:00 Completed [facility] FLUZONE HIGH DOSE OVER 65 FLUZONE HIGH DOSE OVER 65 2019-09-08 00:00:00 Completed [facility] Prevnar 13 -Pneumonia Vaccine Prevnar 13 -Pneumonia Vaccine 2019-09-08 00:00:00 Completed [facility] Td Td 2019-09-08 00:00:00 Completed [facility] Pneumovax (PPSV23) Pneumovax (PPSV23) 2016-02-07 11:39:00 Completed [facility] Pneumovax (PPSV23) Pneumovax (PPSV23) 2016-02-07 11:39:00 Completed [facility] Pneumovax (PPSV23) Pneumovax (PPSV23) 2016-02-07 11:39:00 Completed [facility] Pneumovax (PPSV23) Pneumovax (PPSV23) 2016-02-07 11:39:00 Completed [facility] Pneumovax (PPSV23) Pneumovax (PPSV23) 2016-02-07 11:39:00 Completed [facility] Pneumovax (PPSV23) Pneumovax (PPSV23) 2016-02-07 11:39:00 Completed [facility] Pneumovax (PPSV23) Pneumovax (PPSV23) 2016-02-07 11:39:00 Completed [facility] Pneumovax (PPSV23) Pneumovax (PPSV23) 2016-02-07 11:39:00 Completed [facility] Pneumovax (PPSV23) Pneumovax (PPSV23) 2016-02-07 11:39:00 Completed [facility] Pneumovax (PPSV23) Pneumovax (PPSV23) 2016-02-07 11:39:00 Completed [facility] Pneumovax (PPSV23) Pneumovax (PPSV23) 2016-02-07 11:39:00 Completed [facility] Pneumovax (PPSV23) Pneumovax (PPSV23) 2016-02-07 11:39:00 Completed [facility] Pneumovax (PPSV23) Pneumovax (PPSV23) 2016-02-07 11:39:00 Completed [facility] Pneumovax (PPSV23) Pneumovax (PPSV23) 2016-02-07 11:39:00 Completed [facility] Pneumovax (PPSV23) Pneumovax (PPSV23) 2016-02-07 11:39:00 Completed [facility] Pneumovax (PPSV23) Pneumovax (PPSV23) 2016-02-07 11:39:00 Completed [facility] Pneumovax (PPSV23) Pneumovax (PPSV23) 2016-02-07 11:39:00 Completed [facility] Pneumovax (PPSV23) Pneumovax (PPSV23) 2016-02-07 11:39:00 Completed [facility] Pneumovax (PPSV23) Pneumovax (PPSV23) 2016-02-07 11:39:00 Completed [facility] Pneumovax (PPSV23) Pneumovax (PPSV23) 2016-02-07 11:39:00 Completed [facility] Pneumovax (PPSV23) Pneumovax (PPSV23) 2016-02-07 11:39:00 Completed [facility] COVID-19 Vaccine (Irma) COVID-19 Vaccine (Irma) Unknown Completed [facility] Td Td Unknown Completed [facility] Pneumovax (PPSV23) Pneumovax (PPSV23) Unknown Completed [facility] Prevnar 13 -Pneumonia Vaccine Prevnar 13 -Pneumonia Vaccine Unknown Completed [facility] FLUZONE HIGH DOSE OVER 65 FLUZONE HIGH DOSE OVER 65 Unknown Completed [facility] FLUZONE HIGH DOSE OVER 65 FLUZONE HIGH DOSE OVER 65 Unknown Completed [facility] FLUZONE HIGH DOSE OVER 65 FLUZONE HIGH DOSE OVER 65 Unknown Completed [facility] FLUZONE HIGH DOSE OVER 65 FLUZONE HIGH DOSE OVER 65 Unknown Completed [facility] COVID-19 Vaccine (Irma) COVID-19 Vaccine (Irma) Unknown Completed [facility] Td Td Unknown Completed [facility] Pneumovax (PPSV23) Pneumovax (PPSV23) Unknown Completed [facility] Prevnar 13 -Pneumonia Vaccine Prevnar 13 -Pneumonia Vaccine Unknown Completed [facility] FLUZONE HIGH DOSE OVER 65 FLUZONE HIGH DOSE OVER 65 Unknown Completed [facility] FLUZONE HIGH DOSE OVER 65 FLUZONE HIGH DOSE OVER 65 Unknown Completed [facility] FLUZONE HIGH DOSE OVER 65 FLUZONE HIGH DOSE OVER 65 Unknown Completed [facility] FLUZONE HIGH DOSE OVER 65 FLUZONE HIGH DOSE OVER 65 Unknown Completed [facility] COVID-19 Vaccine (Irma) COVID-19 Vaccine (Irma) Unknown Completed [facility] Td Td Unknown Completed [facility] Pneumovax (PPSV23) Pneumovax (PPSV23) Unknown Completed [facility] Prevnar 13 -Pneumonia Vaccine Prevnar 13 -Pneumonia Vaccine Unknown Completed [facility] FLUZONE HIGH DOSE OVER 65 FLUZONE HIGH DOSE OVER 65 Unknown Completed [facility] FLUZONE HIGH DOSE OVER 65 FLUZONE HIGH DOSE OVER 65 Unknown Completed [facility] FLUZONE HIGH DOSE OVER 65 FLUZONE HIGH DOSE OVER 65 Unknown Completed [facility] FLUZONE HIGH DOSE OVER 65 FLUZONE HIGH DOSE OVER 65 Unknown Completed [facility] COVID-19 Vaccine (Irma) COVID-19 Vaccine (Irma) Unknown Completed [facility] Td Td Unknown Completed [facility] Pneumovax (PPSV23) Pneumovax (PPSV23) Unknown Completed [facility] Prevnar 13 -Pneumonia Vaccine Prevnar 13 -Pneumonia Vaccine Unknown Completed [facility] FLUZONE HIGH DOSE OVER 65 FLUZONE HIGH DOSE OVER 65 Unknown Completed [facility] FLUZONE HIGH DOSE OVER 65 FLUZONE HIGH DOSE OVER 65 Unknown Completed [facility] FLUZONE HIGH DOSE OVER 65 FLUZONE HIGH DOSE OVER 65 Unknown Completed [facility] FLUZONE HIGH DOSE OVER 65 FLUZONE HIGH DOSE OVER 65 Unknown Completed [facility] Vital Signs Vital Name Observation Time Observation Value Comments Manju abdul height 2023-10-16 08:00:00 67 [in_i] Commo n [facility] weight 2023-10-16 08:00:00 129 [lb_av] Comm on [facility] temperature 2023-10-16 08:00:00 97.9 [degF] Com [facility] bmi 2023-10-16 08:00:00 20.2 kg/m2 Commo n [facility] oximetry 2023-10-16 08:00:00 98 % Commo n [facility] respiratory rate 2023-10-16 08:00:00 18 /min [facility] blood pressure systolic 2023-10-16 08:00:00 122 mm[Hg] Common [facility] blood pressure diastolic 2023-10-16 08:00:00 84 mm[Hg] [facility] height 2023-03-15 09:40:00 66 [in_i] Commo n [facility] weight 2023-03-15 09:40:00 138.6 [lb_av] Co mmon [facility] temperature 2023-03-15 09:40:00 97.3 [degF] Com mon [facility] bmi 2023-03-15 09:40:00 22.37 kg/m2 Comm on [facility] oximetry 2023-03-15 09:40:00 97 % Commo n [facility] respiratory rate 2023-03-15 09:40:00 16 /min [facility] blood pressure systolic 2023-03-15 09:40:00 138 mm[Hg] [facility] blood pressure diastolic 2023-03-15 09:40:00 72 mm[Hg] Common [facility] Body weight 2022-10-12 14:38:00 65.772 kg [facility] BMI 2022-10-12 14:38:00 22.05 kg/m2 [facility] height 2022-10-11 08:00:00 66 [in_i] Commo n [facility] weight 2022-10-11 08:00:00 154.0 [lb_av] Co mmon [facility] temperature 2022-10-11 08:00:00 98.7 [degF] Com [facility] bmi 2022-10-11 08:00:00 24.85 kg/m2 Comm on [facility] oximetry 2022-10-11 08:00:00 99 % Commo n [facility] respiratory rate 2022-10-11 08:00:00 17 /min [facility] blood pressure systolic 2022-10-11 08:00:00 158 mm[Hg] [facility] blood pressure diastolic 2022-10-11 08:00:00 88 mm[Hg] [facility] height 2022-09-05 08:20:00 66 [in_i] Commo n [facility] weight 2022-09-05 08:20:00 154.6 [lb_av] Co mmon [facility] temperature 2022-09-05 08:20:00 98.6 [degF] Com mon [facility] bmi 2022-09-05 08:20:00 24.95 kg/m2 Comm on [facility] oximetry 2022-09-05 08:20:00 97 % Commo n [facility] respiratory rate 2022-09-05 08:20:00 17 /min [facility] blood pressure systolic 2022-09-05 08:20:00 118 mm[Hg] [facility] blood pressure diastolic 2022-09-05 08:20:00 55 mm[Hg] Common [facility] height 2022-05-09 11:40:00 66 [in_i] Commo n [facility] weight 2022-05-09 11:40:00 148.8 [lb_av] Co mmon [facility] temperature 2022-05-09 11:40:00 97.8 [degF] Com mon [facility] bmi 2022-05-09 11:40:00 24.01 kg/m2 Comm on [facility] oximetry 2022-05-09 11:40:00 94 % Commo n [facility] respiratory rate 2022-05-09 11:40:00 16 /min Common [facility] blood pressure systolic 2022-05-09 11:40:00 136 mm[Hg] Common [facility] blood pressure diastolic 2022-05-09 11:40:00 72 mm[Hg] Common [facility] height 2022-04-17 08:20:00 66 [in_i] Commo n [facility] weight 2022-04-17 08:20:00 145 [lb_av] Comm on [facility] temperature 2022-04-17 08:20:00 97.8 [degF] Com [facility] bmi 2022-04-17 08:20:00 23.4 kg/m2 Commo n [facility] oximetry 2022-04-17 08:20:00 96 % Commo n [facility] respiratory rate 2022-04-17 08:20:00 18 /min Common [facility] blood pressure systolic 2022-04-17 08:20:00 138 mm[Hg] [facility] blood pressure diastolic 2022-04-17 08:20:00 88 mm[Hg] [facility] height 2022-04-03 10:00:00 66.5 [in_i] Comm on [facility] weight 2022-04-03 10:00:00 144.2 [lb_av] Co mmon [facility] temperature 2022-04-03 10:00:00 97.4 [degF] Com mon [facility] bmi 2022-04-03 10:00:00 22.92 kg/m2 Comm on [facility] oximetry 2022-04-03 10:00:00 95 % Commo n [facility] respiratory rate 2022-04-03 10:00:00 18 /min [facility] blood pressure systolic 2022-04-03 10:00:00 139 mm[Hg] [facility] pressure diastolic 2022-04-03 10:00:00 77 mm[Hg] Common [facility] height 2022-03-24 10:20:00 66.5 [in_i] Comm on [facility] weight 2022-03-24 10:20:00 143.6 [lb_av] Co mmon [facility] temperature 2022-03-24 10:20:00 97.3 [degF] Com mon [facility] bmi 2022-03-24 10:20:00 22.83 kg/m2 Comm on [facility] oximetry 2022-03-24 10:20:00 99 % Commo n [facility] respiratory rate 2022-03-24 10:20:00 18 /min Common [facility] blood pressure systolic 2022-03-24 10:20:00 136 mm[Hg] Common Spiri t [facility] blood pressure diastolic 2022-03-24 10:20:00 64 mm[Hg] [facility] height 2021-12-06 10:40:00 66.5 [in_i] Comm on [facility] weight 2021-12-06 10:40:00 139 [lb_av] Comm on [facility] temperature 2021-12-06 10:40:00 98.0 [degF] Com mon [facility] bmi 2021-12-06 10:40:00 22.1 kg/m2 Commo n [facility] oximetry 2021-12-06 10:40:00 94 % Commo n [facility] respiratory rate 2021-12-06 10:40:00 18 /min Common [facility] blood pressure systolic 2021-12-06 10:40:00 136 mm[Hg] [facility] blood pressure diastolic 2021-12-06 10:40:00 88 mm[Hg] Common [facility] height 2021-10-05 08:00:00 66.5 [in_i] Comm on [facility] weight 2021-10-05 08:00:00 141.0 [lb_av] Co mmon [facility] temperature 2021-10-05 08:00:00 97.0 [degF] Com [facility] bmi 2021-10-05 08:00:00 22.41 kg/m2 Comm on [facility] oximetry 2021-10-05 08:00:00 90 % Commo n [facility] respiratory rate 2021-10-05 08:00:00 18 /min [facility] blood pressure systolic 2021-10-05 08:00:00 110 mm[Hg] [facility] blood pressure diastolic 2021-10-05 08:00:00 68 mm[Hg] Common [facility] height 2021-09-27 09:40:00 66.5 [in_i] Comm on [facility] weight 2021-09-27 09:40:00 141 [lb_av] Comm on [facility] temperature 2021-09-27 09:40:00 97.2 [degF] Com [facility] bmi 2021-09-27 09:40:00 22.41 kg/m2 Comm on [facility] oximetry 2021-09-27 09:40:00 95 % Commo n [facility] respiratory rate 2021-09-27 09:40:00 20 /min [facility] blood pressure systolic 2021-09-27 09:40:00 132 mm[Hg] [facility] blood pressure diastolic 2021-09-27 09:40:00 86 mm[Hg] [facility] Systolic blood pressure 2021-07-04 18:48:00 142 mm[Hg] [facility] Diastolic blood pressure 2021-07-04 18:48:00 68 mm[Hg] [facility] Heart rate 2021-07-04 18:48:00 98 /min [facility] Body height 2021-07-04 18:48:00 172.7 cm [facility] Body weight 2021-07-04 18:48:00 65.772 kg [facility] BMI 2021-07-04 18:48:00 22.05 kg/m2 [facility] height 2021-06-29 08:40:00 66.5 [in_i] Comm on [facility] weight 2021-06-29 08:40:00 142 [lb_av] Comm on [facility] temperature 2021-06-29 08:40:00 98.4 [degF] Com mon [facility] bmi 2021-06-29 08:40:00 22.57 kg/m2 Comm on [facility] oximetry 2021-06-29 08:40:00 96 % Commo n [facility] respiratory rate 2021-06-29 08:40:00 20 /min [facility] blood pressure systolic 2021-06-29 08:40:00 130 mm[Hg] [facility] blood pressure diastolic 2021-06-29 08:40:00 82 mm[Hg] [facility] Procedures Procedure Date / Time Performed Performing Clinician Source EXTERNAL PROVIDER RECORDS 2023-05-07 05:01:00 Doctor Unassigned, [place] [facility] EXTERNAL PROVIDER RECORDS 2022-12-05 06:01:00 Doctor Unassigned, [place] [facility] RADIOLOGY DOCUMENTATION 2022-09-27 06:01:00 Doct or Unassigned, [place] [facility] Encounters Start Date/Time End Date/Time Encounter Type Admission Type Attending [facility] Care Department Encounter ID Source 2022-09-04 16:41:00 Outpatient Loretta Kumar STLMLC STLMLC [id number] [facility] 2022-04-13 08:34:00 Outpatient Loretta Kumar STLMLC STLMLC [id number] [facility] 2022-03-30 08:14:01 Outpatient Loretta Kumar STLMLC STLMLC [id number] [facility] 2021-11-02 14:26:11 Outpatient FillmoreLoretta crowley STLMLC STLMLC [id number] [facility] 2021-11-02 13:50:55 Outpatient FillmoreLoretta crowley STLMLC STLMLC [id number] [facility] 2021-11-02 12:42:21 Outpatient Loretta Kumar STLMLC STLMLC [id number] [facility] 2021-11-02 12:41:41 Outpatient Loretta Kumar STLMLC STLMLC [id number] [facility] 2021-11-02 12:15:05 Outpatient FillmoreLoretta crowley STLMLC STLMLC [id number] [facility] 2021-11-02 10:59:19 Outpatient Loretta Kumar STLMLC STLMLC [id number] [facility] 2023-10-16 00:00:00 2023-10-16 00:00:00 OFFICE VISIT ESTAB PT LEVEL 4 STLMLC STLC [id number] [facility] 2023-10-16 00:00:00 2023-10-16 00:00:00 (TEL) STLC STLC [id number] [facility] 2023-05-07 00:00:00 2023-05-07 00:00:00 Orders Only Doctor Unassigned, [place] [facility] [id number] 350.1.13.10 4.2.7.2.686 [id number] [facility] 2023-03-15 00:00:00 2023-03-15 00:00:00 OFFICE VISIT ESTAB PT LEVEL 4 STLMLC STLC [id number] [facility] 2023-03-13 00:00:00 2023-03-13 00:00:00 (TEL) STLC STLC [id number] [facility] 2022-12-05 00:00:00 2022-12-05 00:00:00 Orders Only Doctor Unassigned, [place] [facility] [id number] 350.1.13.10 4.2.7.2.686 [id number] [facility] 2022-10-13 08:15:00 2022-10-13 08:15:00 Outpatient DONNA GUNTER [facility] [id number] [facility] 2022-10-12 08:39:44 2022-10-12 23:59:00 Outpatient DONNA GUNTER [facility] [id number] [facility] 2022-10-12 09:00:00 2022-10-12 09:15:00 Office Visit Donna Wilder [facility] [id number] 350.1.13.10 4.2.7.2.686 [id number] [facility] 2022-10-11 00:00:00 2022-10-11 00:00:00 (TEL) STLC STLC [id number] [facility] 2022-10-11 00:00:00 2022-10-11 00:00:00 SUB ANNUAL [facility] STLMLC STLMLC [id number] [facility] 2022-09-27 14:15:00 2022-09-27 14:45:00 Office Visit Donna Wilder [facility] [id number] 350.1.13.10 4.2.7.2.686 [id number] [facility] 2022-09-27 14:15:00 2022-09-27 14:20:14 Outpatient R DONNA WILDER [facility] [id number] [facility] 2022-09-27 00:00:00 2022-09-27 00:00:00 Orders Only Doctor Unassigned, [place] [facility] [id number] 350.1.13.10 4.2.7.2.686 [id number] [facility] 2022-09-26 00:00:00 2022-09-26 00:00:00 Telephone Katie Delgadillo [facility] [id number] 350.1.13.10 4.2.7.2.686 [id number] [facility] 2022-09-22 00:00:00 2022-09-22 00:00:00 (TEL) STLMLC STLMLC [id number] [facility] 2022-09-18 00:00:00 2022-09-18 00:00:00 (TEL) STLMLC STLMLC [id number] [facility] 2022-09-15 00:00:00 2022-09-15 00:00:00 (TEL) STLMLC STLMLC [id number] [facility] 2022-09-05 00:00:00 2022-09-05 00:00:00 OFFICE VISIT EST PT LEVEL 3 STLMLC STLMLC [id number] [facility] 2022-05-11 00:00:00 2022-05-11 00:00:00 (TEL) STLMLC STLMLC [id number] [facility] 2022-05-09 00:00:00 2022-05-09 00:00:00 OFFICE VISIT EST PT LEVEL 3 STLMLC STLMLC [id number] [facility] 2022-04-17 00:00:00 2022-04-17 00:00:00 OFFICE VISIT EST PT LEVEL 3 STLMLC STLMLC [id number] [facility] 2022-04-03 00:00:00 2022-04-03 00:00:00 OFFICE VISIT EST PT LEVEL 3 STLMLC STLMLC [id number] [facility] 2022-03-24 00:00:00 2022-03-24 00:00:00 OFFICE VISIT EST PT LEVEL 3 STLMLC STLMLC [id number] [facility] 2022-02-03 00:00:00 2022-02-03 00:00:00 (TEL) STLMLC STLMLC [id number] [facility] 2022-02-02 00:00:00 2022-02-02 00:00:00 (TEL) STLMLC STLMLC [id number] [facility] 2022-01-09 00:00:00 2022-01-09 00:00:00 (TEL) STLMLC STLMLC [id number] [facility] 2022-01-05 00:00:00 2022-01-05 00:00:00 (TEL) STLMLC STLMLC [id number] [facility] 2021-12-06 00:00:00 2021-12-06 00:00:00 OFFICE VISIT EST PT LEVEL 3 STLMLC STLMLC [id number] [facility] 2021-10-18 00:00:00 2021-10-18 00:00:00 (TEL) STLMLC STLMLC [id number] [facility] 2021-10-05 00:00:00 2021-10-05 00:00:00 SUB ANNUAL [facility] STLMLC [employer] [id number] [facility] 2021-09-27 00:00:00 2021-09-27 00:00:00 OFFICE VISIT ESTAB PT LEVEL 4 STLMLC STLC [id number] [facility] 2021-07-04 14:00:00 2021-07-04 14:00:00 Outpatient R KATIE DELGADILLO [facility] [id number] [facility] 2021-07-04 13:45:30 2021-07-04 13:58:15 Office Visit Katie Delgadillo [facility] 1..840.114 350.1.13.10 4.2.7.2.686 [id number] [facility] 2021-06-29 00:00:00 2021-06-29 00:00:00 OFFICE VISIT ESTAB PT LEVEL 4 [employer] [id number] [facility] 2021-06-23 09:43:49 2021-06-23 23:59:00 Hospital Encounter Melissa Horowitz [facility] Denis?[facility] 1.84.114 350.1.13.10 4.2.7.2.686 [id number] [facility] 2021-06-23 09:43:48 2021-06-23 23:59:00 Hospital Encounter Melissa Horowitz [facility] Denis?[facility] 1..840.114 350.1.13.10 4.2.7.2.686 [id number] [facility] 2021-06-23 09:28:00 2021-06-23 10:30:45 Urgent Care EbMelissa gomez Parminder Nicole [facility] Denis?[facility] 1.84.114 350.1.13.10 4.2.7.2.686 [id number] [facility] 2021-06-23 09:20:00 2021-06-23 09:20:00 Outpatient R [facility] [id number] [facility] 2021-06-23 00:00:00 2021-06-23 00:00:00 Orders Only Doctor Unassigned, [place] [facility] 1.2.840.114 350.1.13.10 4.2.7.2.686 [id number] [facility] 2021-05-27 00:00:00 2021-05-27 00:00:00 (TEL) STLMLC STLMLC [id number] [facility] 2021-03-30 00:00:00 2021-03-30 00:00:00 Outpatient STLMLC STLMLC [id number] [facility] 2021-03-29 00:00:00 2021-03-29 00:00:00 Outpatient STLMLC STLMLC [id number] [facility] 2021-03-09 00:00:00 2021-03-09 00:00:00 Outpatient STLMLC STLMLC [id number] [facility] 2021-02-10 00:00:00 2021-02-10 00:00:00 Outpatient STLMLC STLMLC [id number] [facility] 2021-01-20 00:00:00 2021-01-20 00:00:00 Outpatient STLMLC STLMLC [id number] [facility] 2020-12-28 00:00:00 2020-12-28 00:00:00 Outpatient STLMLC STLMLC [id number] [facility] 2020-12-23 00:00:00 2020-12-23 00:00:00 Outpatient STLMLC STLMLC [id number] [facility] 2020-11-04 00:00:00 2020-11-04 00:00:00 Outpatient STLMLC STLMLC [id number] [facility] 2020-10-11 00:00:00 2020-10-11 00:00:00 Outpatient STLMLC STLMLC [id number] [facility] 2020-09-29 00:00:00 2020-09-29 00:00:00 Outpatient STLMLC STLMLC [id number] [facility] 2020-08-12 00:00:2020-08-12 00:00:00 Outpatient STLMLC STLMLC [id number] [facility] 2020-06-29 00:00:00 2020-06-29 00:00:00 Outpatient STLMLC STLMLC [id number] [facility] 2020-06-15 10:20:00 2020-06-15 10:20:00 [facility] [id number] [facility] 2020-06-15 09:40:00 2020-06-15 09:40:00 Outpatient [facility] [id number] [facility] 2020-04-29 09:45:00 2020-04-29 09:45:00 Outpatient DONNA GUNTER [facility] [id number] [facility] 2020-04-22 08:30:00 2020-04-22 08:30:00 Outpatient DONNA GUNTER [facility] [id number] [facility] 2020-04-12 08:40:00 2020-04-12 08:40:00 [facility] [id number] [facility] 2020-01-15 10:00:00 2020-01-15 10:00:[address] [facility] [facility] [id number] [facility] 2019-10-16 08:00:00 2019-10-16 08:00:00 Outpatient [facility] [id number] [facility] 2019-09-08 10:40:00 2019-09-08 10:40:00 Outpatient [facility] [id number] [facility] 2019-07-01 09:00:00 2019-07-01 09:00:00 Outpatient [facility] [id number] [facility]
[2023-11-12 12:27] LABS: Absolute Lymphocytes (CBC) 1.1 K/uL (0.7-4.9); Hematocrit 41.4 % (36.0-45.0); Lymphocytes % 26.6 % (15.3-44.8); MCV 97.2 fL (80-100); MPV 7.7 fL (7.6-11.3); Platelets 181 thou/uL (152-406); RBC Red Blood Cell Count 4.26 M/uL (3.86-4.86)
[2023-11-12 12:28] LABS: Protime INR 1.06
[2023-11-12 12:35] LABS: Specific Gravity 1.013 (1.005-1.030); Urine Bacteria None Seen /HPF (<20); Urine Bilirubin NEGATIVE (Negative); Urine Blood Trace (Negative); Urine Clarity Turbid (Clear); Urine Color Light-Yellow (Yellow); Urine Glucose NEGATIVE (Negative); Urine Mucus Slight /HPF (None Seen); Urine Protein NEGATIVE (Negative); Urine RBC <5 /HPF (None Seen); Urine Urobilinogen Normal (Normal); Urine pH 6.5 (5.0-7.0)
--- NOTE | 2023-11-12 12:45 | RAD REPORT ---
EXAM DESCRIPTION: Elissa Single View11/12/2023 12:29 pm CLINICAL HISTORY: Chest pain COMPARISON: 2021 FINDINGS: Bilateral breast implants 6 millimeter nodular opacity overlies the mid right lung Brain lungs appear clear of acute infiltrate. Heart is normal size. Neurostimulator device in place IMPRESSION: 6 millimeter nodular opacity overlying the mid right lung. It is recommended that the pa tient have PA and lateral chest films to help determine if this represents a pulmonary nodule
[2023-11-12 12:47] LABS: ALT/SGPT 16 U/L (13-56); AST/SGOT 23 U/L (15-37); Albumin 3.5 g/dL (3.4-5.0); Alkaline Phosphatase 70 U/L (45-117); BUN Blood Urea Nitrogen 7 mg/dL (7-18); Bicarbonate 30 mEq/L (21-32); Bilirubin Total 0.3 mg/dL (0.2-1.0); Glomerular Filtration Rate 77 ml/min (=/>90); Glucose Level 75 mg/dL (74-106); Magnesium 2.2 mg/dL (1.6-2.4); NT PRO-BNP 1203 pg/mL (<450); Potassium 3.7 mEq/L (3.5-5.1); Protein, Total 6.7 g/dL (6.4-8.2); Sodium Level 133 mEq/L (136-145); Troponin High Sensitivity 7.9 pg/mL (<58.9)
[2023-11-12 12:49] LABS: Bilirubin Direct < 0.1 mg/dL (0-0.2); Bilirubin Indirect, Calculated ND mg/dL (0.2-0.8)
[2023-11-12 13:13] LABS: Blood Morphology Comment NOT SEEN (NOT SEEN); Platelet Estimate ADEQ
--- NOTE | 2023-11-12 14:45 | RAD REPORT ---
EXAM DESCRIPTION: CT - Chest For Pe Angio - 11/12/2023 1:32 pm CLINICAL HISTORY: CHEST PAIN COMPARISON: Lung Cancer Screening CT W/O dated 06/06/2019 TECHNIQUE: Thin axial CT images of the chest were obtained following administration of 100 mL Isovue 370 IV contrast. Multiplanar reconstructions, and maximum intensity projection reconstructions were generated and reviewed. Exam utilizes a protocol for optimal evaluation of pulmonary arterial tree. All CT scans are performed using dose optimization technique as appropriate and may include automated exposure control or mA/KV adjustment according to patient size. FINDINGS: Pulmonary arteries are well opacified. No emboli or other suspicious finding. No acute or significant aorta findings. Right middle lobe irregular mass within and around adjacent smaller component anteriorly, collectivel y measuring 2.3 x 2.4 cm, demonstrating some tethering along the major fissure. Ovoid solid 7 mm nodu le on axial image 79 in the lower aspect of the right upper lobe, has increased in size from 4 mm on the comparison CT. A peribronchovascular triangular 8 mm nodule in the upper lobe more medially on ax ial image 76 is new. A peribronchovascular sub solid 5 mm peripheral basilar right lower lobe nodule on axial image 31 is new as well. Other scattered 2-3 mm nodules, many of which may be stable, allowi ng for differences in technique. Background moderate centrilobular emphysematous changes No pleural t hickening or pleural effusion. No pneumothorax. Mildly prominent mediastinal lymph nodes largest in the subcarinal region measuring 1 cm in short axi s. Mildly prominent right hilar lymph nodes measuring up to 9 mm in short axis. These are nonspecific . No chest wall mass or abnormal axilliary lymphadenopathy. IMPRESSION: No evidence of acute central pulmonary emboli. Right middle lobe irregular 2.4 cm mass, with numerous other small new or enlarging right upper and l ower lobe nodules as detailed above. Findings are concerning for a primary lung malignancy, with othe r smaller nodules likely related to metastatic spread. Mildly prominent mediastinal and right hilar lymph nodes, favored to be metastatic as well.
[2023-11-12] MEDS ORDERED: NA CHLORIDE 0.9% 250 ML ONE (14:57)
--- NOTE | 2023-11-12 15:44 | EDPHYS ---
Physician Documentation [facility] – [place], [place] Name: Lidia Wall Age: 77 yrs Sex: Female : 1945 Arrival Date: 11/12/2023 Time: 11:18 Bed 20 Private MD: ED Physician Brennon Phillips HPI: 11/12 11:50 This 77 yrs old Female presents to ER via Wheelchair with complaints of Blood Pressure cp Problem. 11:50 Patient presents to to ED with c/o general weakness, low blood pressure and "not cp feeling well" over past 3 days. No fever, no shortness of breath. Reports having intermittent chest pain since yesterday. Historical: - Allergies: 11:40 NKDA; ko1 - Home Meds: 11:45 topiramate 50 mg Oral CSpX 1 cap once daily [Active]; Symbicort 160-4.5 mcg/actuation bp inhalation HFAA 2 puffs 2 times per day [Active]; rosuvastatin 10 mg Oral tab 1 tab once daily [Active]; Plavix 75 mg Oral tab 1 tab once daily [Active]; paroxetine HCl 25 mg Oral Tb24 1 tab once daily [Active]; Microzide 12.5 mg Oral cap 1 cap once daily [Active]; Lasix 40 mg Oral tab 1 tab 2 times per day [Active]; albuterol sulfate 90 mcg/actuation inhalation HFA Aerosol Inhaler [Active]; - PMHx: 11:40 COPD; CVA; Hyperlipidemia; Hypertension; ko1 - Immunization history:: Adult Immunizations up to date. - Social history:: Smoking status: Patient denies any tobacco usage or history of. ROS: 11:55 Constitutional: Positive for body aches, poor PO intake, Negative for fever, cp 11:55 Eyes: Negative for injury, pain, redness, and discharge, cp 11:55 ENT: Negative for drainage from ear(s), ear pain, sore throat, difficulty swallowing, difficulty handling secretions, 11:55 Neck: Negative for pain with movement, pain at rest, stiffness, 11:55 Cardiovascular: Positive for chest pain, Negative for palpitations, 11:55 Respiratory: Negative for cough, shortness of breath, wheezing, 11:55 Abdomen/GI: Positive for decreased appetite, Negative for abdominal pain, vomiting, diarrhea, constipation, 11:55 Back: Negative for pain at rest, pain with movement, 11:55 Skin: Negative for rash, 11:55 Neuro: Positive for weakness, Negative for altered mental status, loss of consciousness, syncope, 11:55 All other systems are negative, Exam: 12:00 Constitutional: The patient appears in no acute distress, alert, awake, cp non-diaphoretic, non-toxic, well developed, well nourished, obviously ill, 12:00 Head/Face: Normocephalic, atraumatic. cp 12:00 Eyes: Periorbital structures: appear normal, Pupils: equal, round, and reactive to light and accomodation, Extraocular movements: intact throughout, Conjunctiva: normal, no exudate, no injection, Sclera: no appreciated abnormality, Lids and lashes: appear normal, bilaterally, 12:00 ENT: External ear(s): are unremarkable, Nose: is normal, Mouth: Lips: dry, Oral mucosa: dry, Posterior pharynx: Airway: no evidence of obstruction, patent, erythema, that is mild, exudate, is not appreciated, 12:00 Neck: ROM/movement: is normal, is supple, no meningismus, no nuchal rigidity, 12:00 Chest/axilla: Inspection: normal, 12:00 Cardiovascular: Rate: bradycardic, Rhythm: regular, Edema: ankle edema, that is very mild, JVD: is not appreciated, 12:00 Respiratory: the patient does not display signs of respiratory distress, Respirations: labored breathing, is not present, shallow respirations, that is mild, Breath sounds: decreased breath sounds, that are mild, throughout, stridor, is not appreciated, wheezing: is not appreciated, 12:00 Abdomen/GI: Inspection: abdomen appears normal, Palpation: abdomen is soft and non-tender, in all quadrants, 12:00 Back: CVA tenderness, is absent, 12:00 Skin: mild general erythema of lower legs and feet. 12:00 Neuro: Orientation: to person, place \\T\\ time. Mentation: able to follow commands, slow to respond, Motor: moves all fours, no focal deficits, Sensation: no obvious gross deficits, 12:37 ECG was reviewed by the Attending Physician. cp Vital Signs: 11:34 BP 105 / 56; Pulse 52; Resp 15; Temp 99.4(T); Pulse Ox 96% ; ko1 14:13 BP 181 / 82; Pulse 45; Resp 16; Pulse Ox 100% ; bp 15:08 BP 178 / 85; Pulse 48; Resp 16; Pulse Ox 99% ; bp 16:04 BP 174 / 81; Pulse 55; Resp 16; Pulse Ox 98% ; bp 16:40 BP 165 / 61; Pulse 66; Resp 16; Pulse Ox 100% ; bp MDM: 11:45 Patient medically screened. cp 15:45 Data reviewed: vital signs, nurses notes, lab test result(s), EKG, radiologic studies, cp CT scan, plain films. 15:45 Management of patient was discussed with the following: Hospitalist: Terri BOWSER will cp admit to DR Manzano after discussion. Independent interpretation of the following test(s) in the Emergency Department EKG: See my EKG interpretation above. Care significantly affected by the following chronic conditions: Hypertension, Congestive Heart Failure, Chronic Obstructive Pulmonary Disease. Response to treatment: the patient's symptoms have mildly improved after treatment. 02 11:49 Order name: Basic Metabolic Panel; Complete Time: 13:16 cp 02/ 13:16 Interpretation: Normal except: NA 133; GFR 77. cp / 11:49 Order name: CBC with Diff; Complete Time: 13:16 cp 02/ 13:16 Interpretation: Normal except: MN% 22.0. cp / 11:49 Order name: LFT's; Complete Time: 13:16 cp 02/ 11:49 Order name: Magnesium; Complete Time: 13:16 cp 11/12 11:49 Order name: NT PRO-BNP; Complete Time: 13:16 cp 02/05 13:16 Interpretation: Abnormal: NT PRO-BNP 1203. cp 11/12 11:49 Order name: PT-INR; Complete Time: 13:16 cp 02/ 11:49 Order name: Troponin HS; Complete Time: 13:16 cp 02/05 13:17 Interpretation: Troponin HS 7.9; Reviewed. cp 02 11:49 Order name: Urinalysis W/Microscopic; Complete Time: 13:16 cp 02/05 13:16 Interpretation: Normal except: [facility] Turbid; UBLD Trace. cp 11/12 11:49 Order name: COVID-19 SARS RT PCR; Complete Time: 13:16 cp 02/ 15:18 Interpretation: Reviewed. 11/12 11:49 Order name: Influenza Screen (a \\T\\ B); Complete Time: 13:16 11/12 14:21 Interpretation: Reviewed. 11/12 11:49 Order name: Lactate w/ 2H reflex if indic.; Complete Time: 13:16 11/12 13:17 Interpretation: Reviewed. 11/12 12:31 Order name: Manual Differential; Complete Time: 13:16 EDOK 11/12 11:49 Order name: XRAY Chest (1 view); Complete Time: 13:16 11/12 13:20 Order name: CT Chest For PE Angio; Complete Time: 14:50 11/12 14:53 Interpretation: Report reviewed. 11/12 11:49 Order name: EKG; Complete Time: 11:50 11/12 16:05 Order name: CONS Physician Consult EDOK 11/12 11:49 Order name: Cardiac monitoring; Complete Time: 11:58 11/12 11:49 Order name: EKG - Nurse/Tech; Complete Time: 12:48 11/12 11:49 Order name: IV Saline Lock; Complete Time: 12:16 11/12 11:49 Order name: Labs collected and sent; Complete Time: 12:16 11/12 11:49 Order name: O2 Per Protocol; Complete Time: 11:58 11/12 11:49 Order name: O2 Sat Monitoring; Complete Time: 11:58 11/12 14:10 Order name: Vital Signs; Complete Time: 14:13 cp EC:37 Rate is 45 beats/min. Rhythm is regular. LA interval is normal. QRS interval is normal. cp QT interval is prolonged. Interpreted by me. Reviewed by me. Administered Medications: 15:05 Drug: NS 0.9% IV 250 ml IV at 250 ml/hr once Route: IV; Rate: 250 ml/hr; Site: right bp antecubital; 16:46 Follow up: IV Status: Completed infusion; IV Intake: 250ml bp 15:53 Drug: hydrALAZINE IVP 5 mg IVP once Route: IVP; Site: right antecubital; bp 16:46 Follow up: Response: No adverse reaction bp Disposition Summary: 11/12/23 15:44 Hospitalization Ordered Notes: Hospitalization Status: Observation cp Provider: Ruddy Manzano cp Location: Telemetry/MedSurg (observation) cp Condition: Stable cp Problem: new cp Symptoms: have improved cp Bed/Room Type: Standard cp Room Assignment: 232(11/12/23 16:12) bd Diagnosis - Chest pain, unspecified cp - SARS-associated coronavirus as the cause of diseases classified elsewhere cp - Weakness cp Forms: - Medication Reconciliation Form cp - SBAR form cp - Leadership Thank You Letter cp Signatures: Dispatcher [employer] EDMS Niki Boone bd Brennon Murillo PA PA cp Peltier, Brian, RN RN bp Lena Amin RN RN ko1 Corrections: (The following items were deleted from the chart) 16:12 15:44 cp bd 11/13 16:13 11/12 15:45 Management of patient was discussed with the following: Hospitalist: pascual Murray ACCOUNTS RECEIVABLE ADMINISTRATOR will admit to DR Salguero after discussion. cp
--- NOTE | 2023-11-12 15:44 | ER ---
Nurse's Notes [facility] Name: Lidia Wall Age: 77 yrs Sex: Female : 1945 Arrival Date: 11/12/2023 Time: 11:18 Bed 20 Private MD: Diagnosis: Chest pain, unspecified;SARS-associated coronavirus as the cause of diseases classified elsewhere;Weakness Presentation: 11/12 11:34 Chief complaint: Patient states: not feeling well for 3 days, just wants to sleep and ko1 blood pressure has been lower than her normal. Coronavirus screen: At this time, the client does not indicate any symptoms associated with coronavirus-19. Ebola Screen: No symptoms or risks identified at this time. Initial Sepsis Screen: Does the patient meet any 2 criteria? No. Patient's initial sepsis screen is negative. Does the patient have a suspected source of infection? No. Patient's initial sepsis screen is negative. Risk Assessment: Do you want to hurt yourself or someone else? Patient reports no desire to harm self or others. Onset of symptoms is unknown. 11:34 Method Of Arrival: Wheelchair ko1 11:34 Acuity: EMILY 3 ko1 Triage Assessment: 11:40 General: Appears in no apparent distress. Behavior is calm, cooperative, appropriate ko1 for age. Pain: Denies pain. Historical: - Allergies: 11:40 NKDA; ko1 - Home Meds: 11:45 topiramate 50 mg Oral CSpX 1 cap once daily [Active]; Symbicort 160-4.5 mcg/actuation bp inhalation HFAA 2 puffs 2 times per day [Active]; rosuvastatin 10 mg Oral tab 1 tab once daily [Active]; Plavix 75 mg Oral tab 1 tab once daily [Active]; paroxetine HCl 25 mg Oral Tb24 1 tab once daily [Active]; Microzide 12.5 mg Oral cap 1 cap once daily [Active]; Lasix 40 mg Oral tab 1 tab 2 times per day [Active]; albuterol sulfate 90 mcg/actuation inhalation HFA Aerosol Inhaler [Active]; - PMHx: 11:40 COPD; CVA; Hyperlipidemia; Hypertension; ko1 - Immunization history:: Adult Immunizations up to date. - Social history:: Smoking status: Patient denies any tobacco usage or history of. Screenin:00 [facility] ED Fall Risk Assessment (Adult) History of falling in the last 3 months, bp including since admission No falls in past 3 months (0 pts). Abuse screen: Denies threats or abuse. Denies injuries from another. Nutritional screening: No deficits noted. Tuberculosis screening: No symptoms or risk factors identified. Assessment: 12:00 General: SEE TRIAGE NOTE. bp 14:00 Reassessment: No changes from previously documented assessment. Patient is alert, bp oriented x 3, equal unlabored respirations, skin warm/dry/pink. 15:09 Reassessment: Patient appears in no apparent distress at this time. Patient is alert, bp oriented x 3, equal unlabored respirations, skin warm/dry/pink. 16:05 Reassessment: ADMIT INITIATED. bp Vital Signs: 11:34 BP 105 / 56; Pulse 52; Resp 15; Temp 99.4(T); Pulse Ox 96% ; ko1 14:13 BP 181 / 82; Pulse 45; Resp 16; Pulse Ox 100% ; bp 15:08 BP 178 / 85; Pulse 48; Resp 16; Pulse Ox 99% ; bp 16:04 BP 174 / 81; Pulse 55; Resp 16; Pulse Ox 98% ; bp 16:40 BP 165 / 61; Pulse 66; Resp 16; Pulse Ox 100% ; bp ED Course: 11:20 Patient arrived in ED. mr 11:25 Brennon Murillo PA is PHCP. cp 11:25 Brennon Phillips MD is Attending Physician. cp 11:40 Triage completed. ko1 11:40 Arm band placed on right wrist. Patient placed in an exam room, on a stretcher, on ko1 desk monitor, on pulse oximetry, Patient notified of wait time. 12:00 Christopher Hankins, REAL is Primary Nurse. bp 12:00 Patient has correct armband on for positive identification. bp 12:16 Inserted saline lock: 22 gauge in right antecubital area, using aseptic technique. bp Blood collected. 12:31 XRAY Chest (1 view) In Process Unspecified. EDMS 13:34 CT Chest For PE Angio In Process Unspecified. EDMS 15:00 IV discontinued. bp 15:30 Inserted saline lock: 24 gauge in right wrist, using aseptic technique. bp 15:42 Ruddy Manzano MD is Hospitalizing Provider. cp 16:44 No provider procedures requiring assistance completed. bp Administered Medications: 15:05 Drug: NS 0.9% IV 250 ml IV at 250 ml/hr once Route: IV; Rate: 250 ml/hr; Site: right bp antecubital; 16:46 Follow up: IV Status: Completed infusion; IV Intake: 250ml bp 15:53 Drug: hydrALAZINE IVP 5 mg IVP once Route: IVP; Site: right antecubital; bp 16:46 Follow up: Response: No adverse reaction bp Intake: 16:46 IV: 250ml; Total: 250ml. bp Outcome: 15:44 Decision to Hospitalize by Provider. cp 16:44 Admitted to Tele accompanied by tech, family with patient, via stretcher, room 232, bp with chart, Report called to HIEU NOBLE 16:44 Condition: stable 16:44 Instructed on the need for admit, 17:23 Patient left the ED. as6 Signatures: Dispatcher [employer] EDMS Ronel Clifford, Reg Reg mr Brennon Murillo, PA PA cp Christopher Hankins, REAL RN bp Riccardo Jaquez, REAL RN as6 Lena Amin, REAL RN ko1
[2023-11-12] MEDS ORDERED: HYDRALAZINE HCL 20 MG/ML VIAL ONE (15:46)
--- NOTE | 2023-11-12 16:16 | P.HP ---
Certification for Inpatient Patient admitted to: Inpatient With expected LOS: <2 Midnights <Terri Lancaster - Last Filed: 11/12/23 16:10> Patient History Date of Service: 11/12/23 History of Present Illness: 77-year-old female with a past medical history of COPD, CVA, hypertension, hyperlipidemia presents to the emergency room with elevated blood pressure and chest pain. CT of the chest for PE chest x-ray pulmonary nodules over the right lung, laboratory evaluation mild hyponatremia, WBCs unremarkable, elevated BNP 1203, COVID-positive PCR, flu AMB negative troponin negative, lactate normal - Past Medical/Surgical History Diabetic: No -: CVA -: COPD -: Hypertension -: High cholesterol -: back surg -: hysterectomy -: neck surg - Social History Alcohol use: Yes CD- Drugs: No Caffeine use: Yes <Terri Lancaster - Last Filed: 11/12/23 16:10> Date of Service: 11/12/23 <Ruddy Manzano - Last Filed: 11/12/23 17:36> Allergies No Known Allergies Allergy (Unverified 11/12/23 17:27) Home Medications: Clopidogrel Bisulfate [Plavix] 1 tab PO DAILY 02/01/16 Simvastatin [Zocor*] 20 mg PO DAILY 02/01/16 lisinopriL [Prinivil*] 20 mg PO DAILY 02/01/16 Albuterol Sulfate [Proair Hfa] 2 puff IH Q6HR PRN 10/27/19 Fluticasone/Umeclidin/Vilanter [Trelegy Ellipta 100-62.5-25] 1 each IH DAILY 10/27/19 Furosemide [Lasix] 40 mg PO EVERY 3RD DAY 10/27/19 oxyBUTYnin chloride [Oxybutynin Chloride] 5 mg PO BID 01/14/21 Review of Systems per HPI <Terri Lancaster - Last Filed: 11/12/23 16:10> Physical Examination - Studies Laboratory Data (last 24 hrs) 11/12/23 11/12/23 11/12/23 12:12 12:12 12:12 WBC 4.30 Hgb 14.1 Hct 41.4 Plt Count 181 PT 11.6 INR 1.06 Sodium 133 L Potassium 3.7 BUN 7 Creatinine 0.80 Glucose 75 Magnesium 2.2 Total Bilirubin 0.3 AST 23 ALT 16 Alkaline Phosphatase 70 Microbiology Data (last 24 hrs): 11/12/23 12:12 Nasopharnyx Influenza Type A Antigen Screen - Final 11/12/23 12:12 Nasopharnyx Influenza Type B Antigen Screen - Final <Terri Lancaster - Last Filed: 11/12/23 16:10> - Studies Laboratory Data (last 24 hrs) 11/12/23 11/12/23 11/12/23 12:12 12:12 12:12 WBC 4.30 Hgb 14.1 Hct 41.4 Plt Count 181 PT 11.6 INR 1.06 Sodium 133 L Potassium 3.7 BUN 7 Creatinine 0.80 Glucose 75 Magnesium 2.2 Total Bilirubin 0.3 AST 23 ALT 16 Alkaline Phosphatase 70 Microbiology Data (last 24 hrs): 11/12/23 12:12 Nasopharnyx Influenza Type A Antigen Screen - Final 11/12/23 12:12 Nasopharnyx Influenza Type B Antigen Screen - Final <Ruddy Manzano C - Last Filed: 11/12/23 17:36> Assessment and Plan - Plan Assessment plan COVID-positive COPD Chest pain Elevated BNP Pulmonary nodules Pulmonary consult, O2 2 L keep sats greater than 92%, as needed nebs CT of the chest for PE chest x-ray pulmonary nodules over the right lung, laboratory evaluation mild hyponatremia, WBCs unremarkable, elevated BNP 1203, COVID-positive PCR, flu AMB negative troponin negative, lactate normal Elevated BNP Trend BMP History of hypertension History of hyperlipidemia History of CVA Resume appropriate home DVT Lovenox Full code Diet cardiac Discharge Plan: Home - Advance Directives Does patient have a Living Will: Yes Does patient have a Durable POA for Healthcare: Yes Critical Care: No Time Spent Managing Pts Care (In Minutes): 55 <Terri Lancaster - Last Filed: 11/12/23 16:10> - Plan Pt seen and examined. I agree with the note by the HEAD OF SALES. Pt is a 77 yo female with past medical history of COPD, CVA, hypertension, and hyperlipidemia who presents to the emergency room with elevated blood pressure and chest pain. 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 Her daughter reports uncontrolled BP and pt feeling unwell over the past 3 days. Today pt was very lethargic and in deep sleep that it took vigorous shaking to wake her up. Her daughter brought her to the ER for evaluation. On admission, lab studies show WBC 4.3, Hgb 14.1, NA 133, K 3.7, Cr 0.8, BNP 1203, troponin 7.9, CXR shows 6mm nodular opacity in the rightlung. CT chest shows 2.4 cm RML irregular mass with other small nodules in the RLL and RUL. It is concerning for malignancy. Pt is a smoker. She sees Dr. Perez for COPD. At bedside, pt is in NAD. A/P: Chest pain: Will r/o ACS. Troponin is 7.9. Will trend troponin Q6h. Likely due to uncontrolled htn. COVID 19: Will continued enhanced respprecaution, Decadron, vitamin D, vitamin C and zinc sulfate. Consulted Pulm 2.4cm RML irregular mass: Will consult Dr. Perez for bronch or lung biopsy. Hx of COPD: Stable. Will continue prn duoneb and oxygen. Hx of CVA; Continue home ed Htn: Continue home med HLD: statin DVT ppx: SCD Code: full <Ruddy Manzano - Last Filed: 11/12/23 17:36>
[2023-11-12] MEDS ORDERED: ALPRAZOLAM 0.25 MG TABLET PO PRN (17:22)
[2023-11-12] MEDS ORDERED: ALBUTEROL 2.5 MG/3 ML NEB SOL NEB PRN (17:22)
[2023-11-12] MEDS ORDERED: ONDANSETRON 4 MG/2 ML VIAL IV PRN (17:22)
[2023-11-12 17:43] VITALS: BMI 21.1
[2023-11-12] MEDS: ACETAMINOPHEN 500 MG TAB PO PRN (18:34)
[2023-11-12] MEDS ORDERED: INFLUENZA VACCINE (for 6+ mo) 0.5 ML DOSE IMVAC ONE (19:00)
--- NOTE | 2023-11-12 19:02 | P.PN ---
Subjective Date of Service: 11/12/23 Physical Examination - Vital Signs Temperature: 98.5 F Blood Pressure: 157/69 Pulse: 63 Respirations: 20 Pulse Ox (%): 100 - Physical Exam General: Alert, In no apparent distress, Oriented x3 HEENT: Atraumatic, Normocephalic Neck: Supple, 2+ carotid pulse no bruit Respiratory: Normal air movement, Expiratory wheezes, Inspiratory wheezes Cardiovascular: No edema, Normal pulses Gastrointestinal: Normal bowel sounds, Soft and benign Musculoskeletal: No clubbing, No swelling Integumentary: No rashes, No breakdown Neurological: Normal speech, Normal strength at 5/5 x4 extr - Studies Laboratory Data (last 24 hrs) 11/12/23 11/12/23 11/12/23 12:12 12:12 12:12 WBC 4.30 Hgb 14.1 Hct 41.4 Plt Count 181 PT 11.6 INR 1.06 Sodium 133 L Potassium 3.7 BUN 7 Creatinine 0.80 Glucose 75 Magnesium 2.2 Total Bilirubin 0.3 AST 23 ALT 16 Alkaline Phosphatase 70 Microbiology Data (last 24 hrs): 11/12/23 12:12 Nasopharnyx Influenza Type A Antigen Screen - Final 11/12/23 12:12 Nasopharnyx Influenza Type B Antigen Screen - Final Assessment And Plan - Plan Assessment plan COVID-positive COPD Chest pain Elevated BNP Pulmonary nodules Pulmonary consult, O2 2 L keep sats greater than 92%, as needed nebs CT of the chest for PE chest x-ray pulmonary nodules over the right lung, laboratory evaluation mild hyponatremia, WBCs unremarkable, elevated BNP 1203, COVID-positive PCR, flu AMB negative troponin negative, lactate normal Elevated BNP Trend BMP History of hypertension History of hyperlipidemia History of CVA Resume appropriate home DVT Lovenox Full code Diet cardiac
[2023-11-13] MEDS: ACETAMINOPHEN 500 MG TAB PO PRN (03:22)
[2023-11-13 06:44] LABS: Absolute Lymphocytes (CBC) 1.2 K/uL (0.7-4.9); Hematocrit 40.7 % (36.0-45.0); Lymphocytes % 32.2 % (15.3-44.8); MCV 96.6 fL (80-100); MPV 7.7 fL (7.6-11.3); Platelets 153 thou/uL (152-406); RBC Red Blood Cell Count 4.21 M/uL (3.86-4.86)
[2023-11-13 07:00] LABS: Magnesium 2.2 mg/dL (1.6-2.4); Potassium 3.6 mEq/L (3.5-5.1)
[2023-11-13 08:56] VITALS: O2SAT 97
[2023-11-13] MEDS ORDERED: VITAMIN D 1000 UNIT TAB PO SCH (09:00)
[2023-11-13] MEDS ORDERED: POTASSIUM CL SA 10 MEQ TAB PO ONE (09:00)
[2023-11-13] MEDS ORDERED: ZINC SULFATE 220 MG CAP PO SCH (09:00)
[2023-11-13] MEDS ORDERED: dexAMETHasone 10 MG/ML VIAL IV SCH (09:00)
[2023-11-13] MEDS ORDERED: ASCORBIC ACID 500 MG TABLET PO SCH (09:00)
[2023-11-13] MEDS ORDERED: METHYLPREDNISOLONE 125 MG INJ IV SCH (09:51)
[2023-11-13] MEDS ORDERED: NIRMATRELVIR/RITONAVIR TABLET PO SCH ×2 (10:00→21:00)
--- NOTE | 2023-11-13 12:15 | P.CNS ---
Date of Consult: 11/13/23 Reason for Consult: Solitary pulmonary nodule in the right lung Chief Complaint: Feeling sleepy History of Present Illness: Patient is 77 years of age for 3 days she has been complaining of increasing sleepiness and been feeling well denies a history of COPD active smoker eyes any other complaints is compliant with the Trelegy and an inhaler still continues to smoke was found to have right mid zone solitary pulmonary nodule patient back at her baseline Allergies No Known Allergies Allergy (Unverified 11/12/23 17:27) Home Medications: Clopidogrel Bisulfate [Plavix] 1 tab PO DAILY 02/01/16 Albuterol Sulfate [Proair Hfa] 2 puff IH Q6HR PRN 10/27/19 Fluticasone/Umeclidin/Vilanter [Trelegy Ellipta 100-62.5-25] 1 each IH BID 10/27/19 oxyBUTYnin chloride [Oxybutynin Chloride] 5 mg PO BID 01/14/21 Bupropion *Xl* [Wellbutrin XL*] 1 tab PO BID 11/12/23 Clopidogrel Bisulfate [Plavix*] 1 tab PO DAILY 11/12/23 Metoprolol Tartrate [Lopressor] 50 mg PO BID 11/12/23 Paroxetine HCl [Paxil Cr] 25 mg PO DAILY 11/12/23 Rosuvastatin [Crestor] 20 mg PO DAILY 11/12/23 - Past Medical/Surgical History Diabetic: No -: CVA -: COPD -: Hypertension -: High cholesterol -: back surg -: hysterectomy -: neck surg -: TENS placement - Social History Smoking Status: Current every day smoker Alcohol use: Yes CD- Drugs: No Caffeine use: Yes Place of Residence: Home Review of Systems 10-point ROS is otherwise unremarkable General: Weakness Respiratory: Shortness of Breath Physical Examination Temp Pulse Resp BP Pulse Ox 98.9 F 68 18 142/66 H 95 11/13/23 04:00 11/13/23 04:00 11/13/23 04:00 11/13/23 04:00 11/13/23 04:00 General: Alert, Oriented x3 HEENT: Atraumatic Neck: Supple Respiratory: Clear to auscultation bilaterally, Diminished Cardiovascular: No edema, Regular rate/rhythm, Normal S1 S2 Gastrointestinal: Normal bowel sounds, Soft and benign Laboratory Data (last 24 hrs) 11/12/23 11/12/23 11/12/23 12:12 12:12 12:12 WBC 4.30 Hgb 14.1 Hct 41.4 Plt Count 181 PT 11.6 INR 1.06 Sodium 133 L Potassium 3.7 BUN 7 Creatinine 0.80 Glucose 75 Magnesium 2.2 Total Bilirubin 0.3 AST 23 ALT 16 Alkaline Phosphatase 70 - Problems (1) Abnormal chest x-ray Current Visit: Yes Status: Acute Plan: Patient is 77 years of age admitted with lower lobe solitary pulmonary nodule very suspicious of lung cancer patient has a history of COPD active smoking prior history of lung cancer admitted with hypersomnia patient's chemistries are unremarkable bicarbonate level is normal I doubt that patient is retaining CO2 oxygen saturation is satisfactory tested positive for coronavirus infection she is on trilogy at home and to discharge the patient will need an outpatient workup will include pulmonary function testing a PET scan need to be referred for possible biopsy mildly prominent hilar node discussed with radiology here we will plan to refer patient for CT-guided needle biopsy as an outpatient patient is on Plavix will need to be stopped for a week prior to biopsy
--- NOTE | 2023-11-13 12:58 | EKG ---
Test Date: 2023-11-12 Test Time: 12:30:56 Finisher Screwdown: BP MEASUREMENT RESULTS: Intervals: Rate: 45 DC: 168 QRSD: 90 QT: 604 QTc: 522 [place]: P: 71 DC: 168 QRS: 78 T: 32 INTERPRETIVE STATEMENTS: Marked sinus bradycardia Septal infarct, age undetermined Prolonged QT Abnormal ECG Compared to ECG 12/30/2021 08:57:05 Prolonged QT interval now present Myocardial infarct finding still present Electronically Signed On 11-13-23 12:53:06 BAD CLOTH CHECKER by Sp Nunes
[2023-11-13 13:47] VITALS: BP 126/53; TEMP 98.3
--- NOTE | 2023-11-13 14:22 | P.DS ---
Admission Date: 11/12/23 Discharge Date: 11/13/23 Disposition: ROUTINE DISCHARGE Discharge Condition: GOOD Reason for Admission: Feeling sleepy Brief History of Present Illness: 77-year-old female with a past medical history of COPD, CVA, hypertension, hyperlipidemia presents to the emergency room with elevated blood pressure and chest pain. CT of the chest for PE chest x-ray pulmonary nodules over the right lung, laboratory evaluation mild hyponatremia, WBCs unremarkable, elevated BNP 1203, COVID-positive PCR, flu AMB negative troponin negative, lactate normal - Physical Exam General: Alert, In no apparent distress, Oriented x3 HEENT: Atraumatic, Normocephalic Neck: Supple, 2+ carotid pulse no bruit Respiratory: Normal air movement, equal and unlabored Cardiovascular: No edema, Normal pulses Gastrointestinal: Normal bowel sounds, Soft and benign Musculoskeletal: No clubbing, No swelling Integumentary: No rashes, No breakdown Neurological: Normal speech, Normal strength at 5/5 x4 extr Hospital Course: 77-year-old female patient with COPD, current current tobacco use presented with COPD presented to the emergency room with chest pain. Was noted to have COVID. Was treated with steroids, Condition improved with oxygen and steroid Stable for discharge to home with follow-up appointment with primary care physician, pulmonary PROBLEM: COVID Pulmonary nodule Tobacco use Follow-up with pulmonary after discharge Discharge home on steroids Recommend tobacco cessation Continue home medicines as previously prescribed GOAL: Clear understanding of disease process INSTRUCTIONS: Physician Discharge Instructions: -DC IV and DC home -Follow-up with PCP in 1 to 2 weeks -Please call Dr. Gardiner at [phone] if any questions regarding hospital stay -Please call nursing station at [phone] if any nursing or medication questions -Return to the emergency room if symptoms worsen Diet: ADA, low sodium Activity: Fall precautions DME: Date Ordered: Name of Company: [employer] Services Needed: None Date or Referral: IMMUNIZATION Influenza Vaccine Indicated: Influenza Vaccine Given: Date Given: Pneumonia Vaccine Indicated: Pneumonia Vaccine Given: Date Given: Vital Signs/Physical Exam: Temp Pulse Resp BP Pulse Ox 98.3 F 60 18 126/53 L 95 11/13/23 12:00 11/13/23 12:00 11/13/23 12:00 11/13/23 12:00 11/13/23 12:00 Laboratory Data at Discharge: WBC 3.60 thou/uL (4.3-10.9) L 11/13/23 06:25 Hgb 13.8 g/dL (12.0-15.0) 11/13/23 06:25 Hct 40.7 % (36.0-45.0) 11/13/23 06:25 Plt Count 153 thou/uL (152-406) 11/13/23 06:25 PT 11.6 SECONDS (9.5-12.5) 11/12/23 12:12 INR 1.06 11/12/23 12:12 Sodium 136 mEq/L (136-145) 11/13/23 06:25 Potassium 3.6 mEq/L (3.5-5.1) 11/13/23 06:25 BUN 8 mg/dL (7-18) 11/13/23 06:25 Creatinine 0.73 mg/dL (0.55-1.02) 11/13/23 06:25 Glucose 84 mg/dL (74-106) 11/13/23 06:25 Magnesium 2.2 mg/dL (1.6-2.4) 11/13/23 06:25 Total Bilirubin 0.3 mg/dL (0.2-1.0) 11/12/23 12:12 AST 23 U/L (15-37) 11/12/23 12:12 ALT 16 U/L (13-56) 11/12/23 12:12 Alkaline Phosphatase 70 U/L (45-117) 11/12/23 12:12 Home Medications: Clopidogrel Bisulfate [Plavix] 1 tab PO DAILY 02/01/16 Albuterol Sulfate [Proair Hfa] 2 puff IH Q6HR PRN 10/27/19 Fluticasone/Umeclidin/Vilanter [Trelegy Ellipta 100-62.5-25] 1 each IH BID 10/27/19 oxyBUTYnin chloride [Oxybutynin Chloride] 5 mg PO BID 01/14/21 Bupropion *Xl* [Wellbutrin XL*] 1 tab PO BID 11/12/23 Clopidogrel Bisulfate [Plavix*] 1 tab PO DAILY 11/12/23 Metoprolol Tartrate [Lopressor*] 50 mg PO BID 11/12/23 Paroxetine HCl [Paxil Cr] 25 mg PO DAILY 11/12/23 Rosuvastatin [Crestor*] 20 mg PO DAILY 11/12/23 predniSONE [Prednisone] 20 mg PO BID #11 tab 11/13/23 New Medications: predniSONE [Prednisone] 20 mg PO BID #11 tab Physician Discharge Instructions: -DC IV and DC home -Follow-up with PCP in 1 to 2 weeks -Follow-up with Pulmonary in 1 to 2 weeks -Please call Dr. Gardiner at [phone] if any questions regarding hospital stay -Please call nursing station at [phone] if any nursing or medication questions -Return to the emergency room if symptoms worsen Diet: AHA Activity: Fall precautions Followup: Igor Riley MD [ACTIVE - CAN ADMIT] - 1-2 Weeks Loretta Kumar NP [Primary Care Provider] - 1-2 Weeks Time spent managing pt's care (in minutes): 55
--- NOTE | 2023-11-13 18:12 | PN ---
Code 44 note. The patient is a 77-year-old female who was admitted and evaluated by the hospitalist with chest pain, found to have COVID-19, not requiring inpatient admission as she clinically improved over the last 24 hours. Will be followed by Dr. Riley as an outpatient and this is appropriate c are for this patient's diagnosis. Therefore I approve this code 44. DEVONTE/ZACK Voice ID: [id number] Report ID: [id number]
== END 2023-11-13 15:33 | disposition home or self-care (01) ==
LOC: ER 11:18 → INTOOBSV 16:01 → 2ND 16:01
PROVIDERS: ADMIT Hospitalist; ATTEND Hospitalist
DX: R07.9 Chest pain, unspecified (principal); U07.1 COVID-19; R91.8 Other nonspecific abnormal finding of lung field; J44.9 Chronic obstructive pulmonary disease, unspecified; I10 Essential (primary) hypertension; E78.5 Hyperlipidemia, unspecified; R79.89 Other specified abnormal findings of blood chemistry; F17.210 Nicotine dependence, cigarettes, uncomplicated; Z86.73 Personal history of transient ischemic attack (TIA), and cerebral infarction without residual deficits
CPT/HCPCS: 93005; 85025 ×2; 81001; 80048 ×2; 36415; 83735 ×2; 85610; 80076; 83605; 84484; 83880 ×2; 87635; 87804 ×2; 71275; 71045; Q9967; J0360; J1100; J7050; G0378

== ENCOUNTER 2023-12-24 07:22 | Day surgery (SDC) | payer OTHER ==
[2023-12-24 07:47] LABS: MPV 7.2 fL (7.6-11.3); Platelets 240 thou/uL (152-406)
[2023-12-24] MEDS ORDERED: FENTANYL CITR 100 MCG/2 ML ONE (07:58)
[2023-12-24] MEDS ORDERED: MIDAZOLAM HCL 2 MG/2 ML INJ ONE (07:58)
[2023-12-24] MEDS ORDERED: NALOXONE HCL 2 MG/2 ML VIAL ONE (07:58)
[2023-12-24] MEDS ORDERED: FLUMAZENIL 0.1 MG/ML (5 mL VIAL) IV ONE (07:58)
[2023-12-24] MEDS ORDERED: Ringers Lactate 1,000 ML IV ONE (08:18)
[2023-12-24 08:32] VITALS: BMI 22.7
--- NOTE | 2023-12-24 09:33 | RAD REPORT ---
EXAM DESCRIPTION: CT - Lung Biopsy Perc w/CT - 12/24/2023 9:24 am CLINICAL HISTORY: lung bx COMPARISON: No comparisons FINDINGS: Preoperative diagnosis: Right middle lobe lung lesion Post operative diagnosis: Same Conscious Sedation: 1.5 milligram Versed, 75 mcg Fentanyl. 30 minutes of continues [id number] time. Patient was continuously monitored by nursing staff. Contrast used: NONE Estimated blood loss: less than 5 mL Specimens: 3 x 18 gauge core samples of the right middle lobe mass. Image Guidance: Intermittent CT fluoro Complications: None Postprocedure imaging demonstrated no complications. Samples were given to pathology for analysis. Th e patient tolerated the procedure without immediate complication and transferred to the recovery room in stable condition. IMPRESSION: Technically successful CT-guided biopsy of a right middle lobe lesion. No immediate comp lications. Conscious sedation was utilized. All CT scans are performed using dose optimization technique as appropriate and may include automated exposure control or mA/KV adjustment according to patient size.
[2023-12-24 10:21] VITALS: O2SAT 100
--- NOTE | 2023-12-24 11:05 | RAD REPORT ---
EXAM DESCRIPTION: RAD - Chest Single View - 12/24/2023 10:58 am CLINICAL HISTORY: s/p lung bx COMPARISON: Chest Single View dated 11/12/2023; Chest Pa And Lat (2 Views) dated 12/30/2021; Chest Pa A nd Lat (2 Views) dated 05/07/2019; Chest Single View dated 03/24/2019 FINDINGS: No pneumothorax 1 right-sided lung biopsy. Emphysema. IMPRESSION: No pneumothorax following right-sided lung biopsy.
--- NOTE | 2023-12-24 11:51 | RAD REPORT ---
EXAM DESCRIPTION: RAD - Chest Single View - 12/24/2023 11:43 am CLINICAL HISTORY: s/p lung bx COMPARISON: Chest Single View dated 12/24/2023; Chest Single View dated 11/12/2023; Chest Pa And Lat (2 Views) dated 12/30/2021; Chest Pa And Lat (2 Views) dated 05/07/2019 FINDINGS: No pneumothorax on right side lung biopsy. IMPRESSION: No pneumothorax following right-sided lung biopsy.
[2023-12-24 15:01] VITALS: BP 168/70; TEMP 97.6
== END 2023-12-24 12:00 | disposition home or self-care (01) ==
LOC: DS 07:22
PROVIDERS: ATTEND Internal Medicine Sleep Medicine
PROC: 0BBD3ZX Excision of Right Middle Lung Lobe, Percutaneous Approach, Diagnostic (ICD-10-PCS; principal; 2023-12-24)
DX: C34.2 Malignant neoplasm of middle lobe, bronchus or lung (principal)
CPT/HCPCS: 32408; 36415; 85049; 88305; 85730; 77012; 71045 ×2; J2250; J3010; J7120; 88304; J2310

== ENCOUNTER 2024-01-24 05:55 | Day surgery (SDC) | payer OTHER ==
[2024-01-24] MEDS: Ringers Lactate 1,000 ML IV ONE ×2 (06:35→08:28)
[2024-01-24] MEDS: METHYLPREDNISOLONE 125 MG INJ ONE (06:46)
[2024-01-24] MEDS ORDERED: NS 0.9% VIAL 20 ML ONE (06:49)
[2024-01-24] MEDS ORDERED: HEPARIN 5000 UNIT/ML 1 ML VIAL ONE (06:50)
[2024-01-24 06:55] LABS: Absolute Lymphocytes (CBC) 0.8 K/uL (0.7-4.9); Absolute Monocytes 0.5 K/uL (0.1-1.3); Absolute Neutrophil 8.7 K/uL (1.8-8.0); Basophils % 0.4 % (0-1.3); Eosinophils % 0.1 % (0-4.4); Hematocrit 40.2 % (36.0-45.0); Hemoglobin 13.5 g/dL (12.0-15.0); Lymphocytes % 8.3 % (15.3-44.8); MCHC 33.5 g/dL (32.0-36.0); MCV 95.5 fL (80-100); Monocytes % 5.2 % (3.3-12.3); Nucleated Red Blood Cells % 0.1 % (0-0); Platelets 212 thou/uL (152-406); RBC Red Blood Cell Count 4.21 M/uL (3.86-4.86); Red Cell Distribution Width 13.8 % (12.1-15.2)
[2024-01-24 06:59] LABS: PT Prothrombin Time 10.2 SECONDS (9.5-12.5); PTT, Activated Partial Thromb 29.1 SECONDS (24.3-36.9); Protime INR 0.93
[2024-01-24] MEDS ORDERED: propofoL 200 MG/20 ML VIAL IV ONE (07:10)
[2024-01-24] MEDS ORDERED: LIDOCAINE 2% MPF 5 ML VIAL ONE (07:10)
[2024-01-24] MEDS ORDERED: FENTANYL CITR 100 MCG/2 ML ONE (07:10)
[2024-01-24] MEDS ORDERED: ONDANSETRON 4 MG/2 ML VIAL ONE (07:10)
[2024-01-24] MEDS: CEFAZOLIN SODIUM 1 GM/VIAL ONE (07:27)
[2024-01-24] MEDS: LIDOCAINE 1% MPF 30 ML VIAL ONE (07:56)
[2024-01-24] MEDS ORDERED: Mastisol Adhesive Liq ONE (08:11)
--- NOTE | 2024-01-24 08:30 | P.OP ---
Date of Service: 01/24/24 Preop diagnosis: Lung cancer Postop diagnosis: Same Procedure performed: Placement of right IJ Port-A-Cath, utilization of ultrasound and fluoroscopy Surgeon: Leonard Allan MD Jewelsmith: Terri BALDWIN Estimated blood loss: Minimal Specimen: None Findings: Normal anatomy Anesthesia: General Complications: None Drains: None Fluids and blood products: Nonapplicable Disposition: Recovery room Operative note: Patient brought to the OR and placed in the supine position. General anesthesia began. Patient prepped and draped in the usual sterile fashion. Lidocaine 1% infiltrated locally. Ultrasound device utilized to isolate the right internal jugular vein. 18-gauge needle used to access the vein. Guidewire passed and position confirmed with fluoroscopy. 3 cm counterincision made on the right anterior chest and a pocket created. Bleeding controlled cautery. Tunneling device used to tunnel the catheter between the 2 wounds. Catheter attached to the Port-A-Cath device. Port-A-Cath device attached to the subcutaneous tissue with 3-0 Vicryl. Port-A-Cath flushed with heparin and packed with heparin with good blood flow. 3-0 chromic used to approximate subcutaneous tissue and close skin. Sterile dressing applied. Patient awakened and taken to recovery room in good general condition. Chest x- ray has been ordered. CC: Dr. Parker's office
[2024-01-24] MEDS ORDERED: HYDROCODONE/APAP 7.5/325 MG TAB PO PRN (08:33)
[2024-01-24] MEDS ORDERED: LABETALOL HCL 100 MG/20 ML ONE (08:53)
[2024-01-24] MEDS: LABETALOL 20 MG/4ML SYRINGE IV ONE (08:55)
--- NOTE | 2024-01-24 09:27 | RAD REPORT ---
EXAM DESCRIPTION: NGOZIBrian Single View01/24/2024 9:08 am CLINICAL HISTORY: Device placement/central venous catheter placement IMPRESSION: Central venous catheter with its tip in the superior vena cava No pneumothorax
[2024-01-24 09:31] LABS: Blood Morphology Comment NOT SEEN (NOT SEEN); Platelet Estimate ADEQ; White Blood Cell Scan OK (OK)
--- NOTE | 2024-01-24 09:33 | RAD REPORT ---
EXAM DESCRIPTION: RAD - Fluoroscopy <1 Hour - 01/24/2024 9:12 am CLINICAL HISTORY: Device placement central venous catheter placement FINDINGS: A central venous catheter was placed into the superior vena cava. For fluoroscopic spot im ages are submitted. Fluoroscopy time 0.6 minutes The examination was performed by Dr. Allan
[2024-01-24 10:50] VITALS: BP 157/63; TEMP 97.9; O2SAT 95
== END 2024-01-24 10:37 | disposition home or self-care (01) ==
LOC: OR 05:55
PROVIDERS: ATTEND Surgery
PROC: 0JH60WZ Insertion of Totally Implantable Vascular Access Device into Chest Subcutaneous Tissue and Fascia, Open Approach (ICD-10-PCS; principal; 2024-01-24 07:30)
DX: C34.90 Malignant neoplasm of unspecified part of unspecified bronchus or lung (principal)
CPT/HCPCS: 36415; 71045; 76000; 85025; 85610; 85730; A4216; C1788; J0690; J1644; J2001; J2405; J2704; J2919; J3010; J7120

== ENCOUNTER 2024-02-09 17:01 | Emergency (ER) | payer OTHER ==
[2024-02-09] MEDS ORDERED: NA CHLORIDE 0.9% 1,000 ML ONE (17:35)
[2024-02-09 18:06] LABS: PT Prothrombin Time 9.8 SECONDS (9.5-12.5); PTT, Activated Partial Thromb 21.9 SECONDS (24.3-36.9); Protime INR 0.89
[2024-02-09 18:14] LABS: Absolute Eosinophils 0.1 K/uL (0-0.5); Absolute Lymphocytes (CBC) 0.6 K/uL (0.7-4.9); Absolute Monocytes 0.1 K/uL (0.1-1.3); Absolute Neutrophil 2.2 K/uL (1.8-8.0); Basophils % 0.8 % (0-1.3); Eosinophils % 3.5 % (0-4.4); Hematocrit 41.6 % (36.0-45.0); Lymphocytes % 20.5 % (15.3-44.8); MCH 32.3 pg (27.0-35.0); MCHC 33.7 g/dL (32.0-36.0); MCV 95.8 fL (80-100); MPV 8.1 fL (7.6-11.3); Monocytes % 3.3 % (3.3-12.3); Neutrophils % 71.9 % (41.7-73.7); Nucleated Red Blood Cells % 0.2 % (0-0); Platelets 214 thou/uL (152-406); RBC Red Blood Cell Count 4.34 M/uL (3.86-4.86); Red Cell Distribution Width 13.5 % (12.1-15.2)
[2024-02-09 18:17] LABS: Anion Gap 6.9 mEq/L (5.0-15.0); Troponin High Sensitivity 5.2 pg/mL (<58.9)
[2024-02-09 18:18] LABS: Potassium 4.9 mEq/L (3.5-5.1)
--- NOTE | 2024-02-09 19:36 | RAD REPORT ---
EXAM DESCRIPTION: CT - Chest For Pe Angio - 02/09/2024 7:17 pm CLINICAL HISTORY: near syncope, lung cancer COMPARISON: CT RAD RX FIELD SPINE dated 01/15/2024; Chest For Pe Angio dated 11/12/2023; Lung Cancer Scr eening CT W/O dated 06/06/2019 TECHNIQUE: Dynamically enhanced axial 3 mm thick images of the chest were obtained during administra tion of <100> mL Isovue 370 IV contrast. Coronal and oblique reconstruction images were generated and reviewed. Exam utilizes a protocol for optimal evaluation of pulmonary arterial tree. Maximum intensity projections 3D imaging was utilized All CT scans are performed using dose optimization technique as appropriate and may include automated exposure control or mA/KV adjustment according to patient size. FINDINGS: Chest Wall: No suspicious thyroid nodules or pathologic lymphadenopathy. Right upper chest wall Port-A-Cath. Bilateral breast prostheses. Lungs: Decrease in size of the right middle lobe lesion which measures 1.6 cm, previously 2.3 cm. 7 m m nodule right middle lobe on image 64, series 602 is unchanged. Emphysema. Pleura: No significant effusions or pneumothorax. Mediastinum/mekhi: Unchanged 9 millimeters subcarinal lymph node. Right hilar lymph node measuring 7 m illimeters is minimally decreased from prior. Pulmonary arteries/Aorta: No filling defect identified. No aortic aneurysm. Heart: No significant pericardial effusion. Normal heart size. Mitral annular calcifications. Coronar y calcifications. Upper abdomen: No acute abnormality. Bones: No acute abnormality. Spinal stimulator. Kyphoplasty changes at L1. IMPRESSION: Negative for pulmonary embolism. No acute findings in the chest. Decrease in size of the right middle lobe nodule compared with 11/12/2023 likely reflecting response to treatment.
--- NOTE | 2024-02-09 19:42 | RAD REPORT ---
EXAM DESCRIPTION: CTAbdomen Pelvis W Contrast - 02/09/2024 7:25 pm CLINICAL HISTORY: near syncope, no BM COMPARISON: CT RAD RX FIELD SPINE dated 01/15/2024; Chest For Pe Angio dated 11/12/2023; Ct Skull/Thigh dated 11/29/2023 TECHNIQUE: CT of the abdomen and pelvis was performed. All CT scans are performed using dose optimization technique as appropriate and may include automated exposure control or mA/KV adjustment according to patient size. FINDINGS: Lower chest: Bilateral breast prostheses. Mild circumferential thickened distal esophagus. Liver: No acute abnormality or suspicious lesions. Biliary: No biliary ductal dilatation. Stomach: No significant focal abnormality. Duodenum: No significant focal abnormality. Pancreas: No significant abnormality. Spleen: No significant abnormality. Adrenal: Left adrenal nodule is similar in size to the CT from 01/15/2024. It is new or increased in size since 11/12/2023. Kidney/ureter: No hydronephrosis. No renal calculi. Retroperitoneum: No retroperitoneal adenopathy. Vascular: No aneurysm. Bowel: Large colonic stool burden.. Peritoneum: No ascites or free air. Bladder: Grossly unremarkable. Reproductive: No adnexal masses. Bones: No acute fracture. Spinal stimulator. Kyphoplasty changes at L1 and L3. Anterolisthesis of L5 on S1. Multilevel degenerative changes are present in the spine. Other: n/a IMPRESSION: No acute intra-abdominal or pelvic finding. Large colonic stool burden. Enlarging left a drenal nodule highly concerning for metastatic disease. PET-CT could further evaluate. The lesion wo uld be amenable to percutaneous biopsy if clinically indicated.
--- NOTE | 2024-02-09 20:19 | EDPHYS ---
Physician Documentation [facility] Name: Lidia Wall Age: 78 yrs Sex: Female : 1945 Arrival Date: 02/09/2024 Time: 17:01 Bed 5 Private MD: ED Physician Ulises Romeo HPI: 02/08 17:32 This 78 yrs old Female presents to ER via EMS with complaints of General Weakness. rn 17:32 Patient reports generalized weakness, lightheaded and diaphoretic when using the rn bathroom. No syncope. No fall or injury. Patient is on week 3 of chemotherapy for lung cancer. Patient reports decreased appetite but is trying to eat. No new chest pain or shortness of breath. No abdominal pain. Reports constipation but is passing gas. Denies abdominal swelling.. Onset: The symptoms/episode began/occurred today. Severity of symptoms: At their worst the symptoms were moderate in the emergency department the symptoms have improved. The patient has not experienced similar symptoms in the past. The patient has not recently seen a physician. Historical: - Allergies: 17:03 NKDA; bp - Home Meds: 17:03 rosuvastatin 10 mg Oral tab 1 tab once daily [Active]; Plavix 75 mg Oral tab 1 tab once bp daily [Active]; paroxetine HCl 25 mg Oral Tb24 1 tab once daily [Active]; albuterol sulfate 90 mcg/actuation Inhl HFA Aerosol Inhaler [Active]; Symbicort 160-4.5 mcg/actuation inhalation HFAA 2 puffs 2 times per day [Active]; Bupropion Oral [Active]; Lopressor Oral [Active]; Oxybutynin Chloride Oral [Active]; - PMHx: 17:03 COPD; Hyperlipidemia; Hypertension; CVA; bp - Immunization history:: Adult Immunizations up to date. - Infectious Disease History:: Denies. - Social history:: Smoking status: unknown. - Family history:: not pertinent. - Hospitalizations: : No recent hospitalization is reported. 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 Head/Face: Normocephalic, atraumatic. ENT: Dry mucous membranes Cardiovascular: Bradycardic, regular. Respiratory: No increased work of breathing, no retractions or nasal flaring. Abdomen/GI: Soft, non-tender Skin: Warm, dry MS/ Extremity: Pulses equal, no cyanosis. Neuro: Awake and alert, GCS 15 17:52 ECG was reviewed by the Attending Physician. rn Vital Signs: 17:03 BP 136 / 60; Pulse 50; Resp 16; Temp 97.5; Pulse Ox 97% ; bp 20:13 BP 146 / 81; Pulse 64; Pulse Ox 99% on R/A; tm6 20:20 BP 141 / 80; Pulse 64; Resp 17; Temp 97.5; Pulse Ox 99% ; Pain 0/10; bm8 20:20 Pain Scale: Adult bm8 [place] Coma Score: 20:20 Eye Response: spontaneous(4). Motor Response: obeys commands(6). Verbal Response: bm8 oriented(5). Total: 15. MDM: 17:03 Patient medically screened. rn 02/09 00:18 Differential Diagnosis Vasovagal reaction versus adverse reaction to chemotherapy ms3 versus near syncope. Data reviewed: vital signs, nurses notes, lab test result(s), EKG, radiologic studies, and as a result, I will discharge patient. Independent interpretation of the following test(s) in the Emergency Department EKG: See my EKG interpretation above. 00:18 Care significantly affected by the following chronic conditions: Hypertension, Chronic ms3 Obstructive Pulmonary Disease. Counseling: I had a detailed discussion with the patient and/or guardian regarding the historical points, exam findings, and any diagnostic results supporting the discharge/admit diagnosis, lab results, radiology results, the need for outpatient follow up, to return to the emergency department if symptoms worsen or persist or if there are any questions or concerns that arise at home. Special discussion: I discussed with the patient/guardian in detail that at this point there is no indication for admission to the hospital. It is understood, however, that if the symptoms persist or worsen the patient needs to return immediately for re-evaluation. ED course: Discussed labs and CTs with patient and her daughter. Patient to follow-up with oncology as discussed. All questions were answered. Return precautions discussed include worsening symptoms, chest pain, shortness of breath, or any other concerns. On reevaluation patient is alert and oriented x 4, no apparent distress, nontoxic-appearing, speaking full sentences. 02/08 17:04 Order name: CBC with Diff; Complete Time: 19:02 rn 02/08 17:04 Order name: Basic Metabolic Panel; Complete Time: 19: rn 02/08 17:04 Order name: Protime (+inr); Complete Time: 19: rn 02/08 17:04 Order name: Ptt, Activated; Complete Time: 19: rn 02/08 17:05 Order name: Troponin High Sensitivity; Complete Time: 19: rn 02/08 17:05 Order name: BNP; Complete Time: 19: rn 02/08 17:04 Order name: CT Chest For PE Angio; Complete Time: 19:45 rn 02/08 17:04 Order name: CT Abd/Pelvis - IV Contrast Only; Complete Time: 19:45 rn 02/08 17:05 Order name: EKG; Complete Time: 17:06 rn 02/08 17:04 Order name: IV Start; Complete Time: 17:33 rn 02/08 17:05 Order name: EKG - Nurse/Tech; Complete Time: 17:33 rn 02/08 17:06 Order name: Cardiac monitoring; Complete Time: 17: rn 02/08 17:06 Order name: O2 Sat Monitoring; Complete Time: 17: rn EC/04 17:52 Rate is 50 beats/min. Rhythm is regular. QRS [place] is Normal. PA interval is normal. QRS rn interval is normal. QT interval is normal. No Q waves. T waves are Normal. No ST changes noted. Clinical impression: Sinus bradycardia. Interpreted by me. Reviewed by me. Administered Medications: 17:45 Drug: NS 0.9% IV 1000 ml IV at 1000 ml once Route: IV; Rate: 1000 ml; Site: right upper bp arm; 20:36 Follow up: Response: No adverse reaction; IV Status: Completed infusion; IV Intake: bm8 1000ml Disposition Summary: 02/09/24 20:19 Discharge Ordered Notes: Location: Home ms3 Condition: Stable ms3 Diagnosis - Syncope Near ms3 - Left Adrenal Nodule ms3 Followup: ms3 - With: Private Physician - When: 2 - 3 days - Reason: Discharge Instructions: - Discharge Summary Sheet ms3 - Near-Syncope ms3 Forms: - Medication Reconciliation Form ms3 - Antibiotic Education ms3 - Prescription Opioid Use ms3 - Patient Portal Instructions ms3 - Leadership Thank You Letter ms3 Signatures: Dispatcher [employer] EDMS Xavier Regan MD MD rn Christopher Hankins, RN RN Ulises Sepulveda DO DO ms3 Noel Reddy RN bm8 Corrections: (The following items were deleted from the chart) 17:05 17:05 CBC+H.LAB.BRZ ordered. EDMS EDMS 17:05 17:05 BASIC METABOLIC PANEL+C.LAB.BRZ ordered. EDMS EDMS 17:05 17:05 PROTIME (+INR)+COAG.LAB.BRZ ordered. EDMS EDMS 17:05 17:05 PTT, ACTIVATED+COAG.LAB.BRZ ordered. EDMS EDMS 17:05 17:05 Urinalysis+U.LAB.BRZ ordered. EDMS EDMS 17:05 17:05 Chest For PE Angio+CT.RAD.BRZ ordered. EDMS EDMS 17:05 17:05 Abdomen Pelvis W Con+CT.RAD.BRZ ordered. EDMS EDMS 17:06 17:06 Troponin High Sensitivity+C.LAB.BRZ ordered. EDMS EDMS 17:06 17:06 PROBNP+C.LAB.BRZ ordered. EDMS EDMS
--- NOTE | 2024-02-09 20:19 | ER ---
Nurse's Notes [facility] Name: Lidia Wall Age: 78 yrs Sex: Female : 1945 Arrival Date: 02/09/2024 Time: 17:01 Bed 5 Private MD: Diagnosis: Syncope Near;Left Adrenal Nodule Presentation: 02/08 17:03 Chief complaint: EMS states: GENERALIZED WEAKNESS TODAY. Coronavirus screen: At this bp time, the client does not indicate any symptoms associated with coronavirus-19. Ebola Screen: No symptoms or risks identified at this time. Initial Sepsis Screen: Does the patient meet any 2 criteria? No. Patient's initial sepsis screen is negative. Does the patient have a suspected source of infection? No. Patient's initial sepsis screen is negative. Risk Assessment: Do you want to hurt yourself or someone else? Patient reports no desire to harm self or others. Onset of symptoms was February 09, 2024. Care prior to arrival: Glucose check: 79. 17:03 Method Of Arrival: EMS: [facility] bp 17:03 Acuity: EMILY 3 bp 17:05 Note 3RD WEEK CHEMO AND XRT. bp Triage Assessment: 17:05 General: Appears in no apparent distress. uncomfortable, ill, slender, Behavior is bp calm, cooperative, appropriate for age. Pain: Denies pain. Neuro: Level of Consciousness is awake, alert, obeys commands, Oriented to Appropriate for age. Cardiovascular: Rhythm is sinus bradycardia. Respiratory: No deficits noted. GI: No signs and/or symptoms were reported involving the gastrointestinal system. : No signs and/or symptoms were reported regarding the genitourinary system. Historical: - Allergies: 17:03 NKDA; bp - Home Meds: 17:03 rosuvastatin 10 mg Oral tab 1 tab once daily [Active]; Plavix 75 mg Oral tab 1 tab once bp daily [Active]; paroxetine HCl 25 mg Oral Tb24 1 tab once daily [Active]; albuterol sulfate 90 mcg/actuation Inhl HFA Aerosol Inhaler [Active]; Symbicort 160-4.5 mcg/actuation inhalation HFAA 2 puffs 2 times per day [Active]; Bupropion Oral [Active]; Lopressor Oral [Active]; Oxybutynin Chloride Oral [Active]; - PMHx: 17:03 COPD; Hyperlipidemia; Hypertension; CVA; bp - Immunization history:: Adult Immunizations up to date. - Infectious Disease History:: Denies. - Social history:: Smoking status: unknown. - Family history:: not pertinent. - Hospitalizations: : No recent hospitalization is reported. Screenin:06 [facility] ED Fall Risk Assessment (Adult) History of falling in the last 3 months, bp including since admission No falls in past 3 months (0 pts). Abuse screen: Denies threats or abuse. Denies injuries from another. Nutritional screening: No deficits noted. Tuberculosis screening: No symptoms or risk factors identified. Assessment: 17:06 General: SEE TRIAGE NOTE. bp 20:13 Reassessment: Patient and/or family updated on plan of care and expected duration. Pain tm6 level reassessed. Patient is alert, oriented x 3, equal unlabored respirations, skin warm/dry/pink. 20:20 Reassessment: Patient appears in no apparent distress at this time. Patient and/or bm8 family updated on plan of care and expected duration. Pain level reassessed. Patient is alert, oriented x 3, equal unlabored respirations, skin warm/dry/pink. Patient states symptoms have improved. Pain: Denies pain. 20:20 Neuro: No deficits noted. Level of Consciousness is awake, alert, obeys commands, bm8 Oriented to person, place, time, situation, Appropriate for age. Cardiovascular: No deficits noted. Capillary refill < 3 seconds Patient's skin is warm and dry. Respiratory: Airway is patent Respiratory effort is even, unlabored, Respiratory pattern is regular, symmetrical. Vital Signs: 17:03 BP 136 / 60; Pulse 50; Resp 16; Temp 97.5; Pulse Ox 97% ; bp 20:13 BP 146 / 81; Pulse 64; Pulse Ox 99% on R/A; tm6 20:20 BP 141 / 80; Pulse 64; Resp 17; Temp 97.5; Pulse Ox 99% ; Pain 0/10; bm8 20:20 Pain Scale: Adult bm8 [place] Coma Score: 20:20 Eye Response: spontaneous(4). Motor Response: obeys commands(6). Verbal Response: bm8 oriented(5). Total: 15. ED Course: 17:02 Patient arrived in ED. bp 17:03 Xavier Regan MD is Attending Physician. rn 17:03 Triage completed. bp 17:05 Arm band placed on. bp 17:06 Patient has correct armband on for positive identification. bp 17:33 Christopher Hankins, RN is Primary Nurse. bp 17:33 BNP Sent. bp 17:33 Troponin High Sensitivity Sent. bp 17:33 Protime (+inr) Sent. bp 17:33 Ptt, Activated Sent. bp 17:33 CBC with Diff Sent. bp 17:33 Basic Metabolic Panel Sent. bp 17:45 Inserted saline lock: 22 gauge in right upper arm, using aseptic technique. Blood bp collected. 19:19 CT Chest For PE Angio In Process Unspecified. EDMS 19:27 CT Abd/Pelvis - IV Contrast Only In Process Unspecified. EDMS 19:45 Attending Physician role handed off by Xavier Regan MD ms3 19:45 Ulises Romeo DO is Attending Physician. ms3 20:20 Provided Education on: post er care. Client placed on continuous cardiac and pulse bm8 oximetry monitoring. NIBP monitoring applied. front desk monitor on. Pulse ox on. NIBP on. Door closed. Lights dimmed. Warm blanket given. 20:20 No provider procedures requiring assistance completed. IV discontinued, intact, bm8 bleeding controlled, No redness/swelling at site. Pressure dressing applied. Administered Medications: 17:45 Drug: NS 0.9% IV 1000 ml IV at 1000 ml once Route: IV; Rate: 1000 ml; Site: right upper bp arm; 20:36 Follow up: Response: No adverse reaction; IV Status: Completed infusion; IV Intake: bm8 1000ml Medication: 17:06 VIS not applicable for this client. bp Intake: 20:36 IV: 1000ml; Total: 1000ml. bm8 Outcome: 20:19 Discharge ordered by . ms3 20:20 Discharged to home ambulatory, bm8 20:20 Condition: stable 20:20 Discharge instructions given to patient, Instructed on discharge instructions, follow up and referral plans. Demonstrated understanding of instructions, follow-up care, medications, 20:31 Patient left the ED. bm8 Signatures: Dispatcher [employer] EDMS Xavier Regan MD MD rn Peltier, Brian, RN RN bp Ulises Romeo DO DO ms3 Brennan Kessler, RN RN tm6 Noel Reddy RN RN bm8
[2024-02-09 20:58] VITALS: BP 146/81; TEMP 97.5; O2SAT 99
--- NOTE | 2024-02-11 14:43 | EKG ---
Test Date: 2024-02-09 Test Time: 17:14:50 Game Attendant: BP MEASUREMENT RESULTS: Intervals: Rate: 50 AK: 162 QRSD: 88 QT: 486 QTc: 443 [place]: P: 52 AK: 162 QRS: 48 T: 12 INTERPRETIVE STATEMENTS: Sinus bradycardia Anterior infarct, age undetermined Abnormal ECG Compared to ECG 11/12/2023 12:30:56 Prolonged QT interval no longer present Myocardial infarct finding still present Electronically Signed On 02-11-24 14:38:59 CDT by Sp Nunes
== END 2024-02-09 20:31 | disposition home or self-care (01) ==
LOC: ER 17:01
DX: R55 Syncope and collapse (principal); D35.02 Benign neoplasm of left adrenal gland; R53.1 Weakness; C34.90 Malignant neoplasm of unspecified part of unspecified bronchus or lung; J44.9 Chronic obstructive pulmonary disease, unspecified; I10 Essential (primary) hypertension; Z86.73 Personal history of transient ischemic attack (TIA), and cerebral infarction without residual deficits; Z79.01 Long term (current) use of anticoagulants
CPT/HCPCS: 96361; 93005; 85025; 80048; 36415; 85610; 85730; 84484; 83880; 71275; 74177; 96360; 99285; Q9967; J7030

== ENCOUNTER 2024-04-02 07:09 | Day surgery (SDC) | payer OTHER ==
[2024-04-01 11:13] LABS: Absolute Basophils 0.1 K/uL (0-0.5); Absolute Eosinophils 0.2 K/uL (0-0.5); Absolute Lymphocytes (CBC) 0.9 K/uL (0.7-4.9); Absolute Monocytes 0.5 K/uL (0.1-1.3); Absolute Neutrophil 3.2 K/uL (1.8-8.0); Basophils % 1.1 % (0-1.3); Eosinophils % 3.8 % (0-4.4); Hematocrit 34.9 % (36.0-45.0); Hemoglobin 11.9 g/dL (12.0-15.0); MCH 33.9 pg (27.0-35.0); MCHC 34.2 g/dL (32.0-36.0); MCV 99.1 fL (80-100); MPV 7.2 fL (7.6-11.3); Neutrophils % 66.1 % (41.7-73.7); Platelets 274 thou/uL (152-406); RBC Red Blood Cell Count 3.52 M/uL (3.86-4.86); Red Cell Distribution Width 17.2 % (12.1-15.2)
[2024-04-01 11:19] LABS: PT Prothrombin Time 11.4 SECONDS (9.4-12.5); PTT, Activated Partial Thromb 31.1 SECONDS (24.3-36.9); Protime INR 1.04
[2024-04-02] MEDS ORDERED: CEFAZOLIN SODIUM 2 GM/VIAL ONE (07:27)
[2024-04-02] MEDS: Ringers Lactate 1,000 ML IV ONE (07:35)
[2024-04-02] MEDS ORDERED: LIDOCAINE HCL/EPINEPHRINE 20 ML MDV ONE (09:14)
[2024-04-02] MEDS ORDERED: LIDOCAINE 1% MPF 5 ML VIAL ONE (09:16)
[2024-04-02] MEDS ORDERED: propofoL 200 MG/20 ML VIAL IV ONE (09:16)
[2024-04-02] MEDS ORDERED: MIDAZOLAM HCL 2 MG/2 ML INJ ONE (09:16)
[2024-04-02] MEDS: BUPIVACAINE 0.5% PF 10 ML VIAL ONE (10:00)
[2024-04-02] MEDS ORDERED: Mastisol Adhesive Liq ONE (10:01)
[2024-04-02] MEDS ORDERED: GLYCOPYRROLATE 0.2 MG/ML SYR ONE (10:05)
--- NOTE | 2024-04-02 10:14 | P.OP ---
Date of Service: 04/02/24 Preop diagnosis: Lung cancer, status post Port-A-Cath placement Postop diagnosis: Same Procedure performed: Removal of Port-A-Cath Surgeon: Leonard Allan MD Benefits Officer: None Estimated blood loss: Minimal Specimen: Port-A-Cath device Findings: Normal anatomy Anesthesia: General Complications: None Drains: None Fluids and blood products: Nonapplicable Disposition: Recovery room Operative note: Patient brought to the OR and placed supine position. General anesthesia began. Patient prepped and draped in usual sterile fashion. Marcaine 0.5% infiltrated locally. 15 blade used to make a 3 x 0.5 cm incision to excise the previous scar. Subcutaneous tissue divided. Bleeding controlled cautery. Port-A-Cath device identified and freed from surrounding tissue with sharp and blunt dissection. Port-A-Cath device removed and sent to pathology for identification. Bleeding controlled cautery. 3-0 chromic used to approxi mate subcutaneous tissue and close skin. Sterile dressing applied. Patient awakened and taken to recovery room in good general condition. CC: Dr. Parker' office
[2024-04-02] MEDS ORDERED: HYDROCODONE/APAP 7.5/325 MG TAB PO PRN (10:16)
[2024-04-02 10:38] VITALS: O2SAT 100
[2024-04-02 12:23] VITALS: BP 137/61; TEMP 97.3
== END 2024-04-02 11:52 | disposition home or self-care (01) ==
LOC: OR 07:09
PROVIDERS: ATTEND Surgery
PROC: 0JPT0WZ Removal of Totally Implantable Vascular Access Device from Trunk Subcutaneous Tissue and Fascia, Open Approach (ICD-10-PCS; principal; 2024-04-02 09:00)
DX: C34.90 Malignant neoplasm of unspecified part of unspecified bronchus or lung (principal); Z45.2 Encounter for adjustment and management of vascular access device
CPT/HCPCS: 85025; 36415; 85610; 88300; 85730; 36590; J2704; J2001; J2250; J7120

== ENCOUNTER 2024-12-30 07:53 | Day surgery (SDC) | payer OTHER ==
[2024-12-30] MEDS ORDERED: NA CHLORIDE 0.9% 1,000 ML ONE (08:45)
[2024-12-30 08:48] LABS: PTT, Activated Partial Thromb 32.2 SECONDS (27.2-37.4); Protime INR 0.96
[2024-12-30] MEDS ORDERED: NALOXONE HCL 2 MG/2 ML VIAL ONE (09:19)
[2024-12-30] MEDS ORDERED: FLUMAZENIL 0.1 MG/ML (5 mL VIAL) IV ONE (09:19)
[2024-12-30] MEDS ORDERED: ONDANSETRON 4 MG/2 ML VIAL ONE (09:20)
[2024-12-30] MEDS ORDERED: MIDAZOLAM HCL 2 MG/2 ML INJ ONE (09:21)
[2024-12-30] MEDS ORDERED: FENTANYL CITR 100 MCG/2 ML ONE (09:21)
--- NOTE | 2024-12-30 11:53 | RAD REPORT ---
EXAM: Chest Single View HISTORY: 79 years Female R/O PNEUMOTHORAX POST LEFT LUNG BIOPSY COMPARISON: 02/18/2024 FINDINGS: LUNGS/PLEURA: Bilateral pulmonary nodules. Chronic lung changes. No pneumothorax or effusions. CARDIAC/MEDIASTINUM: Stable size and configuration. UPPER ABDOMEN: No significant abnormality. BONES: No acute abnormality. LINES/TUBES/OTHER: N/A IMPRESSION: No pneumothorax following left-sided lung biopsy.
--- NOTE | 2024-12-30 13:14 | RAD REPORT ---
EXAMINATION: ONE VIEW CHEST XR CLINICAL INDICATION: Female, 79 years old.,R/O PNEUMOTHORAX POST LEFT LUNG BIOPSY TECHNIQUE: Frontal chest projection is submitted. Examination is limited by patient positioning and t echnique. COMPARISON: Same date chest radiograph at 1139 hours FINDINGS: Peripheral left midlung mass/opacity and right middle lobe opacification, stable. No pneumothorax or sizable effusion. The heart is normal in size. Mediastinal contours are unchanged, with spinal stimulator electrodes in place. Healing distal right clavicle fracture again seen.. IMPRESSION: Stable findings. No appreciable pneumothorax.
[2024-12-30 15:06] VITALS: O2SAT 96; BMI 22.1
[2024-12-30 15:11] VITALS: TEMP 98.3
[2024-12-30 15:18] VITALS: BP 147/66
--- NOTE | 2024-12-31 10:17 | RAD REPORT ---
PROCEDURE: CT-GUIDED BIOPSY Lung Biopsy Perc w/CT Pre-procedure diagnosis: Left upper lobe lesion Post-procedure diagnosis: Same as above. COMPLICATIONS: No immediate complications. IMPRESSION: CT-guided biopsy of left upper lobe lesion PROCEDURE DETAILS: Consent: Informed consent for the procedure including risks, benefits and alternatives was obtained a nd time-out was performed prior to the procedure. Sedation: Moderate sedation (conscious sedation) Administered by: Nurse, or other independent traine d observer, with level of consciousness and vital signs continuously monitored. Total sedation administered: 2 mL Versed and 50 mcg Fentanyl. Total intra-service sedation time: 30 minutes. Biopsy: Local anesthesia was administered. Under CT guidance, the biopsy needle was advanced to the t arget and biopsy was performed. [id number]. Number of specimens: 3 Additional sampling description: None. Preliminary assessment of sample adequacy: Not applicable. The biopsy needle was removed and a sterile dressing was applied. Post-biopsy imaging findings: No immediate complications seen. Additional Details: Additional description of procedure: None Equipment details: 18 gauge core sample device Estimated blood loss: Less than 10 mL.
== END 2024-12-30 13:31 | disposition home or self-care (01) ==
LOC: DS 07:53
PROVIDERS: ATTEND Internal Medicine
PROC: 0BBG3ZX Excision of Left Upper Lung Lobe, Percutaneous Approach, Diagnostic (ICD-10-PCS; principal; 2024-12-30)
DX: C34.2 Malignant neoplasm of middle lobe, bronchus or lung (principal); J44.9 Chronic obstructive pulmonary disease, unspecified; I10 Essential (primary) hypertension; D76.1 Hemophagocytic lymphohistiocytosis; I88.9 Nonspecific lymphadenitis, unspecified
CPT/HCPCS: 32408; 36415; 85610; 88305; 85730; 77012; 71045 ×2; J2250; J3010; J7030; J2310; J2405

== ENCOUNTER 2025-05-25 23:53 | Inpatient (IN) | payer OTHER ==
--- OUTSIDE RECORDS SUMMARY | 2025-05-25 23:58 | XMS REPORT | Continuity of Care Document ---
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 08:20:00 66 [in_i] Commo n [facility] weight 2022-09-05 08:20:00 154.6 [lb_av] Co mmon [facility] temperature 2022-09-05 08:20:00 98.6 [degF] Com mon [facility] bmi 2022-09-05 08:20:00 24.95 kg/m2 Comm on [facility] oximetry 2022-09-05 08:20:00 97 % Commo n [facility] respiratory rate 2022-09-05 08:20:00 17 /min [facility] blood pressure systolic 2022-09-05 08:20:00 118 mm[Hg] [facility] blood pressure diastolic 2022-09-05 08:20:00 55 mm[Hg] Common [facility] height 2022-05-09 11:40:00 66 [in_i] Commo n [facility] weight 2022-05-09 11:40:00 148.8 [lb_av] Co mmon [facility] temperature 2022-05-09 11:40:00 97.8 [degF] Com mon [facility] bmi 2022-05-09 11:40:00 24.01 kg/m2 Comm on [facility] oximetry 2022-05-09 11:40:00 94 % Commo n [facility] respiratory rate 2022-05-09 11:40:00 16 /min [facility] blood pressure systolic 2022-05-09 11:40:00 136 mm[Hg] Common [facility] blood pressure diastolic 2022-05-09 11:40:00 72 mm[Hg] Common [facility] height 2022-04-17 08:20:00 66 [in_i] Commo n [facility] weight 2022-04-17 08:20:00 145 [lb_av] Comm on [facility] temperature 2022-04-17 08:20:00 97.8 [degF] Com [facility] bmi 2022-04-17 08:20:00 23.4 kg/m2 Commo n [facility] oximetry 2022-04-17 08:20:00 96 % Commo n [facility] respiratory rate 2022-04-17 08:20:00 18 /min [facility] blood pressure systolic 2022-04-17 08:20:00 138 mm[Hg] [facility] blood pressure diastolic 2022-04-17 08:20:00 88 mm[Hg] Common [facility] height 2022-04-03 10:00:00 66.5 [in_i] Comm on [facility] weight 2022-04-03 10:00:00 144.2 [lb_av] Co mmon [facility] temperature 2022-04-03 10:00:00 97.4 [degF] Com [facility] bmi 2022-04-03 10:00:00 22.92 kg/m2 Comm on [facility] oximetry 2022-04-03 10:00:00 95 % Commo n [facility] respiratory rate 2022-04-03 10:00:00 18 /min [facility] blood pressure systolic 2022-04-03 10:00:00 139 mm[Hg] [facility] blood pressure diastolic 2022-04-03 10:00:00 77 mm[Hg] Common [facility] height 2022-03-24 10:20:00 66.5 [in_i] Comm on [facility] weight 2022-03-24 10:20:00 143.6 [lb_av] Co mmon [facility] temperature 2022-03-24 10:20:00 97.3 [degF] Com [facility] bmi 2022-03-24 10:20:00 22.83 kg/m2 Comm on [facility] oximetry 2022-03-24 10:20:00 99 % Commo n [facility] respiratory rate 2022-03-24 10:20:00 18 /min [facility] blood pressure systolic 2022-03-24 10:20:00 136 mm[Hg] Common [facility] blood pressure diastolic 2022-03-24 10:20:00 64 mm[Hg] [facility] height 2021-12-06 10:40:00 66.5 [in_i] Comm on [facility] weight 2021-12-06 10:40:00 139 [lb_av] Comm on [facility] temperature 2021-12-06 10:40:00 98.0 [degF] Com mon [facility] bmi 2021-12-06 10:40:00 22.1 kg/m2 Commo n [facility] oximetry 2021-12-06 10:40:00 94 % Commo n [facility] respiratory rate 2021-12-06 10:40:00 18 /min [facility] blood pressure systolic 2021-12-06 10:40:00 136 mm[Hg] [facility] blood pressure diastolic 2021-12-06 10:40:00 88 mm[Hg] Common [facility] height 2021-10-05 08:00:00 66.5 [in_i] Comm on [facility] weight 2021-10-05 08:00:00 141.0 [lb_av] Co mmon [facility] temperature 2021-10-05 08:00:00 97.0 [degF] Com [facility] bmi 2021-10-05 08:00:00 22.41 kg/m2 Comm on [facility] oximetry 2021-10-05 08:00:00 90 % Commo n [facility] respiratory rate 2021-10-05 08:00:00 18 /min [facility] blood pressure systolic 2021-10-05 08:00:00 110 mm[Hg] [facility] blood pressure diastolic 2021-10-05 08:00:00 68 mm[Hg] Common [facility] height 2021-09-27 09:40:00 66.5 [in_i] Comm on [facility] weight 2021-09-27 09:40:00 141 [lb_av] Comm on [facility] temperature 2021-09-27 09:40:00 97.2 [degF] Com [facility] bmi 2021-09-27 09:40:00 22.41 kg/m2 Comm on [facility] oximetry 2021-09-27 09:40:00 95 % Commo n [facility] respiratory rate 2021-09-27 09:40:00 20 /min [facility] blood pressure systolic 2021-09-27 09:40:00 132 mm[Hg] [facility] blood pressure diastolic 2021-09-27 09:40:00 86 mm[Hg] [facility] Systolic blood pressure 2021-07-04 18:48:00 142 mm[Hg] [facility] Diastolic blood pressure 2021-07-04 18:48:00 68 mm[Hg] [facility] Heart rate 2021-07-04 18:48:00 98 /min [facility] Body height 2021-07-04 18:48:00 172.7 cm [facility] Body weight 2021-07-04 18:48:00 65.772 kg [facility] BMI 2021-07-04 18:48:00 22.05 kg/m2 [facility] height 2021-06-29 08:40:00 66.5 [in_i] Comm on [facility] weight 2021-06-29 08:40:00 142 [lb_av] Comm on [facility] temperature 2021-06-29 08:40:00 98.4 [degF] Com mon [facility] bmi 2021-06-29 08:40:00 22.57 kg/m2 Comm on [facility] oximetry 2021-06-29 08:40:00 96 % Commo n [facility] respiratory rate 2021-06-29 08:40:00 20 /min [facility] blood pressure systolic 2021-06-29 08:40:00 130 mm[Hg] [facility] blood pressure diastolic 2021-06-29 08:40:00 82 mm[Hg] [facility] BP Systolic 2025-05-06 08:37:00 169 mm[Hg] Step hen F Darrell BP Diastolic 2025-05-06 08:37:00 104 mm[Hg] Leif phen F Darrell Weight Measured 2025-05-06 08:37:00 128.80 pounds Adriano F Darrell Height Measured 2025-05-06 08:37:00 67.50 inches Adriano F Darrell Body Temperature 2025-05-06 08:37:00 97.50 degrees Adriano F Darrell Heart Rate 2025-05-06 08:37:00 95.00 /min Margie en F Darrell Respiratory Rate 2025-05-06 08:37:00 Adriano F Darrell BP Systolic 2025-04-22 09:01:00 154 mm[Hg] Step hen F Darrell BP Diastolic 2025-04-22 09:01:00 84 mm[Hg] Leif phen F Darrell Weight Measured 2025-04-22 09:01:00 127.20 pounds Adriano F Darrell Height Measured 2025-04-22 09:01:00 67.50 inches Adriano F Darrell Body Temperature 2025-04-22 09:01:00 98.20 degrees Adriano F Darrell Heart Rate 2025-04-22 09:01:00 89.00 /min Margie en F Darrell Respiratory Rate 2025-04-22 09:01:00 17.00 /min Adriano F Darrell Respiratory Rate 2024-10-23 09:23:00 18.00 /min Adriano F Darrell BP Systolic 2024-10-23 09:23:00 130 mm[Hg] Step hen F Darrell BP Diastolic 2024-10-23 09:23:00 73 mm[Hg] Leif phen F Darrell Weight Measured 2024-10-23 09:23:00 140.20 pounds Adriano F Darrell Height Measured 2024-10-23 09:23:00 67.50 inches Adriano F Darrell Body Temperature 2024-10-23 09:23:00 98.20 degrees Adriano F Darrell Heart Rate 2024-10-23 09:23:00 79.00 /min Margie en F Darrell Systolic blood pressure 2024-08-14 14:40:00 146 mm[Hg] [facility] Diastolic blood pressure 2024-08-14 14:40:00 80 mm[Hg] [facility] Heart rate 2024-08-14 14:40:00 81 /min [facility] Body height 2024-08-14 14:40:00 172.7 cm [facility] Body weight 2024-08-14 14:40:00 63.413 kg [facility] BMI 2024-08-14 14:40:00 21.26 kg/m2 [facility] Body temperature 2021-06-23 14:31:00 36.78 [facility] Respiratory rate 2021-06-23 14:31:00 17 /min [facility] Oxygen saturation in Arterial blood by Pulse oximetry 2021-06-23 14:31:00 98 /min [facility] Procedures Procedure Date / Time Performed Performing Clinician Source EXTERNAL PROVIDER RECORDS 2023-05-07 05:01:00 Doctor Unassigned, [place] [facility] EXTERNAL PROVIDER RECORDS 2022-12-05 06:01:00 Doctor Unassigned, [place] [facility] RADIOLOGY DOCUMENTATION 2022-09-27 06:01:00 Doct or Unassigned, [place] [facility] Encounters Start Date/Time End Date/Time Encounter Type Admission Type Attending Clinicians Care Facility Care Department Encounter ID Source 2024-09-15 11:40:00 [facility] [id number] [facility] 2024-08-11 07:55:00 [facility] [id number] [facility] 2024-08-07 08:41:00 [facility] [id number] [facility] 2022-09-04 16:41:00 [facility] [id number] [facility] 2022-04-13 08:34:00 [facility] [id number] [facility] 2022-03-30 08:14:01 Outpatient Stacy Loretta [facility] [id number] [facility] 2021-11-02 14:26:11 Outpatient Loretta Kumar [facility] [id number] [facility] 2021-11-02 13:50:55 Outpatient Loretta Kumar [facility] [id number] [facility] 2021-11-02 12:42:21 Outpatient Loretta Kumar [facility] [id number] [facility] 2021-11-02 12:41:41 Outpatient Loretta Kumar [facility] [id number] [facility] 2021-11-02 12:15:05 Outpatient Loretta Kumar [facility] [id number] [facility] 2021-11-02 10:59:19 Outpatient Loretta Kumar [facility] [id number] [facility] 2025-05-06 08:34:09 2025-05-06 08:34:09 Outpatient SFA SFA [id number] Adriano Ramírez 2025-05-06 00:00:00 2025-05-06 00:00:00 Outpatient Visit SFA [id number] Adriano Ramírez 2025-04-22 09:00:16 2025-04-22 09:00:16 Outpatient SFA SFA [id number] Adriano Ramírez 2025-04-22 00:00:00 2025-04-22 00:00:00 Outpatient Visit SFA [id number] Adriano Ramírez 2025-04-16 00:00:00 2025-04-16 00:00:00 (PO) Post Op [facility] [id number] [facility] 2025-04-03 00:00:00 2025-04-03 00:00:00 (TEL) [facility]LMLC [facility]MLC [id number] [facility] 2025-04-02 00:00:00 2025-04-02 00:00:00 (TEL) [facility]LMLC [facility]LMLC [id number] [facility] 2025-04-01 00:00:00 2025-04-01 00:00:00 (TEL) [facility]LMLC [facility] [id number] [facility] 2025-04-01 00:00:00 2025-04-01 00:00:00 (SCAN COORDINATOR) New Patient [facility]LML[facility] [id number] [facility] 2025-03-17 00:00:00 2025-03-17 00:00:00 OFFICE VISIT ESTAB PT LEVEL [id number] [facility] 2025-02-26 00:00:00 2025-02-26 00:00:00 (TEL) STLMLC STLMLC [id number] [facility] 2024-10-23 09:04:10 2024-10-23 09:04:10 Outpatient SFA [facility] [id number] Adriano Ramírez 2024-10-23 00:00:00 2024-10-23 00:00:00 Outpatient Visit SFA SFA [id number] Adriano Ramírez 2024-10-15 09:27:00 2024-10-15 09:27:00 Outpatient Sp Moreira [facility] [id number] [facility] 2024-09-17 06:21:00 2024-09-17 06:21:00 Outpatient Sp Moreira [facility] [id number] [facility] 2024-09-16 00:00:00 2024-09-16 00:00:00 SUB ANNUAL [facility] VISIT [facility]LMLC STLML[facility] [id number] [facility] 2024-09-16 00:00:00 2024-09-16 00:00:00 OFFICE VISIT ESTAB PT LEVEL [id number] [facility] 2024-08-14 08:45:00 2024-08-14 08:58:42 Outpatient R KATIE DELGADILLO CRAIG [facility] [id number] [facility] 2024-08-14 08:45:00 2024-08-14 08:58:42 Office Visit Katie Delgadillo [facility] [id number] [id number] [id number] [id number] [facility] 2024-08-14 00:00:00 2024-08-14 00:00:00 Travel 1.2.840.1 [id number] 350.1.13.10 [id number] [id number] [facility] 2024-08-07 00:00:00 2024-08-07 00:00:00 OFFICE VISIT ESTAB PT LEVEL [id number] [facility] 2024-08-04 00:00:00 2024-08-04 00:00:00 (TEL) STLMLC STLMLC [id number] [facility] 2024-07-30 00:00:00 2024-07-30 00:00:00 (TEL) STLMLC STLMLC [id number] [facility] 2024-07-30 00:00:00 2024-07-30 00:00:00 OFFICE VISIT ESTAB PT LEVEL [id number] [facility] 2024-07-01 00:00:00 2024-07-01 00:00:00 (TEL) STLMLC STLMLC [id number] [facility] 2024-02-11 00:00:00 2024-02-11 00:00:00 (TEL) STLMLC STLMLC [id number] [facility] 2023-11-29 00:00:00 2023-11-29 00:00:00 (TEL) STLMLC STLMLC [id number] [facility] 2023-11-29 00:00:00 2023-11-29 00:00:00 (TEL) STLMLC STLMLC [id number] [facility] 2023-11-12 00:00:00 2023-11-12 00:00:00 (TEL) STLMLC STLMLC [id number] [facility] 2023-10-31 00:00:00 2023-10-31 00:00:00 (TEL) STLMLC STLC [id number] [facility] 2023-10-16 00:00:00 2023-10-16 00:00:00 OFFICE VISIT ESTAB PT LEVEL [id number] [facility] 2023-10-16 00:00:00 2023-10-16 00:00:00 (TEL) STLC STLC [id number] [facility] 2023-05-07 00:00:00 2023-05-07 00:00:00 Orders Only Doctor Unassigned, [place] [facility] 1.2.840.114 350.1.13.10 [id number] [id number] [facility] 2023-03-15 00:00:00 2023-03-15 00:00:00 OFFICE VISIT ESTAB PT LEVEL [id number] [facility] 2023-03-13 00:00:00 2023-03-13 00:00:00 [facility] [id number] 2022-12-05 00:00:00 2022-12-05 00:00:00 Orders Only Doctor Unassigned, [place] [facility] 1.2.840.114 350.1.13.10 4.2.7.2.686 [id number] [facility] 2022-10-13 08:15:00 2022-10-13 08:15:00 Outpatient Yoly WILDER DONNA [facility] [id number] [facility] 2022-10-12 08:39:44 2022-10-12 23:59:00 Outpatient Yoly WILDER [facility] [id number] [facility] 2022-10-12 09:00:00 2022-10-12 09:15:00 Office Visit [facility] 1.2.840.114 350.1.13.10 [id number] [id number] [facility] 2022-10-11 00:00:00 2022-10-11 00:00:00 (TEL) STLMLC STLMLC [id number] [facility] 2022-10-11 00:00:00 2022-10-11 00:00:00 SUB ANNUAL [facility] ST[facility] [id number] [facility] 2022-09-27 14:15:00 2022-09-27 14:45:00 Office Visit [facility] 1.2.840.114 350.1.13.10 4.2.7.2.686 [id number] [facility] 2022-09-27 14:15:00 2022-09-27 14:20:14 Outpatient DONNA GUNTER [facility] [id number] [facility] 2022-09-27 00:00:00 2022-09-27 00:00:00 Orders Only Doctor Unassigned, [place] [facility] 1.2.840.114 350.1.13.10 4.2.7.2.686 [id number] [facility] 2022-09-26 00:00:00 2022-09-26 00:00:00 [facility]phone [facility] 1.2.840.114 350.1.13.10 [id number] [id number] [facility] 2022-09-22 00:00:00 2022-09-22 00:00:00 (TEL) STLMLC STLMLC [id number] [facility] 2022-09-18 00:00:00 2022-09-18 00:00:00 (TEL) STLMLC STLMLC [id number] [facility] 2022-09-15 00:00:00 2022-09-15 00:00:00 (TEL) STLMLC STLMLC [id number] [facility] 2022-09-05 00:00:00 2022-09-05 00:00:00 OFFICE VISIT EST PT LEVEL [id number] [facility] 2022-05-11 00:00:00 2022-05-11 00:00:00 (TEL) STLMLC STLMLC [id number] [facility] 2022-05-09 00:00:00 2022-05-09 00:00:00 OFFICE VISIT EST PT LEVEL [id number] [facility] 2022-04-17 00:00:00 2022-04-17 00:00:00 OFFICE VISIT EST PT LEVEL [id number] [facility] 2022-04-03 00:00:00 2022-04-03 00:00:00 OFFICE VISIT EST PT LEVEL [id number] [facility] 2022-03-24 00:00:00 2022-03-24 00:00:00 OFFICE VISIT EST PT LEVEL [id number] [facility] 2022-02-03 00:00:00 2022-02-03 00:00:00 (TEL) STLMLC STLMLC [id number] [facility] 2022-02-02 00:00:00 2022-02-02 00:00:00 (TEL) STLMLC STLMLC [id number] [facility] 2022-01-09 00:00:00 2022-01-09 00:00:00 (TEL) STLMLC STLMLC [id number] [facility] 2022-01-05 00:00:00 2022-01-05 00:00:00 (TEL) STLMLC STLMLC [id number] [facility] 2021-12-06 00:00:00 2021-12-06 00:00:00 OFFICE VISIT EST PT LEVEL [id number] [facility] 2021-10-18 00:00:00 2021-10-18 00:00:00 (TEL) STLMLC STLMLC [id number] [facility] 2021-10-05 00:00:00 2021-10-05 00:00:00 SUB ANNUAL [facility] VISIT STLMLC STLMLC [id number] [facility] 2021-09-27 00:00:00 2021-09-27 00:00:00 OFFICE VISIT ESTAB PT LEVEL [id number] [facility] 2021-07-04 14:00:00 2021-07-04 14:00:00 Outpatient R KATIE DELGADILLO [facility] [id number] [facility] 2021-07-04 13:45:30 2021-07-04 13:58:15 Office Visit Katie Delgadillo [facility] 1.2.840.114 350.1.13.10 4.2.7.2.686 [id number] [facility] 2021-06-29 00:00:00 2021-06-29 00:00:00 OFFICE VISIT ESTAB PT LEVEL [id number] [facility] 2021-06-23 09:43:49 2021-06-23 23:59:00 Hospital Encounter Soila Horowitz [facility] Denis?[facility] 1.2.840.114 350.1.13.10 4.2.7.2.686 [id number] [facility] 2021-06-23 09:43:48 2021-06-23 23:59:00 Hospital Encounter Soila Horowitz [facility] Denis?[facility] 1.2.840.114 350.1.13.10 4.2.7.2.686 [id number] [facility] 2021-06-23 09:28:00 2021-06-23 10:30:45 Urgent Care Soila Horowitz [facility] Denis?[facility] 1..840.114 350.1.13.10 4.2.7.2.686 [id number] [facility] 2021-06-23 09:20:00 2021-06-23 10:30:45 Outpatient R SOILA HOROWITZ [facility] [id number] [facility] 2021-06-23 00:00:00 2021-06-23 00:00:00 Orders Only Doctor Unassigned, [place] [facility] 1..840.114 350.1.13.10 4.2.7.2.686 [id number] [facility] 2021-05-27 00:00:00 2021-05-27 00:00:00 (TEL) STLMLC STLMLC [id number] [facility] 2021-03-30 00:00:00 2021-03-30 00:00:00 Outpatient STLMLC STLMLC [id number] [facility] 2021-03-29 00:00:00 2021-03-29 00:00:00 Outpatient STLMLC STLMLC [id number] [facility] 2021-03-09 00:00:00 2021-03-09 00:00:00 Outpatient [facility]C [facility] [id number] [facility] 2021-02-10 00:00:00 2021-02-10 00:00:00 Outpatient [facility] [id number] [facility] 2021-01-20 00:00:00 2021-01-20 00:00:00 Out[address] [facility]LML[facility] [id number] [facility] 2020-12-28 00:00:00 2020-12-28 00:00:00 Outpatient [facility]MLC [facility]LMLC [id number] [facility] 2020-12-23 00:00:00 2020-12-23 00:00:00 Outpatient [facility] [id number] [facility] 2020-11-04 00:00:00 2020-11-04 00:00:00 Outpatient [facility] [id number] [facility] 2020-10-11 00:00:00 2020-10-11 00:00:00 Outpatient [facility] [id number] [facility] 2020-09-29 00:00:00 2020-09-29 00:00:00 Outpatient [facility] [id number] [facility] 2020-08-12 00:00:00 2020-08-12 00:00:00 Outpatient [facility] [id number] [facility] 2020-06-29 00:00:00 2020-06-29 00:00:00 Outpatient [facility] [id number] [facility] 2020-06-15 10:20:00 2020-06-15 10:20:00 Outpatient [facility] [id number] [facility] 2020-06-15 09:40:00 2020-06-15 09:40:00 Outpatient [facility] [id number] [facility] 2020-04-29 09:45:00 2020-04-29 09:45:00 Outpatient DONNA G[facility]TER [facility] [id number] [facility] 2020-04-22 08:30:00 2020-04-22 08:30:00 Outpatient DONNA GUNTER [facility] [id number] [facility] 2020-04-12 08:40:00 2020-04-12 08:40:00 Outpatient [facility] [id number] [facility] 2020-01-15 10:00:00 2020-01-15 10:00:00 Outpatient [facility] [id number] [facility] 2019-10-16 08:00:00 2019-10-16 08:00:00 Outpatient [facility] [id number] [facility] 2019-09-08 10:40:00 2019-09-08 10:40:00 Outpatient [facility] [id number] [facility] 2019-07-01 09:00:00 2019-07-01 09:00:00 Outpatient [facility] [id number] 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 by certified hydraulic pile hammer operator at [facility] BASIC METABOLIC [id number] 11:39:00* Test Item Value Reference Range Interpretation Comme nts SODIUM (test code = NA) 140 mEq/L 134-147 N POTASSIUM (test code = K) 5.2 mEq/L 3.4-5.0 H SPECIMEN 1+ HEMOLYZED.Results known to be adversely affected by hemolysis are: Potassium Magnesium LDH Phosphorus CHLORIDE (test code = CL) 104 mEq/L 100-108 N CARBON DIOXIDE (test code = CO2) 30 mEq/l 21-33 N ANION GAP (test code = GAP) 11 0-20 N GLUCOSE (test code = GLU) 79 mg/dL 77-141 N BLOOD UREA NITROGEN (test code = BUN) 12 mg/dL 7-25 N GLOMERULAR FILTRATION RATE (test code = GFR) 89.6 70-80 H The Glomerular Filtration Rate is a calculated parameterbased on serum Creatinine, patient age and sex. GFR valuesless than 60 mL/min/1.73 square meters are indicative ofChronic Kidney Disease. Values less than 15 mL/min/1.73square meters indicate Kidney failure. The calculation forGFR is based on the CKD-EPI (2020) calculation. This formulais race indifferent and is the recommended formula for GFRby the National Kidney Foundation for Adults.The GFR will not calculate if the sex is unknown or if thepatient's age is <18 years. CREATININE (test code = CREAT) 0.7 mg/dL 0.6-1.3 N CALCIUM (test code = CA) 9.0 mg/dL 8.0-10.5 N PROTHROMBIN [id number] 11:36:00* Test Item Value Reference Range Interpretation Comme nts PROTHROMBIN TIME PATIENT (test code = PTP) 11.6 SECONDS 9.3-12.9 N INTERNATIONAL NORMAL RATIO (test code = INR) 1.0 0.8-1.2 N TARGET INR BY INDICATION Indication INR1. Prophylaxis of venous thrombosis 2.0 - 3.0 (orthopedic surgery), Prophylaxis of venous thrombosis (other than high-risk surgery), Treatment of Deep Vein Thrombosis/Pulmonary Embolism, Prevention of systemic embolism - Tissue heart valves, Acute Myocardial Infarction (to prevent systemic embolism), Valvular heart disease, Atrial Fibrillation, Bileaflet mechanical valve in aortic position.2. Mechanical prosthetic valves (high risk), 2.5 - 3.5 Presence of Lupus Anticoagulant or Antiphospholipid Antibodies, Prevention of systemic embolism - Acute Myocardial Infarction (to prevent recurrent infarct). CBC W/AUTO [id number] 11:29:00* Test Item Value Reference Range Interpretation Comme nts WHITE BLOOD CELL (test code = WBC) 4.7 x10 3/uL 4.5-11.0 N RED BLOOD CELL (test code = RBC) 4.51 x10 6/uL 3.54-5.02 N HEMOGLOBIN (test code = HGB) 13.3 g/dL 11.0-15.0 N HEMATOCRIT (test code = HCT) 41.7 % 33.0-45.0 N MEAN CELL VOLUME (test code = MCV) 92.5 fL 81.0-99.0 N MEAN CELL HGB (test code = MCH) 29.5 pg 27.0-33.0 N MEAN CELL HGB CONCETRATION (test code = MCHC) 31.9 g/dL 33.0-37.0 L RED CELL DISTRIBUTION WIDTH CV (test code = RDW) 14.1 % 11.5-14.5 N RED CELL DISTRIBUTION WIDTH SD (test code = RDW-SD) 47.9 fL 37.0-54.0 N PLATELET COUNT (test code = PLT) 250 x10 3/uL 150-400 N MEAN PLATELET VOLUME (test c ode = MPV) 9.8 fL 7.0-9.0 H NEUTROPHIL % (test code = NT%) 61.3 % 56.0-77.0 N IMMATURE GRANULOCYTE % (test code = IG%) 0.2 % 0.0-2.0 N LYMPHOCYTE % (test code = LY%) 21.8 % 14.0-32.0 N MONOCYTE % (test code = MO%) 9.4 % 4.8-9.0 H EOSINOPHIL % (test code = EO%) 6.4 % 0.3-3.7 H BASOPHIL % (test code = BA%) 0.9 % 0.0-2.0 N NUCLEATED RBC % (test code = NRBC%) 0.0 % 0-0 N NEUTROPHIL # (test code = NT#) 2.86 x10 3/uL 2.0-7.6 N IMMATURE GRANULOCYTE # (test code = IG#) 0.01 x10 3/uL 0.00-0.03 N LYMPHOCYTE # (test code = LY#) 1.02 x10 3/uL 1.0-3.8 N MONOCYTE # (test code = MO#) 0.44 x10 3/uL 0.1-0.8 N EOSINOPHIL # (test code = EO#) 0.30 x10 3/uL 0.0-0.2 H BASOPHIL # (test code = BA#) 0.04 x10 3/uL 0.0-0.2 N NUCLEATED RBC # (test code = NRBC#) 0.00 x10 3/uL 0.0-0.1 N COAGULATION TIME [id number] 14:24:00* Test Item Value Reference Range Interpretation Comme [facility] COAGULATION TIME ACTIVATED (test code = ACT) 304 SECONDS Performed by certified hydraulic pile hammer operator at [facility] COAGULATION TIME [id number] 14:24:00* Test Item Value Reference Range Interpretation Comme [facility] COAGULATION TIME ACTIVATED (test code = ACT) 244 SECONDS Performed by certified hydraulic pile hammer operator at [facility] BASIC METABOLIC [id number] 12:07:00* Test Item Value Reference Range Interpretation Comme nts SODIUM (test code = NA) 137 mEq/L 134-147 N POTASSIUM (test code = K) 5.1 mEq/L 3.4-5.0 H CHLORIDE (test code = CL) 102 mEq/L 100-108 N CARBON DIOXIDE (test code = CO2) 31 mEq/l 21-33 N ANION GAP (test code = GAP) 9 0-20 N GLUCOSE (test code = GLU) 101 mg/dL 77-141 N BLOOD UREA NITROGEN (test code = BUN) 12 mg/dL 7-25 N GLOMERULAR FILTRATION RATE (test code = GFR) 89.6 70-80 H The Glomerular Filtration Rate is a calculated parameterbased on serum Creatinine, patient age and sex. GFR valuesless than 60 mL/min/1.73 square meters are indicative ofChronic Kidney Disease. Values less than 15 mL/min/1.73square meters indicate Kidney failure. The calculation forGFR is based on the CKD-EPI (2020) calculation. This formulais race indifferent and is the recommended formula for GFRby the National Kidney Foundation for Adults.The GFR will not calculate if the sex is unknown or if thepatient's age is <18 years. CREATININE (test code = CREAT) 0.7 mg/dL 0.6-1.3 N CALCIUM (test code = CA) 10.2 mg/dL 8.0-10.5 N PROTHROMBIN [id number] 11:47:00* Test Item Value Reference Range Interpretation Comme nts PROTHROMBIN TIME PATIENT (test code = PTP) 11.0 SECONDS 9.3-12.9 N INTERNATIONAL NORMAL RATIO (test code = INR) 1.0 0.8-1.2 N TARGET INR BY INDICATION Indication INR1. Prophylaxis of venous thrombosis 2.0 - 3.0 (orthopedic surgery), Prophylaxis of venous thrombosis (other than high-risk surgery), Treatment of Deep Vein Thrombosis/Pulmonary Embolism, Prevention of systemic embolism - Tissue heart valves, Acute Myocardial Infarction (to prevent systemic embolism), Valvular heart disease, Atrial Fibrillation, Bileaflet mechanical valve in aortic position.2. Mechanical prosthetic valves (high risk), 2.5 - 3.5 Presence of Lupus Anticoagulant or Antiphospholipid Antibodies, Prevention of systemic embolism - Acute Myocardial Infarction (to prevent recurrent infarct). CBC W/AUTO [id number] 11:35:00* Test Item Value Reference Range Interpretation Comme nts WHITE BLOOD CELL (test code = WBC) 6.8 x10 3/uL 4.5-11.0 N RED BLOOD CELL (test code = RBC) 4.73 x10 6/uL 3.54-5.02 N HEMOGLOBIN (test code = HGB) 14.0 g/dL 11.0-15.0 N HEMATOCRIT (test code = HCT) 45.3 % 33.0-45.0 H MEAN CELL VOLUME (test code = MCV) 95.8 fL 81.0-99.0 N MEAN CELL HGB (test code = MCH) 29.6 pg 27.0-33.0 N MEAN CELL HGB CONCETRATION (test code = MCHC) 30.9 g/dL 33.0-37.0 L RED CELL DISTRIBUTION WIDTH CV (test code = RDW) 13.2 % 11.5-14.5 N RED CELL DISTRIBUTION WIDTH SD (test code = RDW-SD) 47.2 fL 37.0-54.0 N PLATELET COUNT (test code = PLT) 250 x10 3/uL 150-400 N MEAN PLATELET VOLUME (test c ode = MPV) 9.5 fL 7.0-9.0 H NEUTROPHIL % (test code = NT%) 65.1 % 56.0-77.0 N IMMATURE GRANULOCYTE % (test code = IG%) 0.4 % 0.0-2.0 N LYMPHOCYTE % (test code = LY%) 14.0 % 14.0-32.0 N MONOCYTE % (test code = MO%) 13.5 % 4.8-9.0 H EOSINOPHIL % (test code = EO%) 6.6 % 0.3-3.7 H BASOPHIL % (test code = BA%) 0.4 % 0.0-2.0 N NUCLEATED RBC % (test code = NRBC%) 0.0 % 0-0 N NEUTROPHIL # (test code = NT#) 4.41 x10 3/uL 2.0-7.6 N IMMATURE GRANULOCYTE # (test code = IG#) 0.03 x10 3/uL 0.00-0.03 N LYMPHOCYTE # (test code = LY#) 0.95 x10 3/uL 1.0-3.8 L MONOCYTE # (test code = MO#) 0.92 x10 3/uL 0.1-0.8 H EOSINOPHIL # (test code = EO#) 0.45 x10 3/uL 0.0-0.2 H BASOPHIL # (test code = BA#) 0.03 x10 3/uL 0.0-0.2 N NUCLEATED RBC # (test code = NRBC#) 0.00 x10 3/uL 0.0-0.1 N Knee Left 3 ViewKnee Left 3 ViewShoulder Right 2 ViewShoulder Right 2 View Humerus RightHumerus Right Notes Date/Time Note Provider Source [facility]2025-07-16 00:00:00 [facility]2025-01-16 00:00:00 [facility]2025-01-08 13:49:[id number] [place] [address] PATIENT NAME: JAYCOB ROY ADMIT DATE: 10/15/24 ACCOUNT NO: [id number] ROOM NO: AGE: 78 REPORT TYPE: OPERATIVE REPORT SEX: F ADMITTING PHYSICIAN: ATTENDING PHYSICIAN:Sp Nunes MD OPERATION DATE: 10/15/2024 PREOPERATIVE DIAGNOSIS: POSTOPERATIVE DIAGNOSIS: PROCEDURE PERFORMED: 1. Selective peripheral angiogram of right lower extremity. 2. Balloon angioplasty of severe mid to distal superficial femoral artery, used a 5 x 120 mm drug-coated balloon. SURGEON: RENTAL SALESPERSON: ANESTHESIA: INDICATION: Peripheral vascular disease with significant claudication. ACCESS: Left common femoral artery, 6-Irish, closed with manual pressure. COMPLICATIONS: None. BLEEDING: Less than 50 mL. TOTAL SEDATION TIME: 1 hour, used fentanyl and Versed. PROCEDURE IN DETAIL: After risks, benefits, and alternatives were explained, the patient agreed to procedure, signed informed consent. The patient was brought into cardiac catheterization laboratory, prepped and draped in usual sterile fashion. Then, I accessed the left common femoral artery using micropuncture kit, ultrasound guidance, fluoroscopy, and placed a 6-Irish Kotlik sheath. Then, using a crossover catheter and Murtaugh Advantage wire, crossed to the other side and exchanged for 6-Irish Destination 45 cm sheath and performed angiogram and then took Murtaugh Advantage wire and advanced all the way distally and took 5 x 120 mm drug-coated balloon in the distal SFA and performed balloon angioplasty successfully. There was a focal dissection that is not flow limiting. Then, removed the wire. Final angiogram was satisfactory and removed the sheath. Manual pressure was used for closure with good hemostasis. The patient was sent to recovery in stable condition. FINDINGS: The right common femoral and left profunda is widely patent. Right proximal SFA is with luminal irregularities and 20-30% stenosis. There is a PATIENT NAME: JAYCOB ROY stent that has 50% in-stent restenosis and distally there is 70-80% focal stenosis, status post successful balloon angioplasty. Popliteal artery is normal. Anterior tibial and tibial trunk, posterior tibial and peroneal were all widely patent. CONCLUSION: Severe distal SFA stenosis, status post successful balloon angioplasty as above. Dictated By: Sp Nunes MD Date Dictated: 10/15/2024 13:49:17 Date Transcribed: 10/15/2024 14:10:36 /SUSAN Receipt ID: [id number] Authenticated by Sp Nunes MD On 11/26/2024 08:39:31 AM at 0839 PATIENT NAME: JAYCOB ROYY 10:26:[id number] [address] PATIENT NAME: JAYCOB ROY ADMIT DATE: 10/15/24 ACCOUNT NO: [id number] ROOM NO: AGE: 78 REPORT TYPE: eELECTROCARDIOGRAM REPORT SEX: F ADMITTING PHYSICIAN: ATTENDING PHYSICIAN:Sp Nunes MD Order: [id number] Test Reason : PRE PROCEDURE Test Date/Time Stamp: SunOct 15 2024 10:26:43 Blood Pressure : / mmHG Vent. Rate : 054 BPM Atrial Rate : 054 BPM P-R Int : 164 ms QRS Dur : 084 ms QT Int : 502 ms P-R-T Axes : 061 051 060 degrees QTc Int : 476 ms Sinus bradycardia Otherwise normal ECG When compared with ECG of 15-SEP-2024 11:21, Significant changes have occurred Confirmed by Christiana Johnson ([id number]) on 10/16/2024 6:43:26 AM Referred By: Self Referred Confirmed by:Christiana Johnson at 0643 PATIENT NAME: JAYCOB ROY 15:45:[id number] [place] [address] PATIENT NAME: JAYCOB ROY ADMIT DATE: 09/17/24 ACCOUNT NO: [id number] ROOM NO: AGE: 78 REPORT TYPE: OPERATIVE REPORT SEX: F ADMITTING PHYSICIAN: ATTENDING PHYSICIAN:Sp Nunes MD OPERATION DATE: 09/17/2024 PROCEDURE PERFORMED: 1. A selective peripheral angiogram of the left lower extremity. 2. Balloon angioplasty of severe in-stent stenosis of the proximal left SFA, used a 6 x 120 mm drug-coated balloon. 3. Balloon angioplasty of severe proximal to mid SFA stenosis followed by placement of a drug-eluting stent, self-expandable 6 x 60 mm, overlapped with the first stent and then postdilated both with a 6 x 60 mm balloon. Excellent angiographic results at the end. INDICATION: Peripheral vascular disease with claudication. COMPLICATIONS: None. BLEEDING: Less than 50 mL. Total sedation time was 1 hour, used fentanyl and Versed. DESCRIPTION OF PROCEDURE: After risks, benefits and alternatives were explained, the patient agreed to proceed and signed informed consent. The patient was brought into cardiac catheterization laboratory, prepped and draped in sterile fashion. Then, I accessed the right common femoral artery using micropuncture kit, ultrasound guidance, and fluoroscopy. I placed a 6-Irish Kotlik sheath and took a crossover catheter with the Glidewire Advantage crossed to the other side and exchanged for short 45 cm 6-Irish Destination sheath, placed it in the common femoral artery, performed a detailed angiogram of the left lower extremity and then gave systemic heparin to assure ACT level above 250 throughout the procedure. The Murtaugh Advantage wire was advanced across the area of stenosis, placed it in the distal SFA and then I used a 6 x 120 mm drug-coated balloon to treat the in-stent restenosis. The lesion expanded very well and then angiogram after that showed focal dissection distal to the stent and there was a place where there is a 60% to 70% stenosis next to it, so I placed a 6 x 60 mm drug-eluting self-expanding stent to overlap with the first one and then I took a 6 x 60 mm balloon, did post-dilation of the whole two stents together. Angiographic results at the end were excellent with RANDELL 3 flow. Then, removed the Murtaugh Advantage wire and the sheath and we used 6-Irish Mynx closure device for closure with good hemostasis. FINDINGS: 1. The proximal SFA is patent. The profunda is patent on the left side and there is a 90-95% in-stent restenosis of the ostial portion of the stent and PATIENT NAME: JAYCOB ROY about 60% in-stent restenosis or 50% in-stent stenosis throughout the stent, status post successful balloon angioplasty with drug-coated balloon as outlined above. Then, distal to the stent, there was a focal dissection and then distal to it there was about 60% to 70% stenosis. I placed a 6 x 60 mm self-expanding stent to overlap with the first one to cover the area of dissection and treated the 60% stenosis. 2. The distal SFA is with luminal irregularities. Popliteal artery is patent and the anterior tibial is patent and tibial trunk is patent and the peroneal as well as posterior tibial are patent, but they become small artery. CONCLUSION: Severe left SFA in-stent restenosis and severe focal stenosis of the stent, status post successful balloon angioplasty and stent placement as above. PLAN: Aspirin, Plavix, and high dose statin. Dictated By: Sp Nunes MD Date Dictated: 09/17/2024 15:45:32 Date Transcribed: 09/17/2024 20:36:44 SR/MARNIE Receipt ID: [id number] Authenticated by Sp Nunes MD On 10/08/2024 06:05:07 PM at 0605 PATIENT NAME: JAYCOB ROY 11:21:[id number] [place] [address] PATIENT NAME: JAYCOB ROY ADMIT DATE: ACCOUNT NO: [id number] ROOM NO: AGE: 78 REPORT TYPE: eELECTROCARDIOGRAM REPORT SEX: F ADMITTING PHYSICIAN: ATTENDING PHYSICIAN:Sp Nunes MD Order: [id number] Test Reason : PREOP Test Date/Time Stamp: SunSep 15 2024 11:21:24 Blood Pressure : / mmHG Vent. Rate : 076 BPM Atrial Rate : 076 BPM P-R Int : 164 ms QRS Dur : 088 ms QT Int : 392 ms P-R-T Axes : 074 083 076 degrees QTc Int : 441 ms Normal sinus rhythm Right atrial enlargement Borderline ECG No previous ECGs available Confirmed by JONATHAN PEREZ MD ([id number]) on 09/15/2024 8:17:48 PM Referred By: Sp Nunes Confirmed by:RENATO PEREZ MD at 2017 PATIENT NAME: JAYCOB ROY
[2025-05-26] MEDS ORDERED: METHYLPREDNISOLONE 125 MG INJ ONE (00:49)
[2025-05-26] MEDS ORDERED: MAGNESIUM SULFATE 1 gm IVPB 1 GM/100 ML BAG IV ONE (00:49)
[2025-05-26] MEDS ORDERED: IPRATROPIUM BROM 0.5MG/2.5ML ONE ×2 (00:49→01:57)
[2025-05-26] MEDS ORDERED: ALBUTEROL 2.5 MG/3 ML NEB SOL ONE ×2 (00:49→01:57)
[2025-05-26 00:57] LABS: Absolute Lymphocytes (CBC) 1.4 K/uL (0.7-4.9); Hematocrit 42.7 % (36.0-45.0); Hemoglobin 14.5 g/dL (12.0-15.0); MCH 31.0 pg (27.0-35.0); MCHC 34.0 g/dL (32.0-36.0); MCV 91.0 fL (80-100); MPV 7.8 fL (7.6-11.3); Nucleated RBC Absolute Count 0.0 (0-0); Nucleated Red Blood Cells % 0.2 % (0-0); RBC Red Blood Cell Count 4.69 M/uL (3.86-4.86); White Blood Count 5.80 thou/uL (4.3-10.9)
[2025-05-26 01:01] LABS: PT Prothrombin Time 10.8 SECONDS (10-13.0); PTT, Activated Partial Thromb 33.4 SECONDS (27.2-37.4); Protime INR 0.95
[2025-05-26 01:15] LABS: ALT/SGPT < 14 U/L (13-56); AST/SGOT 16 U/L (15-37); Albumin 3.6 g/dL (3.4-5.0); Albumin/Globulin Ratio 1.1 (1.1-1.8); Alkaline Phosphatase 68 U/L (45-117); Anion Gap 8.0 mEq/L (5.0-15.0); BUN Blood Urea Nitrogen 14 mg/dL (7-18); Globulin 3.2 g/dL (2.3-3.5); Glucose Level 126 mg/dL (74-106); NT PRO-BNP 150 pg/mL (<450); Potassium 4.0 mEq/L (3.5-5.1); Troponin High Sensitivity 9.0 pg/mL (<58.9)
[2025-05-26] MEDS ORDERED: CEFTRIAXONE 1000 MG/VIAL ONE (01:15)
[2025-05-26] MEDS ORDERED: NA CHLORIDE 0.9% 250 ML ONE (01:15)
[2025-05-26] MEDS ORDERED: AZITHROMYCIN 500 MG INJ IVPB ONE (01:15)
[2025-05-26] MEDS ORDERED: NA CHLORIDE 0.9% 50 ML ONE (01:16)
[2025-05-26 01:25] LABS: Influenza A Ag Negative; Influenza B Ag Negative; SARS-CoV-2 Antigen Rapid Res Negative (Negative)
[2025-05-26 02:39] LABS: Sqamous Epithelial <5 /HPF (None Seen); Urine Micro Reflex YN NO BILL MICROSCOPIC
--- NOTE | 2025-05-26 02:57 | ER ---
Nurse's Notes [facility] Name: Lidia Wall Age: 79 yrs Sex: Female : 1945 Arrival Date: 05/25/2025 Time: 23:53 Bed 8 Private MD: Diagnosis: COPD/ Chronic obstructive pulmonary disease with (acute) exacerbation Presentation: 05/26 00:19 Chief complaint: EMS states: Shortness of Breath x1day. Coronavirus screen: At this tb4 time, the client does not indicate any symptoms associated with coronavirus-19. Ebola Screen: No symptoms or risks identified at this time. Risk Assessment: Do you want to hurt yourself or someone else? Patient reports no desire to harm self or others. Onset of symptoms was May 25, 2025. 00:19 Method Of Arrival: EMS: [facility] tb4 00:19 Acuity: EMILY 3 tb4 05:26 Initial Sepsis Screen: Does the patient meet any 2 criteria? No. Patient's initial kd3 sepsis screen is negative. Does the patient have a suspected source of infection? No. Patient's initial sepsis screen is negative. Triage Assessment: 00:29 General: Appears distressed, uncomfortable, Behavior is cooperative, anxious. Pain: tb4 Denies pain. EENT: Throat is clear. 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 Full function Gait is unsteady. Respiratory: Airway is patent Trachea midline Respiratory effort is labored, Respiratory pattern is tachypnea. GI: No deficits noted. No signs and/or symptoms were reported involving the gastrointestinal system. : No signs and/or symptoms were reported regarding the genitourinary system. Historical: - Allergies: 00:29 NKDA; tb4 - Home Meds: 00:29 albuterol sulfate 90 mcg/actuation Inhl HFA Aerosol Inhaler [Active]; Bupropion Oral tb4 [Active]; paroxetine HCl 25 mg Oral Tb24 1 tab once daily [Active]; Plavix 75 mg Oral tab 1 tab once daily [Active]; Symbicort 160-4.5 mcg/actuation inhalation HFAA 2 puffs 2 times per day [Active]; rosuvastatin 10 mg Oral tab 1 tab once daily [Active]; Oxybutynin Chloride Oral [Active]; Lopressor Oral [Active]; 02:42 Keytruda intravenous every 3 weeks for Stage 4 lung cancer [Active]; prednisone 10 mg tb4 Oral tablet daily [Active]; aspirin 81 mg Oral tablet 1 tab daily [Active]; tramadol 50 mg Oral tablet every 6 hours for pain [Active]; - PMHx: 00:29 COPD; CVA; Hyperlipidemia; Hypertension; tb4 02:42 Lung Cancer Stage 4; tb4 - Immunization history:: Adult Immunizations up to date. - Infectious Disease History:: Denies. - Social history:: Smoking status: Patient reports the use of cigarette tobacco products, smokes one-half pack cigarettes per day. - Family history:: not pertinent. Screenin:33 [facility] ED Fall Risk Assessment (Adult) History of falling in the last 3 months, tb4 including since admission No falls in past 3 months (0 pts) Confusion or Disorientation No (0 pts) Intoxicated or Sedated No (0 pts) Impaired Gait Yes (1 pt) Mobility Assist Device Used No (0 pt) Altered Elimination No (0 pt) Score/Fall Risk Level 0 - 2 = Low Risk Oriented to surroundings, Maintained a safe environment. Abuse screen: Denies threats or abuse. Denies injuries from another. Nutritional screening: No deficits noted. Tuberculosis screening: No symptoms or risk factors identified. Assessment: :33 Reassessment: Patient is alert, oriented x 3, equal unlabored respirations, skin tb4 warm/dry/pink. General: Appears uncomfortable, ill, Behavior is calm, cooperative. Pain: Denies pain. 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 Full function Weakness in bilateral foot/feet Gait is unsteady, Speech is normal, Facial symmetry appears normal. Cardiovascular: Denies chest pain, Heart tones present Capillary refill < 3 seconds is brisk in bilateral. Respiratory: Reports shortness of breath at rest on exertion since X1 DAY Airway is patent Trachea midline Respiratory effort is unlabored. GI: No signs and/or symptoms were reported involving the gastrointestinal system. : No signs and/or symptoms were reported regarding the genitourinary system. EENT: No signs and/or symptoms were reported regarding the EENT system. Derm: Skin is intact, is healthy with good turgor, Skin is dry. Musculoskeletal: Circulation, motion, and sensation intact. Range of motion:. 02:12 Reassessment: Patient remains stable, oxygen at 3L nasal cannula, O2 97 Patient denies tb4 pain at this time. Patient states feeling better. Patient states symptoms have improved. General: Appears uncomfortable, Behavior is calm, cooperative. Respiratory: Airway is patent Trachea midline Respiratory effort is even, unlabored, Respiratory pattern is regular, symmetrical, Breath sounds with wheezes bilaterally. GI: No signs and/or symptoms were reported involving the gastrointestinal system. : No signs and/or symptoms were reported regarding the genitourinary system. EENT: No signs and/or symptoms were reported regarding the EENT system. Derm: No signs and/or symptoms reported regarding the dermatologic system. Skin is intact, is healthy with good turgor, Skin is normal, Skin temperature is warm. Vital Signs: 00:19 BP 172 / 88; Pulse 119; Resp 26; Pulse Ox 97% on 15 lpm Non-rebreather mask; Weight tb4 56.7 kg; Height 5 ft. 7 in. ; Pain 0/10; 00:30 BP 131 / 74; Pulse 110; Resp 23; Pulse Ox 22% on 3 lpm NC; Pain 0/10; tb4 01:37 BP 129 / 74; Pulse 80; Resp 18; Pulse Ox 98% on 3 lpm NC; Weight 56.7 kg; Height 5 ft. tb4 7 in. ; Pain 0/10; 02:39 BP 134 / 71; Pulse 86; Resp 20; Pulse Ox 97% on 3 lpm NC; Pain 0/10; tb4 03:15 BP 136 / 63; Pulse 77; Resp 20; Pulse Ox 97% on 3 lpm NC; Pain 10/10; tb4 04:20 BP 127 / 72; Pulse 99; Resp 18; Pulse Ox 99% on 3 lpm NC; Pain 5/10; tb4 01:37 Body Mass Index 19.58 (56.70 kg, 170.18 cm) tb4 00:19 Pain Scale: Adult tb4 00:30 Pain Scale: Adult tb4 01:37 Pain Scale: Adult tb4 02:39 Pain Scale: Adult tb4 03:15 Pain Scale: Adult tb4 04:20 Pain Scale: Adult tb4 03:15 c/o headache 07/17 tb4 [place] Coma Score: 04:09 Eye Response: spontaneous(4). Motor Response: obeys commands(6). Verbal Response: sp4 oriented(5). Total: 15. ED Course: 00:06 Patient arrived in ED. br2 00:21 Charli Sneed MD is Attending Physician. sp4 00:27 Triage completed. tb4 00:58 COVID-19 Ag + Flu A+B Ag Sent. rk3 00:59 glucose-126. rk3 01:00 Chest Single View XRAY In Process Unspecified. EDMS 01:33 No provider procedures requiring assistance completed. Inserted saline lock: 20 gauge tb4 in left antecubital area, using aseptic technique. Blood collected. Flushed with 10 mL NS. 01:33 Patient has correct armband on for positive identification. Bed in low position. Call tb4 light in reach. Side rails up X 1. Side rails up X2. Adult w/ patient. Client placed on continuous cardiac and pulse oximetry monitoring. NIBP monitoring applied. quality assurance monitor chassis on. Pulse ox on. Door closed. 02:55 Herminio Roldan, RN is Hospitalizing Provider. sp4 05:26 Marla Miguel, REAL is Primary Nurse. kd3 05:26 Patient admitted, IV remains in place. kd3 05:26 Provided Education on: admitting . kd3 05:27 Arm band placed on right wrist. kd3 Administered Medications: 00:58 Drug: Albuterol Inhalation 2.5 mg Inhalation once Route: Inhalation; tb4 01:43 Follow up: Response: No adverse reaction tb4 00:58 Drug: Ipratropium Inhalation Aerosol 0.5 mg Inhalation once Route: Inhalation; tb4 01:43 Follow up: Response: No adverse reaction tb4 01:08 Drug: Magnesium Sulfate IVPB 1 grams IVPB once over 1 hrs Route: IVPB; Infused Over: 1 tb4 hrs; Site: left antecubital; 02:11 Follow up: Response: No adverse reaction; IV Status: Completed infusion tb4 01:18 Drug: MethylPrednisoLONE IVP 125 mg IVP once Route: IVP; Site: left antecubital; tb4 01:44 Follow up: Response: No adverse reaction tb4 02:11 Drug: Rocephin - Rocephin (cefTRIAXone) IVPB 1 grams IVPB once over 30 mins; (mix in 50 tb4 mL NS) Route: IVPB; Infused Over: 30 mins; Site: left antecubital; 02:26 Follow up: Response: No adverse reaction; IV Status: Completed infusion tb4 02:11 Drug: Albuterol Inhalation 2.5 mg Inhalation once Route: Inhalation; tb4 03:05 Follow up: Response: No adverse reaction tb4 02:11 Drug: Ipratropium Inhalation Aerosol 0.5 mg Inhalation once Route: Inhalation; tb4 03:05 Follow up: Response: No adverse reaction tb4 02:26 Drug: Zithromax IVPB 500 mg IVPB once over 1 hrs; mix in 250 mL NS Route: IVPB; Infused tb4 Over: 1 hrs; Site: left antecubital; 03:36 Follow up: Response: No adverse reaction; IV Status: Completed infusion tb4 03:12 Drug: traMADol PO 100 mg PO once Route: PO; tb4 03:35 Follow up: Response: No adverse reaction; Pain is decreased; RASS: Alert and Calm (0) tb4 03:12 Drug: Ondansetron IVP 8 mg IVP once; over 2 minutes Route: IVP; Site: left antecubital; tb4 03:35 Follow up: Response: No adverse reaction; Nausea is decreased tb4 Medication: 01:33 VIS not applicable for this client. tb4 Outcome: 02:56 Decision to Hospitalize by Provider. sp4 05:26 Admitted to Med/surg accompanied by david kd3 05:26 Condition: stable 05:26 Discharge instructions given to patient, family, Instructed on the need for admit, Demonstrated understanding of instructions, follow-up care, 05:27 Patient left the ED. kd3 Signatures: Dispatcher [facility] ED[facility] Marla Miguel RN RN kd3 Charli Sneed MD MD sp4 Breonna Riggs RN RN br2 Basim Holden rk3 Faiza Thompson RN RN tb4
--- NOTE | 2025-05-26 02:57 | EDPHYS ---
Physician Documentation [facility] Name: Lidia Wall Age: 79 yrs Sex: Female : 1945 Arrival Date: 05/25/2025 Time: 23:53 Bed 8 Private MD: ED Physician Charli Sneed HPI: 05/26 00:22 This 79 yrs old Other Race Female presents to ER via Unassigned with complaints of Gen sp4 complaint . 03:02 History of stage IV lung cancer currently on Keytruda (pembrolizumab). sp4 04:11 Patient with history of COPD presents with worsening wheezing and dyspnea.. sp4 Historical: - Allergies: 00:29 NKDA; tb4 - Home Meds: 00:29 albuterol sulfate 90 mcg/actuation Inhl HFA Aerosol Inhaler [Active]; Bupropion Oral tb4 [Active]; paroxetine HCl 25 mg Oral Tb24 1 tab once daily [Active]; Plavix 75 mg Oral tab 1 tab once daily [Active]; Symbicort 160-4.5 mcg/actuation inhalation HFAA 2 puffs 2 times per day [Active]; rosuvastatin 10 mg Oral tab 1 tab once daily [Active]; Oxybutynin Chloride Oral [Active]; Lopressor Oral [Active]; 02:42 Keytruda intravenous every 3 weeks for Stage 4 lung cancer [Active]; prednisone 10 mg tb4 Oral tablet daily [Active]; aspirin 81 mg Oral tablet 1 tab daily [Active]; tramadol 50 mg Oral tablet every 6 hours for pain [Active]; - PMHx: 00:29 COPD; CVA; Hyperlipidemia; Hypertension; tb4 02:42 Lung Cancer Stage 4; tb4 - Immunization history:: Adult Immunizations up to date. - Infectious Disease History:: Denies. - Social history:: Smoking status: Patient reports the use of cigarette tobacco products, smokes one-half pack cigarettes per day. - Family history:: not pertinent. ROS: 04:11 Constitutional: Negative for fever, chills, and weight loss, positive for dyspnea and sp4 cough 04:11 All other systems are negative, Exam: 04:09 Constitutional: Thin appearing, ill-appearing female nontoxic, signs of moderate sp4 physical deconditioning Head/Face: Normocephalic, atraumatic. Eyes: Pupils equal round and reactive to light, extra-ocular motions intact. Lids and lashes normal. Conjunctiva and sclera are not injected. Cornea within normal limits. Periorbital areas with no swelling, redness, or edema. ENT: Nares patent. No nasal discharge, no septal abnormalities noted. Tympanic membranes are normal and external auditory canals are clear. Oropharynx with no redness, swelling, or masses, exudates, or evidence of obstruction, uvula midline. Mucous membranes moist. Neck: Trachea midline, no thyromegaly or masses palpated, and no cervical lymphadenopathy. Supple, full range of motion without nuchal rigidity, or vertebral point tenderness. Chest/axilla: Normal chest wall appearance and motion. Nontender with no deformity. No lesions are appreciated. Cardiovascular: Regular rate and rhythm with a normal S1 and S2. No gallops, murmurs, or rubs. No pulse deficits. Respiratory: Lungs have equal breath sounds bilaterally, dyspnea, tachypnea, positive accessory muscle use, positive diffuse expiratory wheezes in all lung adan. Abdomen/GI: Soft, with normal bowel sounds. No distension or tympany. No guarding or rebound. No evidence of tenderness throughout. Back: No spinal tenderness. No costovertebral tenderness. Skin: Warm, dry with normal turgor. Normal color with no rashes, no lesions, and no evidence of cellulitis. MS/ Extremity: Pulses equal, no cyanosis. Neurovascular intact. Full, normal range of motion. Neuro: Awake and alert, GCS 15, oriented to person, place, time, and situation. Cranial nerves II-XII grossly intact. Motor strength 5/5 in all extremities. Sensory grossly intact. Psych: Awake, alert, with orientation to person, place and time. Behavior, mood, and affect are within normal limits 04:09 ECG was reviewed by the Attending Physician. EKG 0003 sinus tachycardia rate 117, no ST elevation or depression, Vital Signs: 00:19 BP 172 / 88; Pulse 119; Resp 26; Pulse Ox 97% on 15 lpm Non-rebreather mask; Weight tb4 56.7 kg; Height 5 ft. 7 in. ; Pain 0/10; 00:30 BP 131 / 74; Pulse 110; Resp 23; Pulse Ox 22% on 3 lpm NC; Pain 0/10; tb4 01:37 BP 129 / 74; Pulse 80; Resp 18; Pulse Ox 98% on 3 lpm NC; Weight 56.7 kg; Height 5 ft. tb4 7 in. ; Pain 0/10; 02:39 BP 134 / 71; Pulse 86; Resp 20; Pulse Ox 97% on 3 lpm NC; Pain 0/10; tb4 03:15 BP 136 / 63; Pulse 77; Resp 20; Pulse Ox 97% on 3 lpm NC; Pain 10/10; tb4 04:20 BP 127 / 72; Pulse 99; Resp 18; Pulse Ox 99% on 3 lpm NC; Pain 5/10; tb4 01:37 Body Mass Index 19.58 (56.70 kg, 170.18 cm) tb4 00:19 Pain Scale: Adult tb4 00:30 Pain Scale: Adult tb4 01:37 Pain Scale: Adult tb4 02:39 Pain Scale: Adult tb4 03:15 Pain Scale: Adult tb4 04:20 Pain Scale: Adult tb4 03:15 c/o headache 10/10 tb4 [place] Coma Score: 04:09 Eye Response: spontaneous(4). Motor Response: obeys commands(6). Verbal Response: sp4 oriented(5). Total: 15. MDM: 00:24 Medical Screening Exam initiated sp4 02:49 ED course: INDICATION: Cough;Dyspnea COMPARISON: No existing relevant imaging studies sp4 are available FINDINGS: Single frontal view of the chest was obtained. SUPPORT DEVICES: None HEART/MEDIASTINUM: Cardiomediastinal contours are normal. LUNGS/PLEURA: Mildly prominent pulmonary interstitial markings. No large pleural effusion or pneumothorax. OTHER: Bilateral breast implants. Dorsal spinal column stimulator leads noted. IMPRESSION: Mild pulmonary edema versus chronic interstitial changes. Electronically signed by: Daniel Riojas DO 05/26/2025 02:40 AM. 04:11 Differential Diagnosis altered mental status, sepsis, flu, Positive for cough. Data sp4 reviewed: vital signs, nurses notes, old medical records, lab test result(s), EKG, radiologic studies, plain films. Consideration of Admission/Observation Patient was admitted/placed on observation. Escalation of care including admission/observation considered. Management of patient was discussed with the following: Hospitalist: Admission team.. ED course: Sepsis reevaluation complete. Patient was administered 30 mL/kg fluid bolus. Patient feels improved. Will initiate Rocephin and Zithromax.. 05/26 00:22 Order name: BNP; Complete Time: 01:23 kb 05/26 00:22 Order name: Blood Culture Adult (2) kb 05/26 00:22 Order name: CBC with Diff; Complete Time: 01:23 kb 05/26 00:22 Order name: CMP; Complete Time: :23 kb 05/26 00:22 Order name: Lactate w/ 2H reflex if indic.; Complete Time: :23 kb 05/26 00:22 Order name: Protime (+inr); Complete Time: :23 kb 05/26 00:22 Order name: Ptt, Activated; Complete Time: :23 kb 05/26 00:22 Order name: Troponin HS; Complete Time: 01:23 kb 05/26 00:41 Order name: COVID-19 Ag + Flu A+B Ag; Complete Time: 01:36 sp4 05/26 01:08 Order name: Glucose, Ancillary Testing; Complete Time: 01:23 EDMS 05/26 01:46 Order name: UA W/ Microscopic; Complete Time: 02:49 sp4 05/26 00:22 Order name: Chest Single View XRAY kb 05/26 00:22 Order name: EKG; Complete Time: 00:23 kb 05/26 00:22 Order name: Accucheck; Complete Time: 00:58 kb 05/26 00:22 Order name: Cardiac monitoring; Complete Time: 00:50 kb 05/26 00:22 Order name: EKG - Nurse/Tech; Complete Time: 00:50 kb 05/26 00:22 Order name: IV Saline Lock - Large Bore; Complete Time: 00:50 kb 05/26 00:22 Order name: Labs collected and sent; Complete Time: 00:50 kb 05/26 00:22 Order name: O2 Per Protocol; Complete Time: 00:50 kb 05/26 00:22 Order name: O2 Sat Monitoring; Complete Time: 00:50 kb 05/26 00:22 Order name: Vital Signs; Complete Time: 00:51 kb EC:03 Rate is 117 beats/min. Rhythm is regular, Sinus tachycardia. QRS [place] is Normal. PA sp4 interval is normal. QRS interval is normal. QT interval is normal. No Q waves. T waves are Normal. No ST changes noted. Clinical impression: No evidence of ischemia. Interpreted by me. Reviewed by me. Administered Medications: 00:58 Drug: Albuterol Inhalation 2.5 mg Inhalation once Route: Inhalation; tb4 01:43 Follow up: Response: No adverse reaction tb4 00:58 Drug: Ipratropium Inhalation Aerosol 0.5 mg Inhalation once Route: Inhalation; tb4 01:43 Follow up: Response: No adverse reaction tb4 01:08 Drug: Magnesium Sulfate IVPB 1 grams IVPB once over 1 hrs Route: IVPB; Infused Over: 1 tb4 hrs; Site: left antecubital; 02:11 Follow up: Response: No adverse reaction; IV Status: Completed infusion tb4 01:18 Drug: MethylPrednisoLONE IVP 125 mg IVP once Route: IVP; Site: left antecubital; tb4 01:44 Follow up: Response: No adverse reaction tb4 02:11 Drug: Rocephin - Rocephin (cefTRIAXone) IVPB 1 grams IVPB once over 30 mins; (mix in 50 tb4 mL NS) Route: IVPB; Infused Over: 30 mins; Site: left antecubital; 02:26 Follow up: Response: No adverse reaction; IV Status: Completed infusion tb4 02:11 Drug: Albuterol Inhalation 2.5 mg Inhalation once Route: Inhalation; tb4 03:05 Follow up: Response: No adverse reaction tb4 02:11 Drug: Ipratropium Inhalation Aerosol 0.5 mg Inhalation once Route: Inhalation; tb4 03:05 Follow up: Response: No adverse reaction tb4 02:26 Drug: Zithromax IVPB 500 mg IVPB once over 1 hrs; mix in 250 mL NS Route: IVPB; Infused tb4 Over: 1 hrs; Site: left antecubital; 03:36 Follow up: Response: No adverse reaction; IV Status: Completed infusion tb4 03:12 Drug: traMADol PO 100 mg PO once Route: PO; tb4 03:35 Follow up: Response: No adverse reaction; Pain is decreased; RASS: Alert and Calm (0) tb4 03:12 Drug: Ondansetron IVP 8 mg IVP once; over 2 minutes Route: IVP; Site: left antecubital; tb4 03:35 Follow up: Response: No adverse reaction; Nausea is decreased tb4 Disposition: 04:12 Chart complete. sp4 Disposition Summary: 05/26/25 02:56 Hospitalization Ordered Notes: Hospitalization Status: Inpatient Admission sp4 Provider: Herminio Roldan sp4 Location: Telemetry/MedSurg (Inpatient) sp4 Condition: Stable sp4 Problem: new sp4 Symptoms: have improved sp4 Bed/Room Type: Standard sp4 Room Assignment: 408(05/26/25 04:04) kmf Diagnosis - COPD/ Chronic obstructive pulmonary disease with (acute) exacerbation sp4 Forms: - Medication Reconciliation Form sp4 - SBAR form sp4 - Leadership Thank You Letter sp4 Signatures: Dispatcher [employer] EDMS Precious gNuyen, CLAM SORTER-C Charli Israel MD MD sp4 Vanessa Jovel kmf Faiza Thompson RN RN tb4 Corrections: (The following items were deleted from the chart) 04:04 02:56 sp4 kmf
--- NOTE | 2025-05-26 03:00 | RAD REPORT ---
INDICATION: Cough;Dyspnea COMPARISON: No existing relevant imaging studies are available FINDINGS: Single frontal view of the chest was obtained. SUPPORT DEVICES: None HEART/MEDIASTINUM: Cardiomediastinal contours are normal. LUNGS/PLEURA: Mildly prominent pulmonary interstitial markings. No large pleural effusion or pneumoth orax. OTHER: Bilateral breast implants. Dorsal spinal column stimulator leads noted. IMPRESSION: Mild pulmonary edema versus chronic interstitial changes. Electronically signed by: Daniel Riojas DO 05/26/2025 02:40 AM CDT NR Due to temporary technical issues with the PACS/RxVantage reporting system, reports are being signed by the in-house radiologist without review as a courtesy to ensure prompt reporting the the [facility] radiologist is fully responsible for the content of the report. Transcribed Date/Time: 05/26/2025 2:59 AM
[2025-05-26] MEDS ORDERED: ONDANSETRON 4 MG/2 ML VIAL ONE ×2 (03:01→03:02)
[2025-05-26] MEDS ORDERED: TRAMADOL HCL 50 MG TAB ONE (03:02)
--- NOTE | 2025-05-26 03:56 | P.HP ---
Certification for Inpatient Patient admitted to: Inpatient With expected LOS: >2 Midnights Patient will require the following post-hospital care: None Practitioner: I am a practitioner with admitting privileges, knowledge of patient current condition, hospital course, and medical plan of care. Services: Services provided to patient in accordance with Admission requirements found in Title 42 Section 412.3 of the Code of Federal Regulations Patient History Date of Service: 05/26/25 Reason for admission: Acute COPD Exacerbation. History of Present Illness: Patient is a 79-year-old female with past medical history of stage IV lung cancer diagnosed in November 2023 and currently receiving chemotherapy Keytruda every 3 weeks, essential hypertension, chronic cigarette smoker for more than 50 years, COPD, hypercholesterolemia, who presents to the ER tonight complaining of worsening shortness of breath with associated expiratory and inspiratory wheez ing. Patient states she usually occasionally have shortness of breath but mostly on exertion, states she started having more severe shortness of breath yesterday, states her shortness of breath progressively worsening today, and states she had the shortness of breath both at rest, and even with minimal exertion, with profound bilateral expiratory and inspiratory wheezing, which then prompted her to be brought to the ER. Upon arrival to ER, patient was in severe respiratory distress with audible expiratory and inspiratory wheezing, received nebulizer treatment, was placed on 3 L of oxygen. When patient was seen for admission assessment, she was fully awake, alert and oriented x 3, denies of any respiratory distress at this time, states she feels much better after receiving nebulizer treatment and put on oxygen, patient still have bilateral expiratory wheezing on assessment. Discussed with the patient about nicotine patch, and patient has accepted to proceed with the patch. Patient appears not to be in any acute distress this time. Discussed patient CODE STATUS, both patient and daughter present at bedside has opted for a full code. Allergies No Known Allergies Allergy (Verified 04/02/25 14:13) Home Medications: Clopidogrel Bisulfate [Plavix] 1 tab PO DAILY 02/01/16 Albuterol Sulfate [Proair Hfa] 2 puff IH Q6HR PRN 10/27/19 Fluticasone/Umeclidin/Vilanter [Trelegy Ellipta 100-62.5-25] 1 each IH DAILY 10/27/19 oxyBUTYnin chloride [Oxybutynin Chloride] 5 mg PO BID 01/14/21 Bupropion *Xl* [Wellbutrin XL*] 1 tab PO BID 11/12/23 Paroxetine HCl [Paxil Cr] 25 mg PO DAILY 11/12/23 Rosuvastatin [Crestor*] 20 mg PO DAILY 11/12/23 Losartan Potassium [Cozaar] 25 mg PO DAILY 01/24/24 Metoprolol Tartrate [Lopressor] 50 mg PO BID 01/24/24 Ondansetron [Zofran (Odt)*] 4 mg PO PRN PRN 01/24/24 Tramadol HCl [Ultram] 50 mg PO Q6HP PRN 04/02/25 predniSONE [Deltasone] 10 mg PO DAILY 04/02/25 - Past Medical/Surgical History Diabetic: No -: CVA -: COPD -: Hypertension -: High cholesterol -: back surg -: hysterectomy -: neck surg -: TENS placement -: Trigger Fingers surgery - Social History Smoking Status: Current every day smoker (Has been smoking for more than 50 years) Smoking therapy provided: Yes Patient receptive to therapy: Yes (Will order nicotine patch) Alcohol use: Yes CD- Drugs: No Caffeine use: Yes Place of Residence: Home Review of Systems 10-point ROS is otherwise unremarkable Respiratory: Cough, Shortness of Breath, SOB with Excertion (and at rest), Wheezing Physical Examination - Physical Exam General: In no apparent distress, Oriented x3, Cooperative HEENT: Atraumatic, Normocephalic, PERRLA Neck: Supple, 2+ carotid pulse no bruit, Without JVD or thyroid abnormality Respiratory: Diminished, Crackles/rales, Expiratory wheezes, Inspiratory wheezes Cardiovascular: No edema, Normal pulses, Regular rate/rhythm, Normal S1 S2, No gallops Capillary refill: <2 Seconds Gastrointestinal: Normal bowel sounds, Soft and benign, Non-distended, W/out hepatomegaly, No ascites Musculoskeletal: No clubbing, No swelling, No contractures, No erythema, No tenderness, No warmth Integumentary: No rashes, No breakdown, No significant lesion, No tenderness/swelling, No erythema, No warmth, No cyanosis Neurological: Normal speech, Normal strength at 5/5 x4 extr, Normal tone, Sensation intact, Cranial nerves 3-12 intact, Normal reflexes 2+, Normal affect Lymphatics: No axilla or inguinal lymphadenopathy - Studies Laboratory Data (last 24 hrs) 05/26/25 05/26/25 05/26/25 00:30 00:30 00:30 WBC 5.80 Hgb 14.5 Hct 42.7 Plt Count 211 PT 10.8 INR 0.95 APTT 33.4 Sodium 142 Potassium 4.0 BUN 14 Creatinine 0.74 Glucose 126 H Total Bilirubin 0.3 AST 16 ALT < 14 Alkaline Phosphatase 68 Female Exam - Breasts Breasts: Normal configuration Assessment and Plan - Plan Patient is a 79-year-old female admitted to inpatient with diagnosis of acute COPD exacerbation, with acute hypoxic respiratory failure. Patient currently on 3 L of oxygen. (1)Acute COPD exacerbation with hypoxic respiratory failure. -O2 3 L can titrate according to the patient demand to maintain O2 saturation above 90%. -Bivona 15 mcg nebulizer twice daily. -Prednisone 20 mg p.o daily. -DuoNeb every 6 hours as needed. -Levaquin 500 mg p.o. daily. -Consult tire man Dr. Riley (2)Nicotine use disorder. Patient has been smoking for more than 50 years plus.. -After discussing with the patient, she opted for a nicotine patch at this time. (3)Chronic/hypercholesterolemia. -Patient medications to be resumed after reconciliation is done. (4)Explained the entire treatment plan to the patient, and daughter present at the bedside, solicit questions answered and voiced understanding. Discharge Plan: Home Plan to discharge in: Greater than 2 days - Advance Directives Does patient have a Living Will: No Does patient have a Durable POA for Healthcare: No - Code Status/Comfort Care Code Status Assessed: Yes Code Status: Full Code Critical Care: No Time Spent Managing Pts Care (In Minutes): 55
[2025-05-26 05:47] VITALS: BMI 20.8
[2025-05-26] MEDS: IPRATROPIUM BROM 0.5MG/2.5ML NEB PRN (05:50)
[2025-05-26] MEDS: ALBUTEROL 2.5 MG/3 ML NEB SOL NEB PRN (05:50)
[2025-05-26] MEDS: ARFORMOTEROL TARTRATE 15 MCG/2 ML VIAL.NEB NEB SCH (07:57)
[2025-05-26] MEDS: levoFLOXacin 500 MG TAB PO SCH (08:57)
[2025-05-26] MEDS: predniSONE 20 MG TAB PO SCH (08:57)
[2025-05-26] MEDS: NICOTINE 21 MG/PAT TD SCH (08:57)
[2025-05-26] MEDS: ENOXAPARIN 40 MG/0.4 ML SQ SCH (08:58)
[2025-05-26] MEDS: METHYLPREDNISOLONE 125 MG INJ IV ONE (14:50)
[2025-05-26] MEDS: CLOPIDOGREL 75 MG TABLET PO SCH (16:25)
[2025-05-26] MEDS: METOPROLOL TAR 50 MG TAB PO SCH (16:25)
[2025-05-26] MEDS: ACETAMINOPHEN 325 MG TABLET PO PRN (16:25)
[2025-05-26] MEDS: IPRATROPIUM BROM 0.5MG/2.5ML NEB ONE (16:29)
[2025-05-26] MEDS: ALBUTEROL 2.5 MG/3 ML NEB SOL NEB ONE (16:29)
[2025-05-26] MEDS: METHYLPREDNISOLONE 40 MG INJ IV SCH (17:34)
[2025-05-26] MEDS: ALBUTEROL 2.5 MG/3 ML NEB SOL NEB SCH (20:10)
[2025-05-26] MEDS: IPRATROPIUM BROM 0.5MG/2.5ML NEB SCH (20:10)
[2025-05-26] MEDS: BUPROPION HCL XL 150 MG TAB PO SCH (20:13)
[2025-05-26] MEDS: ROSUVASTATIN 10 MG TAB PO SCH (20:13)
[2025-05-27 07:45] LABS: Absolute Lymphocytes (CBC) 0.7 K/uL (0.7-4.9); Hematocrit 42.7 % (36.0-45.0); Hemoglobin 14.6 g/dL (12.0-15.0); MCH 31.7 pg (27.0-35.0); MCHC 34.3 g/dL (32.0-36.0); MCV 92.3 fL (80-100); MPV 8.2 fL (7.6-11.3); Nucleated RBC Absolute Count 0.0 (0-0); Nucleated Red Blood Cells % 0.0 % (0-0); RBC Red Blood Cell Count 4.63 M/uL (3.86-4.86); White Blood Count 8.40 thou/uL (4.3-10.9)
[2025-05-27 07:48] LABS: AST/SGOT 14 U/L (15-37); Albumin 3.4 g/dL (3.4-5.0); Albumin/Globulin Ratio 1.0 (1.1-1.8); Alkaline Phosphatase 60 U/L (45-117); Anion Gap 6.5 mEq/L (5.0-15.0); BUN Blood Urea Nitrogen 14 mg/dL (7-18); Globulin 3.3 g/dL (2.3-3.5); Glucose Level 134 mg/dL (74-106); Magnesium 2.5 mg/dL (1.6-2.4); Potassium 5.5 mEq/L (3.5-5.1)
[2025-05-27 07:53] LABS: ALT/SGPT < 14 U/L (13-56)
[2025-05-27] MEDS: ROFLUMILAST 500 MCG TABLET PO SCH (08:37)
[2025-05-27] MEDS: LOSARTAN POTASSIUM 50 MG TABLET PO SCH (08:38)
[2025-05-27] MEDS: ASPIRIN EC 81 MG TAB PO SCH (08:38)
[2025-05-27] MEDS: TRAMADOL HCL 50 MG TAB PO PRN (08:39)
[2025-05-27] MEDS: Fluticasone/Umeclidin/Vilanter [Trelegy Ellipta 100-62.5-25] Blst.W.Dev *PT OWN MED IH SCH (08:40)
[2025-05-27] MEDS: PAROXETINE HCL 25 MG PO SCH (08:41)
[2025-05-27] MEDS ORDERED: HOME MED 1 EA UNK (Aspirin [Aspirin] 81 MG Tablet) PO SCH (09:00)
[2025-05-27] MEDS ORDERED: HOME MED 1 EA UNK (Losartan Potassium [Cozaar] 25 MG Tablet) PO SCH (09:00)
[2025-05-27 10:34] LABS: Blood Morphology Comment NOT SEEN (NOT SEEN); White Blood Cell Scan OK (OK)
--- NOTE | 2025-05-27 12:36 | P.CNS ---
Date of Consult: 05/27/25 Reason for Consult: COPD exacerbation Chief Complaint: Acute COPD Exacerbation. History of Present Illness: Patient is 79 years of age with a history of COPD using Trelegy at home but worse in the past 2 weeks increasing cough congestion shortness of breath he is on Keytruda no significant change since admission compliant with the trilogy at home Allergies No Known Allergies Allergy (Verified 04/02/25 14:13) Home Medications: Clopidogrel Bisulfate [Plavix] 1 tab PO DAILY 02/01/16 Albuterol Sulfate [Proair Hfa] 2 puff IH Q6HR PRN 10/27/19 Fluticasone/Umeclidin/Vilanter [Trelegy Ellipta 100-62.5-25] 1 each IH DAILY 10/27/19 oxyBUTYnin chloride [Oxybutynin Chloride] 5 mg PO BID 01/14/21 Bupropion *Xl* [Wellbutrin XL*] 1 tab PO BID 11/12/23 Paroxetine HCl [Paxil Cr] 25 mg PO DAILY 11/12/23 Rosuvastatin [Crestor*] 20 mg PO BEDTIME 11/12/23 Losartan Potassium [Cozaar] 25 mg PO DAILY 01/24/24 Metoprolol Tartrate [Lopressor] 50 mg PO BID 01/24/24 Tramadol HCl [Ultram] 50 mg PO Q6HP PRN 04/02/25 predniSONE [Deltasone] 10 mg PO DAILY 04/02/25 Aspirin 81 mg PO DAILY 05/26/25 Roflumilast 500 mcg PO DAILY 05/26/25 - Past Medical/Surgical History Diabetic: No -: CVA -: COPD -: Hypertension -: High cholesterol -: Lung CA -: back surg -: hysterectomy -: neck surg -: TENS placement -: Trigger Fingers surgery - Social History Smoking Status: Current every day smoker Alcohol use: No CD- Drugs: No Caffeine use: Yes Place of Residence: Home Review of Systems General: Weakness Respiratory: Cough, Shortness of Breath Physical Examination Temp Pulse Resp BP Pulse Ox 97.6 F 64 18 142/61 H 98 05/27/25 12:00 05/27/25 12:00 05/27/25 12:00 05/27/25 12:00 05/27/25 12:00 General: Alert, Oriented x3 Respiratory: Clear to auscultation bilaterally, Diminished Cardiovascular: No edema, Regular rate/rhythm, Normal S1 S2 - Problems (1) COPD exacerbation Onset Date: 02/01/16 Current Visit: No Status: Acute Plan: Patient is 79 years of age with a history of COPD admitted with an exacerbation she has been treated for her lung cancer chest x-ray is clear and there is no lung mass no evidence of pneumonia vital signs oxygenation satisfactory laboratory data reviewed no active evidence of sepsis recommend CT pulmonary angiogram continue with bronchodilators 1 dose of Lasix echocardiogram high risk for thromboembolism after consider side effect of pneumonitis from Keytruda
[2025-05-27] MEDS: FUROSEMIDE 20 MG/ 2ML VIAL IV ONE (13:36)
--- NOTE | 2025-05-27 21:01 | RAD REPORT ---
EXAM: CT Chest For Pe Angio TECHNIQUE: CT angiogram of the chest was performed following intravenous contrast administration, inc luding sagittal and coronal as well as maximum intensity projection reformats. One or more of the following dose reduction techniques were used: Automated exposure control, adjustment of the mA and k V according to patient size, and iterative reconstruction. Unless otherwise specified, incidental findings do not require dedicated imaging follow-up. INDICATION: [facility] RO PE N COMPARISON: 05/26/2025 chest radiograph. PET/CT 04/30/2025. CT chest 02/09/2024. FINDINGS: LINES/TUBES: None. PULMONARY ARTERIES: Main pulmonary arteries are normal in caliber. No filling defects within the pul monary arteries to suggest pulmonary embolus. LUNGS AND AIRWAYS: Moderate centrilobular emphysematous changes left upper lobe peripheral pleural-ba sed nodule measuring 2.5 x 2.5 cm in greatest axial dimensions. An anterior pleural-based ovoid nodule measuring 1.4 x 1.3 cm is also noted. These both appear stable compared to the most recent PET /CT. Crescentic opacity along the peripheral right middle lobe, in the region of previously visualized stellate nodular opacity. 5 mm rounded nodule in the lower aspects of the right upper lobe anteriorly on axial image 74, stable. PLEURA: No effusion or pneumothorax. HEART AND MEDIASTINUM: The visualized thyroid gland is normal. No mediastinal, hilar, or axillary lym phadenopathy. Heart is unremarkable. No pericardial effusion. SOFT TISSUES AND BONES: No acute osseous abnormality. Stable anterior wedge compression deformities m ost notably at T7, and to lesser extent at T12 and T11 with sequelae of vertebral augmentation at T12, stable compared to the prior PET/CT. UPPER ABDOMEN: Unremarkable. Bilateral breast implants in place. IMPRESSION: No evidence of acute central pulmonary emboli. Stable peripheral nodules in the mid left upper lobe and anterior apical right lower lobe, as well as likely posttreatment changes in the right middle lobe. Multilevel wedge compression deformities of the thoracic spine are also stable.
[2025-05-28 04:38] LABS: Absolute Lymphocytes (CBC) 0.8 K/uL (0.7-4.9); Hematocrit 43.7 % (36.0-45.0); Hemoglobin 14.8 g/dL (12.0-15.0); MCH 31.1 pg (27.0-35.0); MCHC 33.8 g/dL (32.0-36.0); MCV 92.0 fL (80-100); MPV 7.7 fL (7.6-11.3); Nucleated RBC Absolute Count 0.0 (0-0); Nucleated Red Blood Cells % 0.1 % (0-0); RBC Red Blood Cell Count 4.74 M/uL (3.86-4.86); White Blood Count 9.90 thou/uL (4.3-10.9)
[2025-05-28 04:53] LABS: AST/SGOT 14 U/L (15-37); Albumin 3.6 g/dL (3.4-5.0); Albumin/Globulin Ratio 1.1 (1.1-1.8); Alkaline Phosphatase 59 U/L (45-117); Anion Gap 8.2 mEq/L (5.0-15.0); BUN Blood Urea Nitrogen 21 mg/dL (7-18); Globulin 3.3 g/dL (2.3-3.5); Glucose Level 127 mg/dL (74-106); Magnesium 2.4 mg/dL (1.6-2.4); Potassium 4.2 mEq/L (3.5-5.1)
[2025-05-28] MEDS: ALBUTEROL INHALER 200 PUFF/6.7 GM IH PRN (04:53)
[2025-05-28 04:56] LABS: ALT/SGPT < 14 U/L (13-56)
--- NOTE | 2025-05-28 11:42 | ECHO ---
HEIGHT: 5 ft 7 in WEIGHT: 125 lb 0 oz DATE OF STUDY: 05/28/[address]: Igor Riley MD 2-DIMENSIONAL: YES M.MODE: YES DOPPLER: YES COLOR FLOW: YES TDS: YES PORTABLE: DEFINITY: BUBBLE STUDY: DIAGNOSIS: RESPIRATORY DISTRESS CARDIAC HISTORY: CATHERIZATION: NO SURGERY: NO PROSTHETIC VALVE: NO PACEMAKER: NO MEASUREMENTS (cm) DIASTOLIC (NORMALS) SYSTOLIC (NORMALS) IVSd 1.0 (0.6-1.2) LA Diam 2.5 (1.9-4.0) LVEF 60-65% LVIDd 3.9 (3.5-5.7) LVIDs 2.4 (2.0-3.5) %FS 38% LVPWd 1.0 (0.6-1.2) Ao Diam 3.1 (2.0-3.7) 2 DIMENSIONAL ASSESSMENT: RIGHT ATRIUM: NORMAL LEFT ATRIUM: NORMAL RIGHT VENTRICLE: NORMAL LEFT VENTRICLE: NORMAL TRICUSPID VALVE: TRACE TRICUSPID REGURGITATION MITRAL VALVE: TRACE MITRAL REGURGITATION PULMONIC VALVE: NORMAL AORTIC VALVE: NORMAL PERICARDIAL EFFUSION: NONE AORTIC ROOT: NORMAL LEFT VENTRICULAR WALL MOTION: NORMAL DOPPLER/COLOR FLOW: GRADE I DIASTOLIC DYSFUNCTION COMMENTS: 1. NORMAL LEFT VENTRICULAR SYSTOLIC FUNCTION, EJECTION FRACTION 60-65%, NORMAL WALL MOTION 2. GRADE I DIASTOLIC DYFUNCTION 3. NORMAL FILLING PRESSURE (RIGHT ATRIAL PRESSURE 0-5 mmHg) TECHNOLOGIST: JOSÉ TORREZ
--- NOTE | 2025-05-28 12:36 | P.PN ---
Subjective Date of Service: 05/28/25 Chief Complaint: Acute COPD Exacerbation. No change worse. Very SOB Review of Systems General: Weakness Respiratory: Shortness of Breath Physical Examination - Vital Signs Temperature: 97.9 F Blood Pressure: 127/55 Pulse: 70 Respirations: 16 Pulse Ox (%): 96 - Physical Exam General: Alert, Moderate distress Respiratory: Clear to auscultation bilaterally, Diminished Cardiovascular: No edema, Normal S1 S2 Assessment And Plan - Current Problems (Diagnosis) (1) COPD exacerbation Onset Date: 02/01/16 Current Visit: No Status: Acute Plan: AW COPD exacerbation.CT scan . ECHO normal Grade 1 diastolic dysfunction. Labs reviewed. Ass Sprionolactone and reduce solumederol, Increase neb frequency and trial of BIPAP with ABG No evidence of acute central pulmonary emboli. Stable peripheral nodules in the mid left upper lobe and anterior apical right lower lobe, as well as likely posttreatment changes in the right middle lobe. Multilevel wedge compression deformities of the thoracic spine are also stable.
[2025-05-28 13:06] LABS: Arterial Blood Carboxyhemoglob 1.4 % (0.0-1.5); Blood Gas Oxyhemoglobin 95.7 % (94.0-97.0); Blood O2 Saturation 93.8 % (92.0-98.5)
[2025-05-28 13:07] LABS: Blood Gas Inspired Oxygen 32.0 %
[2025-05-28] MEDS: IPRATROPIUM BROM 0.5MG/2.5ML ONE (13:37)
[2025-05-28] MEDS: ALBUTEROL 2.5 MG/3 ML NEB SOL ONE (13:37)
[2025-05-28] MEDS: IPRATROPIUM BROM 0.5MG/2.5ML NEB SCH (13:39)
[2025-05-28] MEDS: ALBUTEROL 2.5 MG/3 ML NEB SOL NEB SCH (13:39)
[2025-05-28] MEDS ORDERED: ALBUTEROL 2.5 MG/3 ML NEB SOL NEB SCH (15:00)
[2025-05-28] MEDS ORDERED: IPRATROPIUM BROM 0.5MG/2.5ML NEB SCH (15:00)
[2025-05-28] MEDS: SPIRONOLACTONE 25 MG TABLET PO SCH (15:11)
[2025-05-28] MEDS: METHYLPREDNISOLONE 40 MG INJ IV SCH (16:47)
[2025-05-29 06:28] LABS: AST/SGOT 12 U/L (15-37); Absolute Lymphocytes (CBC) 0.6 K/uL (0.7-4.9); Albumin 3.6 g/dL (3.4-5.0); Albumin/Globulin Ratio 1.2 (1.1-1.8); Alkaline Phosphatase 57 U/L (45-117); Anion Gap 4.7 mEq/L (5.0-15.0); BUN Blood Urea Nitrogen 21 mg/dL (7-18); Globulin 3.1 g/dL (2.3-3.5); Glucose Level 111 mg/dL (74-106); Hematocrit 45.4 % (36.0-45.0); Hemoglobin 15.5 g/dL (12.0-15.0); MCH 31.5 pg (27.0-35.0); MCHC 34.2 g/dL (32.0-36.0); MCV 92.1 fL (80-100); MPV 7.9 fL (7.6-11.3); Magnesium 2.4 mg/dL (1.6-2.4); Nucleated RBC Absolute Count 0.0 (0-0); Nucleated Red Blood Cells % 0.0 % (0-0); Potassium 4.7 mEq/L (3.5-5.1); RBC Red Blood Cell Count 4.93 M/uL (3.86-4.86); White Blood Count 7.80 thou/uL (4.3-10.9)
[2025-05-29 06:34] LABS: ALT/SGPT < 14 U/L (13-56)
--- NOTE | 2025-05-29 12:55 | P.PN ---
Subjective Date of Service: 05/29/25 Chief Complaint: Acute COPD Exacerbation. Patient is doing much better today no new complaints was ambulating Review of Systems General: Weakness Respiratory: Shortness of Breath Physical Examination - Vital Signs Temperature: 97.5 F Blood Pressure: 139/78 Pulse: 66 Respirations: 18 Pulse Ox (%): 95 - Physical Exam General: Alert, Oriented x3 Respiratory: Clear to auscultation bilaterally, Diminished Cardiovascular: No edema, Regular rate/rhythm Assessment And Plan - Current Problems (Diagnosis) (1) COPD exacerbation Onset Date: 02/01/16 Current Visit: No Status: Acute Plan: Patient is 72 is doing much better today significant improvement ambulated I am not sure if this she experienced a side effect of the Keytruda in any case patient probably stable for discharge resume her home medications prednisone 20 twice daily for a week and was then tapered to 10 twice a day otherwise she is on maximum bronchodilator therapy at home we will follow-up in my office next week continue with antibiotics for a total of 5 days
[2025-05-29] MEDS: IPRATROPIUM BROM 0.5MG/2.5ML NEB SCH ×2 (13:00→19:00)
[2025-05-29] MEDS: ALBUTEROL 2.5 MG/3 ML NEB SOL NEB SCH (19:00)
[2025-05-29] MEDS: predniSONE 20 MG TAB PO SCH (20:47)
[2025-05-29] MEDS: ALBUTEROL 2.5 MG/3 ML NEB SOL ONE (22:22)
[2025-05-29] MEDS: IPRATROPIUM BROM 0.5MG/2.5ML ONE (22:22)
[2025-05-29] MEDS: ARFORMOTEROL TARTRATE 15 MCG/2 ML VIAL.NEB ONE (22:28)
[2025-05-30] MEDS: IPRATROPIUM BROM 0.5MG/2.5ML ONE (02:51)
[2025-05-30] MEDS: ALBUTEROL 2.5 MG/3 ML NEB SOL ONE (02:51)
--- NOTE | 2025-05-30 11:43 | P.PN ---
Date of Service: 05/26/25 Subjective Patient continues to improve. Patient denies any new complaints. Clinical symptoms are stable. Physical Examination - Physical Exam Vitals: reviewed General: In no apparent distress, Oriented x3, Cooperative; HEENT: Elevated JVP Respiratory: Diminished, Crackles/rales, Expiratory wheezes, Inspiratory wheezes; poor inspiratory effort Cardiovascular: Regular rate/rhythm, Normal S1 S2, No gallops Gastrointestinal: Normal bowel sounds, Soft and benign, Non-distended, W/out hepatomegaly, No ascites Musculoskeletal: No clubbing, No swelling, No contractures, No erythema, No tenderness, No warmth Integumentary: No rashes, Neurological: No focal deficits Assessment and Plan -Assessment/Plan Patient is a 79-year-old female admitted to inpatient with diagnosis of acute COPD exacerbation, with acute hypoxic respiratory failure. Patient currently on 3 L of oxygen. (1) Acute COPD exacerbation with hypoxic respiratory failure. -O2 3 L can titrate according to the patient demand to maintain O2 saturation above 90%. -Bivona 15 mcg nebulizer twice daily. -IV steroid -DuoNeb every 6 hours as needed. -Levaquin 500 mg p.o. daily. -Consulted correctional agency director Dr. Earl (2) Nicotine use disorder. Patient has been smoking for more than 50 years plus.. -After discussing with the patient, she opted for a nicotine patch at this time. (3) Chronic/hypercholesterolemia. -Patient medications to be resumed after reconciliation is done. (4) Explained the entire treatment plan to the patient, and daughter present at the bedside, solicit questions answered and voiced understanding. Discharge Plan: Home Plan to discharge in: Greater than 2 days - Advance Directives Does patient have a Living Will: No Does patient have a Durable POA for Healthcare: No - Code Status/Comfort Care Code Status Assessed: Yes Code Status: Full Code Critical Care: No Time Spent Managing Pts Care (In Minutes): 55
[2025-05-30] MEDS: POLYETHYL GLY 3350 17 GM/DOSE PO ONE (12:39)
[2025-05-31] MEDS: IPRATROPIUM BROM 0.5MG/2.5ML ONE (00:21)
[2025-05-31] MEDS: ALBUTEROL 2.5 MG/3 ML NEB SOL ONE (00:21)
[2025-05-31 05:12] VITALS: TEMP 97.7
--- NOTE | 2025-05-31 09:14 | P.PN ---
Date of Service: 05/30/25 Subjective Patient's respiratory status is improved. She is able to ambulate around the nurses station without a lot of difficulty. Patient states she is feeling much better. Patient denies any new complaints. Physical Examination - Physical Exam Vitals: reviewed General: In no apparent distress, Oriented x3, Cooperative; HEENT: Within normal limits except for elevated JVP. Respiratory: Diminished, end expiratory wheezing but otherwise clear Cardiovascular: Regular rate/rhythm, Normal S1 S2, No gallops Gastrointestinal: Normal bowel sounds, Soft and benign, Non-distended, W/out hepatomegaly, No ascites Musculoskeletal: No clubbing, No swelling, No contractures, Integumentary: No rashes, Neurological: No focal deficits Assessment and Plan -Assessment/Plan Patient is a 79-year-old female admitted to inpatient with diagnosis of acute COPD exacerbation, with acute hypoxic respiratory failure. Patient currently on 3 L of oxygen. (1) Acute COPD exacerbation with hypoxic respiratory failure. - O2 3 L can titrate according to the patient demand to maintain O2 saturation above 90%. Patient still requiring home oxygen. Will arrange for this and anticipate discharge afterwards. - Patient on long-acting beta agonist Brovana; 15 mcg nebulizer twice daily. Will give patient ipratropium with Brovana - Continue with IV steroids; continue to change to oral steroids - DuoNeb every 6 hours as needed. 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 (2) Nicotine use disorder. Patient has been smoking for more than 50 years plus.. -After discussing with the patient, she opted for a nicotine patch at this time. (3) Chronic/hypercholesterolemia. -Patient medications to be resumed after reconciliation is done. (4) Heart failure with preserved ejection fraction; patient with early stage diastolic dysfunction. Continue with strict blood pressure control. May gently diurese (5) Secondary polycythemia; secondary to COPD. Continue monitoring H&H as an outpatient. No significant polycythemia at this time so patient does not need phlebotomy at this time.. Explained the entire treatment plan to the patient, and daughter present at the bedside, solicit questions answered and voiced understanding. Discharge Plan: Home Plan to discharge in: Greater than 2 days - Advance Directives Does patient have a Living Will: No Does patient have a Durable POA for Healthcare: No - Code Status/Comfort Care Code Status Assessed: Yes Code Status: Full Code Critical Care: No Time Spent Managing Pts Care (In Minutes): 55
--- NOTE | 2025-05-31 09:16 | P.PN ---
Date of Service: 05/29/25 Subjective Patient started to ambulate much better. Patient's clinical symptoms are improving. Patient denies any new complaints. Clinical symptoms are stable. Physical Examination - Physical Exam Vitals: reviewed General: In no apparent distress, Oriented x3, Cooperative; HEENT: Within normal limits except for elevated JVP. Respiratory: Diminished, end expiratory wheezing but otherwise clear Cardiovascular: Regular rate/rhythm, Normal S1 S2, No gallops Gastrointestinal: Normal bowel sounds, Soft and benign, Non-distended, W/out hepatomegaly, No ascites Musculoskeletal: No clubbing, No swelling, No contractures, Integumentary: No rashes, Neurological: No focal deficits Assessment and Plan -Assessment/Plan Patient is a 79-year-old female admitted to inpatient with diagnosis of acute COPD exacerbation, with acute hypoxic respiratory failure. Patient currently on 3 L of oxygen. (1) Acute COPD exacerbation with hypoxic respiratory failure. - Continue with O2 per protocol. - O2 3 L can titrate according to the patient demand to maintain O2 saturation above 90%. - Arranging for home oxygen - Patient on long-acting beta agonist Brovana; 15 mcg nebulizer twice daily. Will give patient ipratropium with Brovana - Continue with IV steroids; continue to change to oral steroids - DuoNeb every 6 hours as needed. 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 (2) Nicotine use disorder. Patient has been smoking for more than 50 years plus.. -After discussing with the patient, she opted for a nicotine patch at this time. (3) Chronic/hypercholesterolemia. -Patient medications to be resumed after reconciliation is done. (4) Heart failure with preserved ejection fraction; patient with early stage diastolic dysfunction. Continue with strict blood pressure control. May gently diurese (5) Secondary polycythemia; secondary to COPD. Continue monitoring H&H as an outpatient. No significant polycythemia at this time so patient does not need phlebotomy at this time.. Explained the entire treatment plan to the patient, and daughter present at the bedside, solicit questions answered and voiced understanding. Discharge Plan: Home Plan to discharge in: Greater than 2 days - Advance Directives Does patient have a Living Will: No Does patient have a Durable POA for Healthcare: No - Code Status/Comfort Care Code Status Assessed: Yes Code Status: Full Code Critical Care: No Time Spent Managing Pts Care (In Minutes): 30
--- NOTE | 2025-05-31 09:19 | P.PN ---
Date of Service: 05/28/25 Subjective Patient continues to improve. Patient denies any new complaints. Clinical symptoms are stable. Physical Examination - Physical Exam Vitals: reviewed General: In no apparent distress, Oriented x3, Cooperative; HEENT: Within normal limits except for elevated JVP. Respiratory: Diminished, end expiratory wheezing but otherwise clear Cardiovascular: Regular rate/rhythm, Normal S1 S2, No gallops Gastrointestinal: Normal bowel sounds, Soft and benign, Non-distended, W/out hepatomegaly, No ascites Musculoskeletal: No clubbing, No swelling, No contractures, Integumentary: No rashes, Neurological: No focal deficits Assessment and Plan -Assessment/Plan Patient is a 79-year-old female admitted to inpatient with diagnosis of acute COPD exacerbation, with acute hypoxic respiratory failure. Patient currently on 3 L of oxygen. (1) Acute COPD exacerbation with hypoxic respiratory failure. - Patient on long-acting beta agonist Brovana; 15 mcg nebulizer twice daily. Will give patient ipratropium with Brovana; patient states he feels much better. Clinical symptoms are improving. - Continue with IV steroids; continue to change to oral steroids and continue with tapering as an outpatient - DuoNeb every 6 hours as needed. 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 - Arrange for home oxygen (2) Nicotine use disorder. Patient has been smoking for more than 50 years plus.. -After discussing with the patient, she opted for a nicotine patch at this time. (3) Chronic/hypercholesterolemia. -Patient medications to be resumed after reconciliation is done. (4) Heart failure with preserved ejection fraction; patient with early stage diastolic dysfunction. Continue with strict blood pressure control. May gently diurese (5) Secondary polycythemia; secondary to COPD. Continue monitoring H&H as an outpatient. No significant polycythemia at this time so patient does not need phlebotomy at this time.. Explained the entire treatment plan to the patient, and daughter present at the bedside, solicit questions answered and voiced understanding. Discharge Plan: Home Plan to discharge in: Greater than 2 days - Advance Directives Does patient have a Living Will: No Does patient have a Durable POA for Healthcare: No - Code Status/Comfort Care Code Status Assessed: Yes Code Status: Full Code Critical Care: No Time Spent Managing Pts Care (In Minutes): 30
--- NOTE | 2025-05-31 09:22 | P.PN ---
Date of Service: 05/27/25 Subjective Patient is still tachypneic resting in bed. Patient having a hard time with her respiratory status. Patient unable to take deep breaths at this time. Continue with current plan of care Physical Examination - Physical Exam Vitals: reviewed General: In no apparent distress, Oriented x3, Cooperative; HEENT: Elevated JVP otherwise within normal limits Respiratory: Diminished, end expiratory wheezing but otherwise clear Cardiovascular: Regular rate/rhythm, Normal S1 S2, No gallops Gastrointestinal: Normal bowel sounds, Soft and benign, Non-distended, W/out hepatomegaly, No ascites Musculoskeletal: No clubbing, No swelling, No contractures, Integumentary: No rashes, Neurological: No focal deficits Assessment and Plan -Assessment/Plan Patient is a 79-year-old female admitted to inpatient with diagnosis of acute COPD exacerbation, with acute hypoxic respiratory failure. Patient currently on 3 L of oxygen. (1) Acute COPD exacerbation with hypoxic respiratory failure. - Respiratory status has improved. Will go ahead and start patient on long- acting beta agonist Brovana; 15 mcg nebulizer twice daily. Will give patient ipratropium with Brovana - Continue with IV steroids; - DuoNeb every 6 hours as needed. - Continue with IV antibiotics (2) Nicotine use disorder. Patient has been smoking for more than 50 years plus.. -After discussing with the patient, she opted for a nicotine patch at this time. (3) Chronic/hypercholesterolemia. -Patient medications to be resumed after reconciliation is done. (4) Presumed heart failure; echo pending; Explained the entire treatment plan to the patient, and daughter present at the bedside, solicit questions answered and voiced understanding. Discharge Plan: Home Plan to discharge in: Greater than 2 days - Advance Directives Does patient have a Living Will: No Does patient have a Durable POA for Healthcare: No - Code Status/Comfort Care Code Status Assessed: Yes Code Status: Full Code Critical Care: No Time Spent Managing Pts Care (In Minutes): 30
[2025-05-31 10:31] VITALS: O2SAT 99
[2025-05-31 12:19] VITALS: BP 116/62
== END 2025-05-31 14:29 | disposition home or self-care (01) | DRG 190 ==
LOC: ER 23:53 → ERHOLD 05-26 03:48 → 4TH 05-26 04:30
PROVIDERS: ADMIT Internal Medicine; ATTEND Hospitalist
DX: J44.1 Chronic obstructive pulmonary disease with (acute) exacerbation (principal); J96.01 Acute respiratory failure with hypoxia; I50.30 Unspecified diastolic (congestive) heart failure; C34.90 Malignant neoplasm of unspecified part of unspecified bronchus or lung; Z85.118 Personal history of other malignant neoplasm of bronchus and lung; Z92.21 Personal history of antineoplastic chemotherapy; I10 Essential (primary) hypertension; E78.5 Hyperlipidemia, unspecified; Z79.02 Long term (current) use of antithrombotics/antiplatelets; Z79.51 Long term (current) use of inhaled steroids; Z86.73 Personal history of transient ischemic attack (TIA), and cerebral infarction without residual deficits; Z79.52 Long term (current) use of systemic steroids; Z90.710 Acquired absence of both cervix and uterus; Z98.890 Other specified postprocedural states; Z72.0 Tobacco use; Z71.6 Tobacco abuse counseling; E78.00 Pure hypercholesterolemia, unspecified; Z79.82 Long term (current) use of aspirin; I11.0 Hypertensive heart disease with heart failure; D75.1 Secondary polycythemia; Z11.52 Encounter for screening for COVID-19; Z23 Encounter for immunization
CPT/HCPCS: 36415; 36600; 71045; 71275; 80053; 81001; 82805; 82947; 83605; 83735; 83880; 84484; 85025; 85610; 85730; 87040; 87428; 93005; 93306; 94640; 94660; 94760; 96365; 96367; 96375; 97116; 97161; 97530; 99285; J0456; J0696; J1650; J1938; J2405; J2919; J3475; J7050; J7512; J7605; J7613; J7644; Q9967